=== PATIENT | male | born 1960 | race Caucasian/White ===

== ENCOUNTER 2024-05-20 14:10 | Inpatient (IN) | payer SELFPAY ==
[2024-05-20] VITALS (10 sets, daily range): BP systolic 116–182; BP diastolic 58–109; BMI 27.3
[2024-05-20] MEDS: ATIVAN 1 MG IV ×2 (09:14→21:00)
[2024-05-20] MEDS: ZOFRAN 4 MG IV (09:14)
--- NOTE | 2024-05-20 09:14 | ED.GENMED ---
History of Present Illness
General
Chief Complaint: Change in Mental Status
Source: patient
Exam Limitations: clinical condition and altered mental status
Time Seen by Provider: 05/20/24 08:56
Nursing documentation reviewed up to this point in time: agreed with
History of Present Illness
History of Present Illness:
63-year-old male diabetic alcoholic found at his friend's house not acting right last alcohol was yesterday, currently he does get some shakes possible seizures when he does not drink, this is unconfirmed, denies any trauma, fevers he feels nauseous
he looks disheveled has vomit next to his mouth he knows he is at the hospital he thinks is 2020 shaky he is not quite sure how he got here
Additional history female friend who he was staying with patient has a history of alcoholism and heroin use, he lives in [place] had some alcohol last evening apparently, this morning had a seizure patient apparently has been in rehab before, but
signed himself out
Past History
Past History
ED Past Medical History: NIDDM
Social History
Tobacco: Non-smoker
Alcohol: Daily
Drug: None
Personal: Single
Living: alone
Employment: Not employed
Review of Systems
Review of Systems
Unable to obtain full review of systems at this time due to: due to acuity
All Other Systems: Not applicable
Constitutional: Reports no symptoms; Denies fever or fatigue
EENT: Reports no symptoms
Respiratory: Reports no symptoms
Cardiac: Reports no symptoms
ABD/GI: Reports nausea
Phy Exam
Physical Exam
Physical Exam:
Physical Exam
General: 63 male with disheveled somewhat tremulous
Neck: Vomit from the right side of the face
Heart: Tachycardic
Lungs: no acute respiratory distress. clear bilaterally
Abdomen: Nontender
Neuro: Oriented to person and place thinks is 2020
Skin: no rash
Psychiatric: Disheveled
Extremities: no edema.
Course
Orders/Labs/Results
Orders:
Orders
05/20/24 08:48
EKG [Electrocardiogram (*1)] Urgent
Reason for Study: Bradycardia / Tachycardia
05/20/24 08:49
EKG- Treatment ONCE
05/20/24 09:04
Alcohol Urgent
Complete Blood Count/With Diff Urgent
Comprehensive Metabolic Panel Urgent
Glycohemoglobin (HgbA1c) Urgent
Magnesium Urgent
05/20/24 09:05
Lorazepam [Ativan] 1 mg IV NOW STA
Ondansetron Injectable [Zofran] 4 mg IV NOW STA
05/20/24 09:16
CT Head W/o Iv Contrast Urgent
Comment:
Reason For Exam: Confusion possible trauma
05/20/24 10:00
0.9% Sodium Chloride 1000 ml [Nss] 1,000 ml Mvi, Adult [Multivitamin] 10 ml Thiamine Injection 100 mg IV 250 mls/hr
05/20/24 10:03
Magnesium Sulfate 1 grams 0.9% Sodium Chloride 100 ml [Nss] 100 ml IV NOW
05/20/24 10:38
Drug Screen, Urine [Urine Drug Abuse Screen] Urgent
05/20/24 11:17
Case Management Consult ONCE
Case Management Consult: Discharge Planning
05/20/24 13:33
Admit Patient As Directed
Co-Sign Provider:
Level of Care: Inpatient admission
Assign to:: Telemetry
Physician / Group: Hospitalist
Diagnosis: Alcohol withdrwal syndrome
Reason for Telemetry: Arrhythmia
Date to Stop Telemetry: 05/23/24
Time to Stop Telemetry: 11:00
Reason for Hospitalization: Alcohol withdrawal syndrome
Expected length of stay greater than two midnights?: Yes
ELOS- Estimated Length of Stay in days: 3
I certify the patient meets the requirements for IP care: Yes
05/20/24 13:35
PRN Pain Medication Management As Directed
May give lesser potent ordered pain med per pt: Yes
preference::
Protocol:: Medication orders for pain may be administered in a
manner that supports deferring to patient preference
when the pt is:
- Requesting an ordered lesser potent pain medication.
Least to most potent pain medications are defined
as: acetaminophen < NSAID < tramadol < opioids
(morphine, oxycodone, hydromorphone).
- Requesting a lesser dose of the same medication IF
ORDERED.
- Requesting a less intrusive route of administration
if both routes are prescribed by the provider (PO <
IV).
05/20/24 13:36
Case Management Consult Once
Case Management Consult: Other
Comment: Substance abuse counseling
B-Hydroxybutyrate Urgent
Urinalysis Routine
Urine Drug Abuse Screen Routine (Cancelled)
FOLic ACID [Folvite] 1 mg 0.9% Sodium Chloride 50 ml [Nss] 50 ml IV DAILYPRN
Lorazepam [Ativan] 1 mg PO Q2HPRN PRN
MSAS SCORE As Directed
MSAS Score 0-4: Repeat MSAS every 2 hours until 0-4 for three consecutive assessments, then every 4 hours x 48
hours.
MSAS Score 5-7: For MILD withdrawl symptoms. Repeat MSAS and RASS every 2 hours
MSAS Score 8-11: For MODERATE withdrawal symptoms. Repeat MSAS and RASS every 1 hour. Consider ICU or IMU
level of care.
MSAS Score > 11: For SEVERE withdrawal symptoms. Repeat MSAS and RASS every 1 hour. Notify provider, consider
ICU level of care.
MSAS Additional Instructions: If no improvement or no decrease in score from severe to moderate within 12
hours, consult psychiatry
MSAS Notify Provider: Notify provider if patient requires more than 10 mg of Lorazepam in eight hour period.
05/20/24 13:38
Dextrose 50%-Water [Dextrose 50% Syringe] 12.5 grams IV [id number] PRN
Glucagon [GlucaGen] 1 mg IM PRN PRN
Ondansetron HCl [Zofran] 4 mg PO Q8HPRN PRN
05/20/24 13:40
Bedside Glucose Monitoring As Directed
Frequency: AC&HS
Additional Instructions:: Change to q6h if pt on TPN, tube feeding or not eating
05/20/24 13:41
DX Deep Vein Thrombosis Video Routine
05/20/24 14:00
FOLic ACID [Folvite] 1 mg PO DAILY
05/20/24 Dinner
1800 calorie (15 carb) Diabetic
At Your Request: Limited Participation
Does patient need a safe tray?: No
05/20/24 16:30
Insulin Aspart Corrective Mod [Novolog Flexpen-Moderate Resistance] See Protocol SC AC
05/20/24 18:00
Enoxaparin Sodium [Lovenox] 40 mg SC QPM
05/20/24 20:00
Thiamine Injection 200 mg IV Q12
05/21/24 06:00
Basic Metabolic Panel IN AM
Complete Blood Count/No Diff IN AM
Glycohemoglobin (HgbA1c) IN AM
05/23/24 20:00
Thiamine HCl [Vitamin B1] 100 mg PO BID
Abnormal Lab Results
05/20/24
09:04
RBC 3.89 L 10^6/uL
(4.70-6.10)
Hgb 12.5 L g/dL
(13.0-18.0)
Hct 35.1 L %
(39.0-52.0)
MCH 32.1 H pg
(27.0-31.0)
Absolute Neuts (auto) 6.6 H 10^3/uL
(1.4-6.5)
Absolute Lymphs (auto) 0.8 L 10^3/uL
(1.2-3.4)
Neutrophils % 84.0 H %
(42.2-75.2)
Lymphocytes % 9.5 L %
(20.5-51.1)
Chloride 96 L mmol/L
(98-107)
Glucose 252 H mg/dl
(70-99)
Magnesium 1.2 L mg/dl
(1.6-2.3)
Alkaline Phosphatase 191 H U/L
(38-126)
05/20/24 09:04
05/20/24 09:04
Vital Signs
Initial and Last Documented VS:
Initial Vital Signs
Temp Pulse Resp BP Pulse Ox
99 F 111 20 140/58 95
05/20/24 08:50 05/20/24 08:50 05/20/24 08:50 05/20/24 08:50 05/20/24 08:50
Last Documented Vital Signs
Temp Pulse Resp BP Pulse Ox
99 F 78 15 129/70 100
05/20/24 08:50 05/20/24 11:45 05/20/24 10:30 05/20/24 11:00 05/20/24 11:45
MDM/Problems Addressed
Differential Diagnosis Includes:
DTs alcohol withdrawal trauma electrolyte abnormality arrhythmia hypoglycemia
MDM/Problems Addressed:
Confusion
Chronic conditions affecting care:
Diabetes alcoholism
Acute Exacerbation and/or Progression of Chronic Illness:
Diabetes alcoholic
*Radiology
Radiology exam reviewed: radiology read reviewed
*Pulse Oximetry
Patient hypoxic: no
*EKG
Interpreted by ED Provider?: Yes
Interpretation: abnormal
Comparison EKG: no comparison EKG present
Heart Rate: 78
Rate: normal
Rhythm: sinus
[place]: normal axis
Ischemia: non-specific ST changes
*Agricultural Economics Professor Interpretation
Rate: normal
Interpretation: normal
Heart Rate: 78
Rhythm: sinus
*Critical Care Note
Total Time (30-74mins, 75-104mins- exclusive of procedures): Not Applicable
Update Note
Update Note:
Labs noted electrolytes replaced CT noted additional history and HPI this is an alcohol withdrawal seizure
ED Attending Note
-
Portions of this chart may have been created with voice recognition software.� Occasional wrong word or��sound alike� substitutions may have occurred due to the inherent limitations of voice recognition software.
Discharge Plan
Departure
Patient Disposition: Admit
Date of Disposition: 05/20/24
Time of Disposition: 10:39
Admit to: Telemetry
Presentation/result/management discussed w/ accepting MD/DO: Hospitalist
Patient with high blood pressure during this ER visit?: No
Condition: Fair
Discharge Problem:
Alcohol withdrawal delirium
Interventions
Interventions:
*Risk Screen - Suicide Last Done: 05/20/24 08:58
*General Assessment Last Done: 05/20/24 08:58
*Neglect/Abuse Screening Last Done: 05/20/24 08:58
ED- Fall Risk Assessment Last Done: 05/20/24 08:59
*ED COVID-19 Vaccine History Last Done: 05/20/24 08:58
ED- Pulmonary Assessment Last Done: 05/20/24 08:59
ED- Neurological Assessment Last Done: 05/20/24 08:59
ED- Cardiac Assessment Last Done: 05/20/24 08:59
[2024-05-20 09:51] LABS: % Basophils 0.5 % (0-2); % Eosinophils 0.4 % (0-6); % Immature Granulocytes 0.3 % (0-0.5); % Lymphocytes 9.5 % (20.5-51.1); % Monocytes 5.3 % (1.7-9.3); Absolute Lymphocytes 0.8 10^3/uL (1.2-3.4); Absolute Monocytes 0.4 10^3/uL (0.1-0.6); Absolute Neutrophils 6.6 10^3/uL (1.4-6.5); Hematocrit 35.1 % (39.0-52.0); Hemoglobin 12.5 g/dL (13.0-18.0); Mean Corp Hgb Conc. 35.6 g/dL (33.0-37.0); Mean Corpuscular Hgb 32.1 pg (27.0-31.0); Mean Corpuscular Volume 90.2 fL (80.0-94.0); Mean Platelet Volume 9.5 fL (7.4-10.4); Nucleated Red Blood Cells % 0 % (-); Platelet Count 157 10^3/uL (130-400); Red Blood Cell Count 3.89 10^6/uL (4.70-6.10); White Blood Cell Count 7.9 10^3/uL (4.8-10.8)
[2024-05-20 09:53] LABS: ALT (SGPT) 23 U/L (0-50); AST (SGOT) 43 U/L (17-59); Albumin 3.6 g/dl (3.5-5.0); Alkaline Phosphatase 191 U/L (38-126); Blood Urea Nitrogen 13 mg/dl (9-20); Calcium 8.7 mg/dl (8.4-10.2); Carbon Dioxide 23 mmol/L (22-30); Chloride 96 mmol/L (98-107); Estimated Creatinine Clearance 108 ml/min; Glucose 252 mg/dl (70-99); Magnesium 1.2 mg/dl (1.6-2.3); Potassium 3.6 mmol/L (3.5-5.1); Sodium 138 mmol/L (135-145); Total Protein 6.4 g/dl (6.3-8.2); eGFR > 60.00
[2024-05-20 09:56] LABS: Alcohol None Detected
[2024-05-20] MEDS: MULTIVITAMIN 1011 MG IV (10:18)
[2024-05-20] MEDS: MAGNESIUM SULFATE 102 GRAMS IV (10:18)
[2024-05-20] MEDS: MULTIVITAMIN 1011 ML IV (10:18)
--- NOTE | 2024-05-20 10:27 | PHANOTE ---
MED REC NOTE- PATIENT STATED HE TAKES INSULIN SHORT ACTING, BUT UNABLE TO FIND AT [facility], THEY DO NOT HAVE ANY RECENT FILLS FOR HIM. PATIENT STATED HE USED IT A COUPLE WEEKS AGO
--- NOTE | 2024-05-20 12:30 | CM ---
CM reviewed medical records. CM met with patient in room. Patient was pleasant and cooperative during consult. Patient stated that he lives in [place] and was up in [facility] visiting a friend. CM inquired about patient's housing options.
Patient stated that he is able to return to the [place] address
[address]
[facility]
Patient was encouraged to secure transportation to [place]. Patient stated that he would 'work on it'.
CM discussed [facility] and services available to patient. Patient stated that he would be agreeable to [facility] 'just stopping by'. CM placed call to [facility] and spoke with [facility]. [facility] will meet with patient tomorrow and update CM.
CM confirmed patient does have a PCP and is using [facility] for medication services.
PLAN: home vs Home with [facility] services.
--- NOTE | 2024-05-20 15:07 | CON.HOSP ---
Family Physician
-
Family Physician: Jass Arnett
Chief Complaint
-
Fatigue, nausea
History of Present Illness
63-year-old male with past medical history of non-insulin dependent diabetes, chronic alcohol use disorder, chronic opioid use disorder. He lives in [place], came up here for Thanksgiving yesterday. Had usual amount of drink (4 points of
whiskey), however, started appearing confused and shaking. Girlfriend (Barbara Lanier) suspected seizure activity in the morning and brought him to the ED. He does mention stopping heroin about a week before (uses heroin on a daily basis). Feels
nauseous. Unsure about vomiting. Denies fevers or chills. Denies any anxiety/palpitation/chest pain/sweating. Denies headache. No recent URI or diarrhea. Does complain of dysuria. But no frequent urination. Last bowel movement was yesterday
morning which was of normal consistency. Appetite is okay. Would like to have some chato michaelle to drink because he is extremely thirsty. Mentions he is upset and tired.
Medical History
Past Medical History
Additional Past Medical History:
see above
Additional Past Surgical History:
Bunion surgery of right toe
Social History
Tobacco: Non-smoker
Alcohol: Daily (4 points of whiskey)
Drug: None
Personal: Other (Lives with girlfriend)
Employment: Not Employed
Family History
Family History: Reviewed & Not Pertinent
Allergies / Home Medications
Allergies reflects when Allergies were last updated in [employer].
Home Medications with original date entered in [employer]
Allergy/Medication List:
Allergies
Allergy/AdvReac Type Severity Reaction Status Date / Time
No Known Allergies Allergy Verified 05/20/24 08:50
Home Medications
folic acid 1 mg tablet 1 mg PO DAILY Supplement 05/20/24
therapeutic multivitamin 1 tab PO DAILY Supplement 05/20/24
Review of Systems
-
Unable to obtain full review of systems at this time due to: Other (See HPI)
History Source: Patient
Physical Exam
Vital Signs
Vital Signs
Temp Pulse Resp BP Pulse Ox
99 F 78 15 129/70 100
05/20/24 08:50 05/20/24 11:45 05/20/24 10:30 05/20/24 11:00 05/20/24 11:45
Physical Exam
HEENT: Normocephalic, Anicteric and Other (Mucous membranes dry, dried food around mouth, pupils midsized and reactive to light)
Respiratory: Clear and Other
Cardiac: S1/S2 and Regular Rhythm
GI: Soft, Non Tender, Non Distended and Normal Bowel Sounds
Musculoskeletal: No Clubbing, No Cyanosis and No Edema
Skin: Warm and Dry
Neuro: Awake, Alert, Oriented, AO x 3, No Motor Deficits and Other (No ataxia)
Psych: Other (Slightly drowsy)
Laboratory Results
-
Laboratory Results
05/20/24 09:04
05/20/24 09:04
Total Bilirubin 1.0 mg/dl (0.2-1.3) 05/20/24 09:04
AST 43 U/L (17-59) 05/20/24 09:04
ALT 23 U/L (0-50) 05/20/24 09:04
Alkaline Phosphatase 191 U/L (38-126) H 05/20/24 09:04
Impression / Plan
-
# Alcohol withdrawal
- CIWA=6 (after 1 mg Ativan)
- No seizure activity or tremors at the time of visit
- Received Zofran PRN, Ativan 1 mg, 1 lit normal saline with multivitamin in ED
- Hypomagnesemia-magnesium drip by ED
- MSAS protocol
- Tele monitoring
- Consulted case management
- Follow BMP, CBC
# Opioid withdrawal
- COWS=4
- drug screen positive for fentanyl
- Subutex
# Svz-mzktcsa-ffestddrl diabetes
- Sliding scale insulin mod
- Diabetic diet
- HgbA1C
- B-hydroxybutirate positive, Anion gap =19, watch for DKA
# DVT prophylaxis
- Lovenox
[2024-05-20] MEDS: FOLVITE 1 MG PO (16:02)
[2024-05-20 16:42] LABS: Urine Albumin Negative (Neg - Trace); Urine Bilirubin Negative (Negative); Urine Character Clear (Clear); Urine Color Yellow; Urine Glucose 3+ (Negative); Urine Ketone 3+ (Negative); Urine Leukocyte Negative (Negative); Urine Nitrite Negative (Negative); Urine Occult Blood Negative (Negative); Urine Specific Gravity 1.025 (<1.030); Urine Urobilinogen Negative (Neg - 1+)
[2024-05-20 16:43] LABS: Phosphorus 3.3 mg/dl (2.5-4.5)
[2024-05-20 16:49] LABS: B-Hydroxybutyrate 2.78 mmol/L (0.02-0.27)
[2024-05-20 16:52] LABS: Glucose - Point of Care > 600 mg/dl (70-99)
[2024-05-20 16:57] LABS: Amphetamines Negative (Negative); Barbiturates Negative (Negative); Benzodiazepines Positive (Negative); Buprenorphine Negative (Negative); Cocaine Negative (Negative); Marijuana Negative (Negative); Methadone Negative (Negative); Methamphetamines Negative (Negative); Opiates Negative (Negative); Phencyclidine Negative (Negative); Tricyclic Antidepressants Negative (Negative)
[2024-05-20 17:02] LABS: Fentanyl, Urine Positive (Negative)
[2024-05-20 17:14] LABS: Glucose 358 mg/dl (70-99)
[2024-05-20] MEDS: NOVOLOG FLEXPEN-MODERATE RESISTANCE 11 UNITS SC (17:23)
[2024-05-20] MEDS: LOVENOX 40 MG SC (17:25)
[2024-05-20 17:42] LABS: INR 1.33; PT 16.7 Sec (11.4-14.6)
[2024-05-20 17:43] LABS: APTT 29.5 Sec (23.4-35.0)
--- NOTE | 2024-05-20 18:16 | PTCARENOTE ---
Lucien Aguilera from [facility] came to see the patient. Pt was referred for outpatient resources on d/c
[2024-05-20 18:27] LABS: Glucose - Point of Care 304 mg/dl (70-99)
[2024-05-20] MEDS: THIAMINE INJECTION 200 MG IV (20:27)
[2024-05-20 20:42] LABS: Glucose - Point of Care 329 mg/dl (70-99)
[2024-05-20] MEDS: NSS (PRESERVATIVE FREE) 0.5 ML IV (20:59)
[2024-05-20] MEDS: ZOFRAN 4 MG PO (21:01)
[2024-05-20] MEDS: NOVOLOG FLEXPEN 7 UNITS SC (21:41)
[2024-05-20] MEDS: LANTUS 0.12 UNITS SC (21:49)
--- NOTE | 2024-05-20 22:30 | PTCARENOTE ---
Addendum entered by Leyla Soria RN 05/21/24 06:19:
0600 Pt MSAS at 11, medications given. DONOR SPECIALIST notified. Pt transferred to ICU. Soft limb restraints applied at 0412. Pt sleeping.
Addendum entered by Leyla Soria RN 05/21/24 06:17:
0400 Pt becoming more restless and agitated. Pt unsteady on his feet. Pt MSAS at an 11, 2mg of ativan given. Pt experiencing nausea and vomiting, zofran given. Flor Eastman at bedside. Will recheck in an hour.
Original Note:
Pt MSAS 8. Pt BP 182/109 HR sustaining in the 130s. Christopher EastmanNP notified and at bedside. Pt becoming more confused, diaphoretic and vomiting. Medications given, see MAR.
[2024-05-20] MEDS: ATIVAN 2 MG IV (22:46)
[2024-05-20] MEDS: NSS (PRESERVATIVE FREE) 1 ML IV (22:47)
[2024-05-20 23:06] LABS: Glucose - Point of Care 267 mg/dl (70-99)
--- NOTE | 2024-05-20 23:14 | HPS.HSE ---
Addendum entered and electronically signed by Jass Giles MD 05/21/24 00:05:
Attending Addendum-
I performed a history and physical exam of the patient and discussed his management with the resident. I reviewed the resident's note and agree with the documented findings and plan of care CC/HPI- Sent to ED for etoh w/d and possible seizure
activity. Patient is fatigued and has poor recollection of events. States he is thirsty and would like treatment. Admits to using heroin but 'hasnt used in a while' Full 12 point ROS reviewed and negative except as documented Exam- vitals reviewed
in EMR GEN-NAD heart tachycardic lungs clear abd soft NT LE no edema
# ETOH w/d / AUD
- 4 pints whiskey daily
- MSAS with benzos
- advised to quit
- c/s CM/[facility]
- monitor on tele watch for seizure activity
# OUD and W/D
- uses heroin daily
- COWS
- suboxone PRN
- c/s CM/[facility]
# Hypomagnesemia
- replete
# DM2
- not taking meds
- start insulin
- check HBa1c
CODE FULL
DVTp-lovenox
ACP
Patient consented to discuss, was alone, time spent explanation of advance directives, changes in health status, patient�s health care wishes if the patient becomes unable to make health decisions, goals of care, code status, and prognosis- 16
minutes
Time spent coordinating care, review of plan of care with resident, personally reviewed previous records in EMR, med rec, labs, radiology, d/w nursing, total time documented is exclusive of any additional time listed that was spent in advance care
planning discussion -� 75 minutes
Original Note:
Family Physician
-
Family Physician: Jass Arnett
Chief Complaint
-
Fatigue, nausea
History of Present Illness
63-year-old male with past medical history of non-insulin dependent diabetes, chronic alcohol use disorder, chronic opioid use disorder. He lives in [place], came up here for Thanksgiving yesterday. Had usual amount of drink (4 points of
whiskey), however, started appearing confused and shaking. Girlfriend (Barbara Lanier) suspected seizure activity in the morning and brought him to the ED. He does mention stopping heroin about a week before (uses heroin on a daily basis). Feels
nauseous. Unsure about vomiting. Denies fevers or chills. Denies any anxiety/palpitation/chest pain/sweating. Denies headache. No recent URI or diarrhea. Does complain of dysuria. But no frequent urination. Last bowel movement was yesterday
morning which was of normal consistency. Appetite is okay. Would like to have some chato michaelle to drink because he is extremely thirsty. Mentions he is upset and tired.
Medical History
Past Medical History
Past Medical History: Reports Other (see HPI)
Additional Past Medical History:
see above
Past Surgical History: Reports Other (Bunion r toe)
Additional Past Surgical History:
Bunion surgery of right toe
Social History
Tobacco: Non-smoker
Alcohol: Daily (4 pints of whiskey)
Drug: Other (heroin every other day)
Personal: Other (Lives with girlfriend)
Living: Other (with girlfriend)
Employment: Not Employed
Family History
Family History: Not pertinent
Allergies / Home Medications
Allergies reflects when Allergies were last updated in [employer].
Home Medications with original date entered in [employer]
Allergy/Medication List:
Allergies
Allergy/AdvReac Type Severity Reaction Status Date / Time
No Known Allergies Allergy Verified 05/20/24 08:50
Home Medications
folic acid 1 mg tablet 1 mg PO DAILY Supplement 05/20/24
therapeutic multivitamin 1 tab PO DAILY Supplement 05/20/24
Review of Systems
-
Unable to obtain full review of systems at this time due to: Other (see HPI)
Physical Exam
Vital Signs
Vital Signs
Temp Pulse Resp BP Pulse Ox
98.8 F 121 20 182/109 97
05/20/24 22:36 05/20/24 22:36 05/20/24 22:36 05/20/24 22:36 05/20/24 22:36
Physical Exam
HEENT: NormoCephalic, Anicteric and Other (Mucous membranes dry, dried food around mouth, pupils midsized and reactive to ligh)
Respiratory: Clear
Cardiac: S1/S2 and Regular Rhythm
GI: Soft, Non Tender, Non Distended and Normal Bowel Sounds
Musculoskeletal: No Clubbing, No Cyanosis and No Edema
Skin: Warm and Dry
Neuro: Awake, Alert, Oriented, AO x 3, No Motor Deficits, Nonfocal/grossly intact, No Sensory Deficits, Slurred Speech (negative), Tremors (negative) and Other (slightly drowsy)
Laboratory Results
-
05/20/24 09:04
05/20/24 16:53
Laboratory Results
PT 16.7 Sec (11.4-14.6) H 05/20/24 17:22
INR 1.33 05/20/24 17:22
APTT 29.5 Sec (23.4-35.0) 05/20/24 17:22
Total Bilirubin 1.0 mg/dl (0.2-1.3) 05/20/24 09:04
AST 43 U/L (17-59) 05/20/24 09:04
ALT 23 U/L (0-50) 05/20/24 09:04
Alkaline Phosphatase 191 U/L (38-126) H 05/20/24 09:04
Impression/Plan
-
# Alcohol withdrawal
- CIWA=6 (after 1 mg Ativan)
- No seizure activity or tremors at the time of visit
- Received Zofran PRN, Ativan 1 mg, 1 lit normal saline with multivitamin in ED
- Hypomagnesemia-magnesium drip by ED
- MSAS protocol
- Tele monitoring
- Consulted case management
- Follow BMP, CBC
# Opioid withdrawal
- COWS=4
- drug screen positive for fentanyl
- Subutex
# Het-dxwywdf-zhyneeihn diabetes
- Sliding scale insulin mod
- Diabetic diet
- HgbA1C
- B-hydroxybutirate positive, Anion gap =19, watch for DKA
# DVT prophylaxis
- Lovenox
[2024-05-20] MEDS: SUBUTEX 4 MG SL (23:29)
[2024-05-20] MEDS: PHENOBARBITAL 104 MG IV (23:47)
[2024-05-21] VITALS (15 sets, daily range): BP systolic 143–183; BP diastolic 85–119; BMI 23.6
[2024-05-21] MEDS: ATIVAN 1 MG IV ×3 (00:01→21:55)
[2024-05-21] MEDS: NSS (PRESERVATIVE FREE) 0.5 ML IV ×3 (00:02→21:55)
[2024-05-21] MEDS: NSS 1000 IV ×3 (00:19→21:55)
[2024-05-21] MEDS: ATIVAN 1 MG PO (03:38)
[2024-05-21] MEDS: ATIVAN 2 MG IV ×13 (04:17→23:14)
[2024-05-21] MEDS: NSS (PRESERVATIVE FREE) 1 ML IV ×5 (04:18→13:50)
[2024-05-21] MEDS: ZOFRAN 4 MG IV ×3 (04:18→13:03)
--- NOTE | 2024-05-21 04:52 | W.PN.UPDATE ---
Update Note
Progress Note Update
At 2245 Patient was seen and evaluated. patient noted to be in bed resting, MSAS 7. RN had just given him 2mg IV Ativan for the score of 8. Advised Subutex SL, and added Phenobarbital Taper.
At 0435 RN reported patient getting out of bed, loose BM, and vomited x2, Scoring MSAS 12 for RN, confirmed patient was getting out of bed before diarrhea, possibly trying to go to bathroom. Patient seen and evaluated again. IV Zofran ordered.
Patient noted following directions, Mildly sedated, arousable, oriented to name, and mumbled he is in the hospital, At present no visible tremors and mild diaphoretic HR 93. Patient also had received IV 2mg Ativan and IV Zofran 4 mg, 5 minutes
ago. Patient is resting in bed at present. Scoring MSAS 6 for WOVEN WOOD SHADE ASSEMBLER, Restraints placed as patient gets up fast and is risk of falls. Advised to check in one hour if need to treat with IV Ativan again, will transfer patient to IMU as he is requiring
frequent MSAS assessment, therefore requiring closer monitoring.
will check stat labs as he had episodes of vomiting and loose stools. Will hold Ativan PO now.
At 0545 RN reported MSAS score of 7, will transfer patient to IMU for closer observation.
+ Benzo
+ Fentanyl
+ Alcohol Withdrawl
[2024-05-21 05:28] LABS: Hematocrit 34.8 % (39.0-52.0); Hemoglobin 12.6 g/dL (13.0-18.0); Mean Corp Hgb Conc. 36.2 g/dL (33.0-37.0); Mean Corpuscular Hgb 33.1 pg (27.0-31.0); Mean Corpuscular Volume 91.3 fL (80.0-94.0); Mean Platelet Volume 9.7 fL (7.4-10.4); Platelet Count 150 10^3/uL (130-400); Red Blood Cell Count 3.81 10^6/uL (4.70-6.10); Red Cell Dist. Width 12.8 % (11.5-14.5)
[2024-05-21 05:51] LABS: ALT (SGPT) 23 U/L (0-50); AST (SGOT) 38 U/L (17-59); Albumin 3.4 g/dl (3.5-5.0); Alkaline Phosphatase 170 U/L (38-126); Blood Urea Nitrogen 19 mg/dl (9-20); Calcium 8.4 mg/dl (8.4-10.2); Carbon Dioxide 35 mmol/L (22-30); Chloride 95 mmol/L (98-107); Direct Bilirubin 0.2 mg/dl (0.0-0.4); Estimated Creatinine Clearance 84 ml/min; Glucose 248 mg/dl (70-99); Magnesium 1.7 mg/dl (1.6-2.3); Potassium 3.2 mmol/L (3.5-5.1); Sodium 140 mmol/L (135-145); Total Bilirubin 1.2 mg/dl (0.2-1.3); Total Protein 6.7 g/dl (6.3-8.2); eGFR > 60.00
--- NOTE | 2024-05-21 06:48 | PTCARENOTE ---
report received around 0545, pt arrived at 0630, bedside report given to dayshift morning news anchor.
--- NOTE | 2024-05-21 07:42 | PTCARENOTE ---
06:45 patient transfer from [facility] due to opioid and alcohol withdrawal. COWS 35 MSAS 18. 4 point and mitts initiated due to agitation. pt confused and disoriented. ST 103 occasional 153. BP via left upper arm 183/103 ; Incontinent of bowel and
bladder. arrived with peripheral line RT AC - NSS infusing. Left upper arm peripheral line inserted. Nigh shift LEASING ASSISTANT got tiger text send with request to upgrade pt to ICU level of care in order to initiate Precedex. recommendation received to wait
for day shift provider
[2024-05-21] MEDS: PHENOBARBITAL 97.5 MG IV ×3 (08:18→21:43)
[2024-05-21 08:44] LABS: Glycohemoglobin (HgbA1c) 8.7 % (4.0-5.6)
--- NOTE | 2024-05-21 08:47 | W.PN.HOSP.TC ---
Today's Communication/Plan
-
see A/P
Assessment / Plan
Assessment / Plan
HPI: Pt sent for etoh w/d and possible seizure activity. Patient was fatigued and has poor recollection of events. Admits to using heroin but 'hasnt used in a while'.
A/P:
# ETOH w/d / AUD
- 4 pints whiskey daily
- MSAS with PRN benzos/ phenobarb taper
- advised to quit
- c/s CM/BCARES
# OUD and W/D
- uses heroin daily
- COWS
- suboxone PRN
- c/s CM/BCARES
- UDS reviewed
# Hypomagnesemia
# hypokalemia
- replete as needed
# DM2
- not taking meds
- started insulin, on Lantus 12 units HS , Cont ISS cooperage
- follow HBa1c
CODE FULL
DVTp-lovenox
DW RN
CC Mx for ETOH w/d and OUD W/D, CC time 40 min
Anticipated Discharge: > 48 hours
Subjective/Interval History
-
Date of Service: May 21, 2024
Objective Data
-
Labs:
Laboratory Results
05/21/24 05/21/24 05/21/24
05:05 05:05 05:05
WBC 10.0
Hgb 12.6 L
Hct 34.8 L
Plt Count 150
Sodium 140 Cancelled
Potassium 3.2 L Cancelled
Chloride 95 L
Carbon Dioxide
BUN
Creatinine
Glucose
Calcium
Total Bilirubin
AST
ALT
Alkaline Phosphatase
05/21/24 05/21/24 05/21/24
05:05 05:05 05:05
WBC
Hgb
Hct
Plt Count
Sodium
Potassium
Chloride Cancelled
Carbon Dioxide 35 H Cancelled
BUN 19 Cancelled
Creatinine 0.9
Glucose
Calcium
Total Bilirubin
AST
ALT
Alkaline Phosphatase
05/21/24 05/21/24 05/21/24
05:05 05:05 05:05
WBC
Hgb
Hct
Plt Count
Sodium
Potassium
Chloride
Carbon Dioxide
BUN
Creatinine Cancelled
Glucose 248 H Cancelled
Calcium 8.4 Cancelled
Total Bilirubin 1.2
AST
ALT
Alkaline Phosphatase
05/21/24 05/21/24 05/21/24
05:05 05:05 05:05
WBC
Hgb
Hct
Plt Count
Sodium
Potassium
Chloride
Carbon Dioxide
BUN
Creatinine
Glucose
Calcium
Total Bilirubin Cancelled
AST 38 Cancelled
ALT 23 Cancelled
Alkaline Phosphatase 170 H
05/21/24
05:05
WBC
Hgb
Hct
Plt Count
Sodium
Potassium
Chloride
Carbon Dioxide
BUN
Creatinine
Glucose
Calcium
Total Bilirubin
AST
ALT
Alkaline Phosphatase Cancelled
Vital Signs:
Vital Signs
Temp Pulse Resp BP Pulse Ox
37.9 C 97 23 183/103 97
05/21/24 07:51 05/21/24 07:45 05/21/24 07:45 05/21/24 06:49 05/21/24 07:45
I&O
05/20/24 05/21/24 05/22/24
06:59 06:59 06:59
Intake Total 480 / 480
Balance 480 / 480
Review of Systems
-
Unable to obtain full review of systems at this time due to: Acuity
Physical Exam
-
General: Well Developed, Well Nourished, No Apparent Distress and Comfortable; Negative Respiratory Distress
HEENT: Normocephalic, Atraumatic, Nose Appears Normal and Ears Appear Normal; Negative Oxygen
Respiratory: Clear to Auscultation and Non Labored Respirations; Negative Accessory Resp Muscle Use
Cardiac: Regular Rhythm and S1/S2
GI: Soft, Nontender, Nondistended and Normal Bowel Sounds
Skin: Warm and Dry
Neuro: Awake
Psych: Calm and Confused
Data Reviewed
-
CT Scan: Report Reviewed by me
Labs: Labs Reviewed by me
[2024-05-21] MEDS: THIAMINE INJECTION 200 MG IV ×2 (08:58→19:21)
[2024-05-21 09:07] LABS: Glucose - Point of Care 240 mg/dl (70-99)
[2024-05-21] MEDS: FOLVITE PO (09:35)
[2024-05-21] MEDS: KCL 270 MEQ IV (09:37)
[2024-05-21] MEDS: NOVOLOG FLEXPEN-MODERATE RESISTANCE 5 UNITS SC (09:41)
--- NOTE | 2024-05-21 12:11 | PTCARENOTE ---
while laying in bed supine HOB elevated 30 degrees pt had project vomiting . Post vomiting lung clear to auscultation. POx 88%RA Placed on 2L via nasal canula . pt washed head to toe, oral care done. Dr Carranza notified. will continue to monitor. COWS
35 MSAS 20. pt on Phenobarb and Ativan prn
[2024-05-21] MEDS: SUBUTEX 4 MG SL ×2 (12:59→21:07)
[2024-05-21] MEDS: NOVOLOG FLEXPEN-MODERATE RESISTANCE 3 UNITS SC ×2 (14:49→17:41)
--- NOTE | 2024-05-21 15:01 | CM ---
CM following re: discharge planning.
Reviewed pt's chart, met with ptrand left a message to pt's friend Pam.
Pt is a 63 year old male, admitted with primary dx of ETOH withdrawal. CIWA=6
Pt is not a great historian. Pt did say he lives with a friend [facility] in [facility], has no children, has a sister and a brother. CM left a message to pt's friend Pam.
CM will re-visit the pt for an accurate assessment.
D/C plan: uncertain at this time and will depend on pt's progress.
CM will follow with discharge plan updates as hospitalization progresses
[2024-05-21 15:06] LABS: Glucose - Point of Care 207 mg/dl (70-99)
[2024-05-21] MEDS: LOVENOX 40 MG SC (17:33)
[2024-05-21] MEDS: TYLENOL/FEVERALL 650 MG RECTAL (17:49)
[2024-05-21 17:54] LABS: Glucose - Point of Care 231 mg/dl (70-99)
--- NOTE | 2024-05-21 18:26 | PTCARENOTE ---
patient in bed disoriented x 3. COWS 36 MSAS 21; 4 point restraints with [address] 140's to 150's Rectal temp 100.7 Tylenol rectal administered. Phenobarb 97.5 per current order Ativan 2 mg IV prn. Lungs upper airway rhonchi b/l. occasional
productive with white thick mucus. Multiple loose stools . NSS 100 infusing via left AC
[2024-05-21] MEDS: PRECEDEX 100 IV (19:40)
[2024-05-21 20:34] LABS: Hematocrit 32.3 % (39.0-52.0); Hemoglobin 11.5 g/dL (13.0-18.0); Mean Corp Hgb Conc. 35.6 g/dL (33.0-37.0); Mean Corpuscular Volume 92.6 fL (80.0-94.0); Mean Platelet Volume 9.1 fL (7.4-10.4); Platelet Count 115 10^3/uL (130-400); Red Blood Cell Count 3.49 10^6/uL (4.70-6.10); Red Cell Dist. Width 13.2 % (11.5-14.5); White Blood Cell Count 15.3 10^3/uL (4.8-10.8)
[2024-05-21 20:44] LABS: Lactic Acid 2.5 mmol/L (0.7-2.0)
[2024-05-21 20:45] LABS: Blood Urea Nitrogen 21 mg/dl (9-20); Calcium 8.1 mg/dl (8.4-10.2); Carbon Dioxide 33 mmol/L (22-30); Chloride 103 mmol/L (98-107); Estimated Creatinine Clearance 108 ml/min; Glucose 194 mg/dl (70-99); Magnesium 1.6 mg/dl (1.6-2.3); Phosphorus 1.9 mg/dl (2.5-4.5); Sodium 142 mmol/L (135-145); eGFR > 60.00
[2024-05-21] MEDS: UNASYN IV (21:43)
[2024-05-21] MEDS: POTASSIUM PHOSPHATE 259.0909 MEQ IV (21:43)
[2024-05-21] MEDS: MAGNESIUM SULFATE 100 IV (21:55)
--- NOTE | 2024-05-21 22:05 | PTCARENOTE ---
Late entry - Received pt at 1900 agitated, restless in bed. COWs 28, MSAS 20. CARPENTER ASSISTANT Cory notified by trina GREGORY and upgraded to ICU. ICU CARPENTER ASSISTANT aware and at bedside. Precedex gtt started with good effect, currently on 0.6mcg/kg/hr. PRN ativan
and subutex given as able. Pt. febrile, requiring 15L midflow. Sepsis workup ordered. Lab results noted and discussed with CARPENTER ASSISTANT. Electrolyte replacement ordered and infusing. Pt. oriented only to self, hallucinating, talking to others who are not in
room. + tremors, diaphoretic, flushed. B/L wrist and ankle restraints in place for safety. ST on tele, HR now 110s-120s but previously 130s-150s. No edema, + pulses. Temp 100.8 via rectal probe. On 15L midflow, lungs diminished throughout, poor
effort. + bowel sounds. Vomiting reported by trina, pt. spitting out saliva at times but no vomiting noted. Incontinent of urine. Unable to place condom cath due to skin tears/irritation on penis. #20 L upper arm and #18 L upper arm patent. NSS @
100ml/hr per AUG. Mouth care and CHG bath provided. Monitoring closely
--- NOTE | 2024-05-21 23:16 | PTCARENOTE ---
Hypertensive, 160s-170s/90s. 5mg lopressor ordered and given. Pt. more calm with precedex but MSAS remains elevated >11, 2mg ativan given PRN.
Pt. bathed with CHG, had soft BM.
[2024-05-21] MEDS: LOPRESSOR 5 MG IV (23:20)
[2024-05-22] VITALS (26 sets, daily range): BP systolic 128–177; BP diastolic 68–115; PULSE 2–85; BMI 23.6
[2024-05-22] MEDS: NOVOLOG FLEXPEN-MODERATE RESISTANCE 1 UNITS SC ×3 (00:08→12:14)
[2024-05-22] MEDS: LANTUS 0.12 UNITS SC (00:08)
[2024-05-22] MEDS: ATIVAN 2 MG IV ×4 (00:10→23:51)
[2024-05-22 00:19] LABS: Glucose - Point of Care 196 mg/dl (70-99)
[2024-05-22 00:42] LABS: Urine Albumin 1+ (Neg - Trace); Urine Bilirubin Negative (Negative); Urine Character Slightly Cloudy (Clear); Urine Color Yellow; Urine Glucose 1+ (Negative); Urine Ketone Negative (Negative); Urine Leukocyte Negative (Negative); Urine Nitrite Negative (Negative); Urine Occult Blood 4+ (Negative); Urine Specific Gravity 1.025 (<1.030); Urine Urobilinogen Negative (Neg - 1+)
[2024-05-22] MEDS: NSS (PRESERVATIVE FREE) 0.5 ML IV ×6 (00:43→20:00)
[2024-05-22] MEDS: ATIVAN 1 MG IV ×8 (00:43→21:39)
[2024-05-22] MEDS: APRESOLINE 10 MG IV ×2 (01:04→21:15)
[2024-05-22 02:04] LABS: Urine Squamous Cell >30 /LPF (Few)
[2024-05-22 02:05] LABS: Urine Amorphous Seen; Urine Bacteria Many (Negative); Urine Red Blood Cell >100 /HPF (0-2); Urine Urothelial Cell >30 /LPF (FEW)
[2024-05-22 02:07] LABS: Urine Mucus Moderate
--- NOTE | 2024-05-22 02:11 | PTCARENOTE ---
Kimble catheter was inserted around 0010 for I&Os. Since then, pt. have intermittent episodes of agitation and trying to bring knees into abdomen at times. Kimble is draining zaheer urine. Discussed with DESIGN DIRECTOR - will give valium 5mg for possible bladder
spasms. Will hold on this hours episode of ativan for MSAS.
[2024-05-22] MEDS: VALIUM INJECTION 5 MG IV (02:23)
[2024-05-22] MEDS: PRECEDEX 100 IV ×3 (02:23→23:20)
[2024-05-22 03:33] LABS: Hematocrit 30.5 % (39.0-52.0); Hemoglobin 10.5 g/dL (13.0-18.0); Mean Corp Hgb Conc. 34.4 g/dL (33.0-37.0); Mean Corpuscular Hgb 32.1 pg (27.0-31.0); Mean Corpuscular Volume 93.3 fL (80.0-94.0); Red Blood Cell Count 3.27 10^6/uL (4.70-6.10); Red Cell Dist. Width 13.2 % (11.5-14.5); White Blood Cell Count 7.3 10^3/uL (4.8-10.8)
[2024-05-22 03:52] LABS: Lactic Acid 1.7 mmol/L (0.7-2.0)
[2024-05-22 03:53] LABS: Blood Urea Nitrogen 20 mg/dl (9-20); Calcium 7.4 mg/dl (8.4-10.2); Carbon Dioxide 29 mmol/L (22-30); Chloride 105 mmol/L (98-107); Estimated Creatinine Clearance 108 ml/min; Glucose 233 mg/dl (70-99); Magnesium 1.8 mg/dl (1.6-2.3); Phosphorus 3.5 mg/dl (2.5-4.5); Sodium 144 mmol/L (135-145); eGFR > 60.00
[2024-05-22] MEDS: UNASYN IV ×4 (04:55→21:15)
[2024-05-22] MEDS: ATIVAN IV (05:00)
[2024-05-22] MEDS: MAGNESIUM SULFATE 102 GRAMS IV (05:30)
[2024-05-22 06:33] LABS: Glucose - Point of Care 176 mg/dl (70-99)
[2024-05-22] MEDS: NSS (PRESERVATIVE FREE) IV (06:37)
--- NOTE | 2024-05-22 07:09 | PTCARENOTE ---
0700 patient in bed . Precedex 0.6/10.6 ml +NSS 100/hr via left upper arm #20 ; BP via Right upper arm. 150/96 MAP 112 SR 71; RR 23; 100%/4L on 2L/96% core temp 97.0;
Pupils +3 sluggish even reactive to light. Restraints to b/l UE and LE
SR 70 S1/S2 no edema +pedal pulses
Abdomen soft non tender No Nausea no vomiting
Indwelling Kimble inserted during previous shift to monitor I/O draining clear zaheer urine
skin intact. Peripheral lines x 2 left upper arm .
K-CL 40 will be adm per order for potassium level 3.0
[2024-05-22] MEDS: THIAMINE INJECTION 200 MG IV ×2 (07:21→19:59)
[2024-05-22] MEDS: NSS 1000 IV ×2 (07:21→20:31)
[2024-05-22 07:26] LABS: Platelet Count 62 10^3/uL (130-400)
[2024-05-22 07:27] LABS: Mean Platelet Volume 8.8 fL (7.4-10.4)
[2024-05-22] MEDS: KCL 270 MEQ IV ×2 (07:28→23:14)
[2024-05-22] MEDS: PHENOBARBITAL 97.5 MG IV ×3 (07:36→21:15)
--- NOTE | 2024-05-22 08:20 | W.PN.HOSP.TC ---
Today's Communication/Plan
-
see A/P
Assessment / Plan
Assessment / Plan
HPI: Pt sent for etoh w/d and possible seizure activity. Patient was fatigued and has poor recollection of events. Admits to using heroin but 'hasnt used in a while'.
A/P:
# ETOH w/d / AUD
- 4 pints whiskey daily
- upgraded to ICU and Precedex started for Alcohol withdrawal
- can cont MSAS protocol with PRN benzos/ phenobarb taper when MS improves
- advised to quit
- c/s CM/BCARES
# Likely aspiration pneumonia from N/V 2/2 alcohol withdrawal
- NPO for now with IVF support until improvement in MS
- started Unasyn, cont
# OUD and W/D
- uses heroin daily
- COWS
- suboxone PRN
- c/s CM/BCARES
- UDS reviewed
# Drop in cell line likely dilutional from IVF
- cont to monitor CBC
# Hypomagnesemia
# hypokalemia
- replete as needed
# DM2 with hyperglycemia
- A1C 8.7%
- not taking meds
- insulin was started with Lantus 12 units HS, decrease to 6 units HS with current NPO status
- Cont ISS coverage
CODE FULL
DVTp-lovenox SQ, monitor platelet count
DW RN
CC Mx for ETOH w/d and OUD W/D, CC time 40 min
Anticipated Discharge: > 48 hours
Subjective/Interval History
-
Date of Service: May 22, 2024
Objective Data
-
Labs:
Laboratory Results
05/21/24 05/22/24
20:23 03:12
WBC 15.3 H 7.3
Hgb 11.5 L 10.5 L
Hct 32.3 L 30.5 L
Plt Count 115 L D 62 L D
Sodium 142 144
Potassium 3.0 L 3.0 L
Chloride 103 105
Carbon Dioxide 33 H 29
BUN 21 H 20
Creatinine 0.7 0.7
Glucose 194 H 233 H
Calcium 8.1 L 7.4 L
Vital Signs:
Vital Signs
Temp Pulse Resp BP Pulse Ox
36.4 C 76 19 128/80 100
05/22/24 07:06 05/22/24 07:00 05/22/24 07:00 05/22/24 06:00 05/22/24 07:00
I&O
05/21/24 05/22/24 05/23/24
06:59 06:59 06:59
Intake Total 480 / 480 2907.5 / 3018.4 110.9 / 110.9
Output Total 325 / 355
Balance 480 / 480 2582.5 / 2663.4 80.9 / 80.9
Review of Systems
-
Unable to obtain full review of systems at this time due to: Acuity
Physical Exam
-
General: Well Developed, Well Nourished and Comfortable
HEENT: Normocephalic, Atraumatic, Nose Appears Normal, Ears Appear Normal and Oxygen (1-2L NC )
Respiratory: Clear to Auscultation and Non Labored Respirations; Negative Accessory Resp Muscle Use
Cardiac: Regular Rhythm and S1/S2
GI: Soft, Nontender, Nondistended and Normal Bowel Sounds
Skin: Warm and Dry
Psych: Calm
Data Reviewed
-
Diagnostic Radiology: Report Reviewed by me
CT Scan: Report Reviewed by me
Labs: Labs Reviewed by me
--- NOTE | 2024-05-22 08:31 | CON.INTV ---
Consultation
Consultation Request
Date/Time Consultation Requested: 05/22/24
Date/Time Consultation Performed: 05/22/24
Performing Provider: Eliazar
Reason for Consultation: ETOH w/d
Medical History
-
History of Present Illness:
Patient is a 63-year-old male with previous history of alcohol use disorder, heroin abuse on Subutex presenting to ER with change in mental status. He was reportedly found at his friend's house, not acting his usual self. Last alcohol use was
reportedly day prior to admission. On arrival to ER he appeared disheveled, had vomit next to his mouth and is not oriented to time or place. He has a history of extensive alcoholism and heroin use, has been to rehab in the past but has signed out
AMA. Was admitted on 05/20/2024 and placed on alcohol withdrawal protocol. Overnight developed worsening agitation requiring Precedex and therefore transferred to ICU.
Past Medical History
Past Medical History: Other (see list below)
Social History
Alcohol: Daily
Drug: IVDA
Family History
Family History: Reviewed & Not Pertinent
Allergies / Home Medications
Allergies
Allergy/AdvReac Type Severity Reaction Status Date / Time
No Known Allergies Allergy Verified 05/20/24 08:50
Home Medications
�Medication �Instructions �Recorded �Confirmed �Last Taken �Type
folic acid 1 mg tablet 1 mg PO DAILY Supplement 05/20/24 05/20/24 Unknown History
therapeutic multivitamin 1 tab PO DAILY Supplement 05/20/24 05/20/24 Unknown History
Review of Systems
-
History Source: Patient
All other systems: Negative unless noted
Vitals / Labs / Diagnostic Testing
Vital Signs
Temp Pulse Resp BP Pulse Ox
97.5 F 76 19 128/80 100
05/22/24 07:06 05/22/24 07:00 05/22/24 07:00 05/22/24 06:00 05/22/24 07:00
Lab Data
05/22/24 03:12
05/22/24 03:12
Diagnostic Testing:
Physical Exam
-
HEENT: Normocephalic, Anicteric and Moist Mucous Membranes
Cardiovascular: S1/S2 and Regular Rhythm
Respiratory: Rhonchi and Non-Labored Respirations
GI: Soft, Non Distended and Non Tender
Neurology: Tremors and Other (lethargic, not oriented to self/place, intermittently agitated)
Skin: Warm and Dry
General: Comfortable, Poor Appetite and Other (NAD)
Assessment
-
Patient is a 63-year-old male with previous history of alcohol use disorder, heroin abuse on Subutex presenting to ER with change in mental status. He was reportedly found at his friend's house, not acting his usual self. Last alcohol use was
reportedly day prior to admission. On arrival to ER he appeared disheveled, had vomit next to his mouth and is not oriented to time or place. He has a history of extensive alcoholism and heroin use, has been to rehab in the past but has signed out
AMA. Was admitted on 05/20/2024 and placed on alcohol withdrawal protocol. Overnight developed worsening agitation requiring Precedex and therefore transferred to ICU.
Acute ETOH w/d on phenobarb, MSAS, precedex
Suspect comorbid opiate w/d as well
N/V, with possible aspiration PNA
Acute hypoxic resp failure on 15L O2
Obstructive apneas/witnessed
Polysubstance abuse UDS + fentanyl, benzos
Leukocytosis, resolved
Anemia, multifactorial
Thrombocytopenia
Hyperkalemia
Hyperglycemia
Lactic acidosis
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
Chronic ETOH use
Chronic heroine abuse on Subutex
Diabetes, A1C 8.7%
Noncompliance
Plan
Agitation ongoing, now on phenobarb taper, ativan and precedex
Psychiatric history noted above including ETOH and opiate abuse
MS poor, this is likely 72 hours for ETOH/opiate w/d peaks
Pain/sedation: as noted above
RASS goals: 0
Hemodynamically stable, not requiring pressors.
Cardiac history reviewed--none, known
No prior ECHO for review
Monitor on telemetry
Oxygen needs: placed on 15L for presumed aspiration event, hypoxemia began post vomiting
Prior history of lung disease: none
Supplemental O2 as indicated to maintain sats > 89%
CXR/CT reviewed indicating NAD prior, repeat pending
Will add BIPAP for obstructive apneas while on sedation
NPO, resume diet when able
If ongoing MS changes, can place NGT for vomiting, eventual feeds
Machine Feeder Raw Stock recommendations
Aspiration precautions, HOB > 30 degrees
Speech therapy eval can be considered if at elevated risk
GI prophylaxis if indicated for mechanical ventilation >48 hours, prior history of GERD, stress ulcer formation in the critically ill
Creat at baseline, no history of renal disease
Void trials
Follow urine output, critical I/Os
Replete electrolytes as needed--K likely due to GI losses
No signs/symptoms suspicious for infectious etiology at this time
Observe off antibiotics for now
Follow fever trend, WBC count
CBC reviewed, coagulopathy likely present due to liver/ETOH dx
Plts 150 -> 115 -> 62, monitor -- may need to stop DVT ppx
DVT prophylaxis as assessed based on risk, including mechanical SCDs
Can transfuse if indicated for Hb <7, plt < 10
INR WNL
No prior h/o thyroid disease
H/o diabetes, can continue on home meds, SS for coverage
HbA1c >8, notably noncompliant
Adjustments as indicated
Diagnostic Data
Chest X-Ray: 05/21/24- Low lung volumes with mild right basilar subsegmental atelectasis.
05/21/24 No focal parenchymal opacification to suggest pneumonia.
CT Scan: HCT 05/20/24- No acute intracranial abnormality. Paranasal sinus disease within the right maxillary sinus and ethmoid air cells.
Echo:
PFT's:
Reports and relevant images were personally reviewed.
-----
Critical care time 65 mins -- this includes review of history, physical exam, medications, hemodynamic/ventilator parameters, laboratory data, imaging and discussion with house staff, pharmacy, respiratory therapy, superintendent radio communications, and nursing.
[2024-05-22] MEDS: FOLVITE PO (08:32)
[2024-05-22] MEDS: FOLVITE 50.2 MG IV (08:44)
--- NOTE | 2024-05-22 09:20 | PTCARENOTE ---
Pt agitated, tachy restless slightly with amrmolejo care. Scheduled ativan given as charted. Pt then turned/repositioned and noted to be incontinent of small ospina stool. Moira care completed. Once repositioned and sitting up in bed, mouth care done
with bloody toothbrush. Pt then noted to have periods of apnea with sats noted to drop into low 20s, recovered with stimulation to mid to high 90s. Dr Addison on unit and updated. Bipap orders obtained. Pt also on precedex currently which was
lowered as charted. Currently vss. No longer desatting on 15/8 6l of oxygen
[2024-05-22 12:00] LABS: Glucose - Point of Care 162 mg/dl (70-99)
[2024-05-22] MEDS: LOVENOX 40 MG SC (17:13)
[2024-05-22] MEDS: NOVOLOG FLEXPEN-MODERATE RESISTANCE SC (17:23)
[2024-05-22 17:33] LABS: Glucose - Point of Care 140 mg/dl (70-99)
--- NOTE | 2024-05-22 18:58 | PTCARENOTE ---
Patient in bed. RASS -1 oriented to himself only COWS 4 COWS 9 Taking off BIPAP 17:30; Oral care provided. SR 90's to ST 103; No edema; bed alarm activated. on 4L of o2
--- NOTE | 2024-05-22 20:00 | PTCARENOTE ---
Received pt resting in bed, calm, on precedex gtt at 0.4mcg. Weaned to 0.3mcg. MSAS and COWs ongoing. Pt. is more oriented, able to hold short simple conversation. Able to tell me his name and that we are at [facility]. Restraints remain
off. SR on tele, HR 80s-90s. Afebrile. + pulses. On 4L NC, spo2 97%. + bowel sounds. Incontinent small BM. NPO with sips and chips. Kimble draining zaheer urine. See I&O. #20 and #18 L upper arm IVs in place. NS @ 100ml/hr and precedex gtt infusing.
Monitoring closely
[2024-05-22] MEDS: LOPRESSOR 5 MG IV (22:05)
[2024-05-22 22:34] LABS: Blood Urea Nitrogen 20 mg/dl (9-20); Calcium 7.6 mg/dl (8.4-10.2); Carbon Dioxide 30 mmol/L (22-30); Chloride 109 mmol/L (98-107); Estimated Creatinine Clearance > 125 ml/min; Glucose 158 mg/dl (70-99); Magnesium 1.9 mg/dl (1.6-2.3); Potassium 3.1 mmol/L (3.5-5.1); Sodium 145 mmol/L (135-145); eGFR > 60.00
--- NOTE | 2024-05-22 22:42 | SUR.OPER ---
HR 130s, difficult to assess on tele afib vs SR with PACS. EKG obtained per order. Difficult to obtain clear EKG due to tremors. GEAR CUTTING MACHINE OPERATOR to bedside. 5mg IV lopressor ordered and given. HR 90s now. Having multiple PVCs - BMP and mag drawn. K 3.1, Mag
1.9. Orders placed by GEAR CUTTING MACHINE OPERATOR.
Was placed on bipap 06/02 with 4L bled through by RT around 2029. Pt tolerated well until about 2229, pulling down mask and saying he couldn't breathe. Bipap removed, place back on 4L NC. Spo2 94%. Ativan given PRN for elevated MSAS. See AUG.
--- NOTE | 2024-05-22 22:45 | PTCARENOTE ---
HR 130s, difficult to assess on tele afib vs SR with PACS. EKG obtained per order. Difficult to obtain clear EKG due to tremors. CHIEF OF STAFF DOCTOR to bedside. 5mg IV lopressor ordered and given. HR 90s now. Having multiple PVCs - BMP and mag drawn. K 3.1, Mag
1.9. Orders placed by CHIEF OF STAFF DOCTOR.
Was placed on bipap 06/02 with 4L bled through by RT around 2029. Pt tolerated well until about 2229, pulling down mask and saying he couldn't breathe. Bipap removed, place back on 4L NC. Spo2 94%. Ativan given PRN for elevated MSAS. See AUG.
[2024-05-23] VITALS (32 sets, daily range): BP systolic 125–184; BP diastolic 62–112; PULSE 2–78; BMI 24.3
[2024-05-23] MEDS: NOVOLOG FLEXPEN-MODERATE RESISTANCE SC ×3 (00:04→12:33)
[2024-05-23 00:15] LABS: Glucose - Point of Care 146 mg/dl (70-99)
[2024-05-23] MEDS: LANTUS 0.06 UNITS SC ×2 (00:18→23:12)
--- NOTE | 2024-05-23 00:19 | PTCARENOTE ---
Pt. more restless, MSAS > 11, requiring 2mg ativan per protocol. Precedex at 0.4mcg. Will titrate as needed. L upper arm #18 blown, new #18 R FA placed.
[2024-05-23] MEDS: NSS (PRESERVATIVE FREE) 0.5 ML IV ×8 (02:05→22:21)
[2024-05-23] MEDS: ATIVAN 1 MG IV ×8 (02:05→22:22)
[2024-05-23] MEDS: ZOFRAN 4 MG IV ×2 (04:23→16:07)
[2024-05-23] MEDS: UNASYN IV ×4 (04:23→21:00)
--- NOTE | 2024-05-23 04:39 | PTCARENOTE ---
Pt. rested calmly for last few hours. Bathed with CHG, pt. awoken and expressing he is nauseous - zofran given. AM labs drawn. Mouth care provided
[2024-05-23 05:21] LABS: Hematocrit 28.5 % (39.0-52.0); Mean Corp Hgb Conc. 35.1 g/dL (33.0-37.0); Mean Corpuscular Hgb 33.1 pg (27.0-31.0); Mean Corpuscular Volume 94.4 fL (80.0-94.0); Mean Platelet Volume 10.5 fL (7.4-10.4); Platelet Count 58 10^3/uL (130-400); Red Blood Cell Count 3.02 10^6/uL (4.70-6.10); Red Cell Dist. Width 13.4 % (11.5-14.5); White Blood Cell Count 5.9 10^3/uL (4.8-10.8)
[2024-05-23 05:26] LABS: Blood Urea Nitrogen 20 mg/dl (9-20); Calcium 7.3 mg/dl (8.4-10.2); Carbon Dioxide 30 mmol/L (22-30); Chloride 112 mmol/L (98-107); Estimated Creatinine Clearance > 125 ml/min; Glucose 145 mg/dl (70-99); Magnesium 1.9 mg/dl (1.6-2.3); Potassium 3.4 mmol/L (3.5-5.1); Sodium 147 mmol/L (135-145); eGFR > 60.00
[2024-05-23] MEDS: NSS 1000 IV ×2 (07:10→17:44)
--- NOTE | 2024-05-23 07:11 | PTCARENOTE ---
Received pt side lying with his eyes closed. He opened his eyes to verbal and tactile stimuli. He is unaware of his surroundings or what the current year it is. He is asking if he can lay down on the couch. I unsuccessfully oriented him to place,
event & time. He has garbled speech. +2 anasarca. Poor inspiratory effort. VVery dim breath sounds in the bases. Hyperactive BSX4. Temperature sensing marmolejo with small amounts of zaheer urine. Pericare/marmolejo care given. Repositioned him and pad
changed. He was informed of the plan of care. Safe environment maintained. Will continue to monitor.
[2024-05-23] MEDS: KCL 270 MEQ IV (07:28)
[2024-05-23] MEDS: THIAMINE INJECTION 200 MG IV (07:51)
--- NOTE | 2024-05-23 08:30 | W.PN.INTV ---
Today's Communication / Plan
Recommendations
Precedex
COWS
Aspiration precautions
PT once he is more awake and can participate
Before he starts to intake solid food check DISTRICT SERVICE MANAGER evaluation
Phenobarbital
Antibiotics for RLL/RML pneumonia due to aspiration
Supportive care
Assessment
-
Patient is a 63-year-old male with previous history of alcohol use disorder, heroin abuse on Subutex presenting to ER with change in mental status. He was reportedly found at his friend's house, not acting his usual self. Last alcohol use was
reportedly day prior to admission. On arrival to ER he appeared disheveled, had vomit next to his mouth and is not oriented to time or place. He has a history of extensive alcoholism and heroin use, has been to rehab in the past but has signed out
AMA. Was admitted on 05/20/2024 and placed on alcohol withdrawal protocol. Overnight developed worsening agitation requiring Precedex and therefore transferred to ICU.
Impression:
Acute ETOH w/d on phenobarb, MSAS, precedex
Suspect comorbid opiate w/d as well
N/V, with possible aspiration PNA in the RLL/RML
Acute hypoxic resp failure on 15L O2
Obstructive apneas/witnessed
Polysubstance abuse UDS + fentanyl, benzos
Leukocytosis, resolved
Anemia, multifactorial
Thrombocytopenia
Hyperkalemia
Hyperglycemia
Lactic acidosis
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
Chronic ETOH use
Chronic heroine abuse on Subutex
Diabetes, A1C 8.7%
Noncompliance
Plan
He is lethargic this morning and in no acute distress, not agitated on Precedex drip
Still having signs of opiate withdrawal with diarrhea and diaphoresis
Remains on phenobarbital and I will resume Subutex
COWS
Psychiatric history noted above including ETOH and opiate abuse
Pain/sedation: as noted above
RASS goals: 0
Hemodynamically stable, not requiring pressors.
Cardiac history reviewed--none, known
No prior ECHO for review
Monitor on telemetry
Oxygen needs: placed on 15L for presumed aspiration event, hypoxemia began post vomiting --> this AM he was on 2-4L/min and saturating well at 97%
prn BiPAP as long as now an aspiration risk, otherwise can use HFNC
Prior history of lung disease: none
Supplemental O2 as indicated to maintain sats > 89%
CXR reviewed from 05/22/2024 showing RLL/RML pneumonia likely due to aspiration from vomiting
Has concerns for RML aspiration --> continue Unasyn, and would complete 5-7 days assuming he remains afebrile and continues to clinically prove for the last 48 hours prior to stopping antibiotics
Follow fever trend, WBC count
NPO, resume diet when able --> will start clear liquid diet today if he awakens
Hat Band Attacher recommendations
Aspiration precautions, HOB > 30 degrees
PT once he awakens more and can participate with PT
Creat at baseline, no history of renal disease
Void trials
Follow urine output, critical I/Os
Keep K>4, Mg>2
CBC reviewed, coagulopathy likely present due to liver/ETOH dx
Abdominal ultrasound performed today showing heterogeneity of the hepatic echotexture with mildly irregular hepatic capsular contour, suspicious for cirrhosis
Transfuse to keep platelets >20k, and transfuse to keep Hb >7
INR WNL
Goal BG 140-180 with ISS q6hr
HbA1c: 8.7 on 05/20/2024
DVT ppx: HSQ q12hr given risk for bleeding with downtrending plt count
Diagnostic Data
Chest X-Ray: 05/21/24- Low lung volumes with mild right basilar subsegmental atelectasis.
05/21/24 No focal parenchymal opacification to suggest pneumonia.
CT Scan: HCT 05/20/24- No acute intracranial abnormality. Paranasal sinus disease within the right maxillary sinus and ethmoid air cells.
Reports and relevant images were personally reviewed.
-----
Critical care statement: A total of 40 minutes of critical care time was provided for this patient today. This includes management of unstable vital signs, evaluation of the patient at bedside, reviewing the patient's pertinent medical records
including radiographs, microbiology, laboratory evaluations, and discussion with primary team, consultants, pharmacy, nutrition, physical therapy, case management, charge nurse, critical care nursing, and respiratory therapy.
Subjective Dataa
Subjective Data
Date of Service:
Date of Service: May 23, 2024
Chief Complaint: Bullard Machine Operator Follow Up
Subjective:
Pt seen and evaluated this AM. Lethargic this AM, remains on precedex at 0.2mcg/kg/hr. HR 72, BP 130/77 and saturating 97% at 4L/min.
Review of Systems
General: Other (Unable to obtain given patient's acute clinical status)
Objective Data
Data Reviewed
Vital Signs / I&O / Oxygen:
Vital Signs
Temp Pulse Resp BP Pulse Ox
98 F 75 19 127/90 98
05/23/24 07:43 05/23/24 07:00 05/23/24 07:00 05/23/24 07:00 05/23/24 07:00
Intake and Output
05/22/24 05/23/24 05/24/24
06:59 06:59 06:59
Intake Total 2907.5 / 3018.4 2947.1 / 3052.5 105.4 / 105.4
Output Total 325 / 355 835 / 860 25 / 25
Balance 2582.5 / 2663.4 2112.1 / 2192.5 80.4 / 80.4
SaO2 98
Nasal Cannula flow liters per 4
minute
Physical Exam
General: Respiratory Distress (negative), Chills (negative) and Sweats (negative)
HEENT: Normocephalic and Anicteric
Cardiovascular: S1-S2 and Peripheral Edema (negative)
Respiratory: Clear, Wheeze (negative), Crackles (negative), Rhonchi (negative) and Non-Labored Respirations
GI: Soft, Non Distended, Non Tender and Normal Bowel Sounds
Neurology: Tremors (negative) and Lethargic (Arousable to voice and tactile stimuli but then quickly falls back asleep)
Skin: Warm, Dry, Jaundice (negative) and Rash (negative)
Labs/Micro/Reports
Lab Data
05/23/24 04:29
05/23/24 04:29
Microbiology
05/21/24 20:23 Blood/Venous Blood Culture - Preliminary
No Growth in 24 hours- Final report to follow
05/21/24 20:24 Blood/Venous Blood Culture - Preliminary
No Growth in 24 hours- Final report to follow
[2024-05-23] MEDS: PHENOBARBITAL 65 MG IV ×3 (09:00→21:00)
[2024-05-23] MEDS: FOLVITE PO (09:08)
--- NOTE | 2024-05-23 10:05 | PTCARENOTE ---
With the pt's permission, an update was provided to Hedy Riley (pt's best friend). She informed me that he was visiting his GF Griselda in [place] for Thanksgiving when this occurred. She will be visiting within the next day or two.
[2024-05-23 12:09] LABS: ALT (SGPT) 19 U/L (0-50); AST (SGOT) 28 U/L (17-59); Albumin 2.5 g/dl (3.5-5.0); Alkaline Phosphatase 114 U/L (38-126); Total Bilirubin 0.5 mg/dl (0.2-1.3); Total Protein 5.1 g/dl (6.3-8.2)
[2024-05-23 12:10] LABS: Venous Blood Gas B.E. 2.6 mmol/L (-4 to +4); Venous Blood Gas HCO3 27.2 mmol/L (22-27); Venous Blood Gas O2 Sat % 98.8 %; Venous Blood Gas pCO2 41 mmHg (35-48); Venous Blood Gas pH 7.43 (7.32-7.43); Venous Blood Gas pO2 154 mmHg (30-50)
[2024-05-23 12:18] LABS: APTT 35.5 Sec (23.4-35.0)
[2024-05-23] MEDS: MAGNESIUM SULFATE 100 IV (12:20)
[2024-05-23 12:32] LABS: Glucose - Point of Care 122 mg/dl (70-99)
[2024-05-23 12:45] LABS: TSH Reflex To Free T4 1.42 uIU/ml (0.47-4.68)
[2024-05-23] MEDS: APRESOLINE 10 MG IV ×3 (13:01→21:12)
--- NOTE | 2024-05-23 13:18 | W.PN.HOSP.TC ---
Addendum entered and electronically signed by Willian Quezada MD 05/23/24 16:15:
Physical Exam
NAD, resting comfortably in bed
On Precedex and BiPAP
Scleral anicteric
Moist mucous membranes
No JVD
CTA bilateral
Normal S1-S2 no murmurs
Soft nontender nondistended bowel sounds active
No peripheral pitting edema
Assessment and Plan
Alcohol use disorder with withdrawal
-Thiamine
-Folate
-Precedex wean as tolerated
-Continue msas
Acute hypoxemic respiratory failure likely due to aspiration pneumonia
-N.p.o.
-Unasyn
-Pulmonary following for BiPAP at bedtime while on Precedex
Chronic opioid use disorder
-COWS
-As needed Suboxone
-UDS positive for fentanyl
Thrombocytopenia
-4 T-score intermediate
-Hold Lovenox
-Check HIT panel
-Coags LFTs
Paroxysmal atrial fibrillation with RVR, now resolved
-On Precedex which can cause bradycardia therefore hold initiating rate controlling agents as in sinus rhythm and autoconverted
-Check TSH
-2D echocardiogram
-Low-dose beta-rhonda
Electrolyte abnormalities
-Replete as needed
Diabetes type 2
-A1c 8.7
-Continue long and short acting insulin
-SSI
-Carb controlled diet when able to eat
-Goal blood glucose 1 40-1 80
Original Note:
Today's Communication/Plan
-
Check TSH, HIT panel, hepatitis panel, coagulation studies
Hold on Lovenox, SCD for DVT prophylaxis
Abdominal ultrasound
2D echo
Low-dose beta-rhonda
Assessment / Plan
Assessment / Plan
HPI: Pt sent for etoh w/d and possible seizure activity. Patient was fatigued and has poor recollection of events. Admits to using heroin but 'hasnt used in a while'. Had an episode of A-fib last night
A/P:
# ETOH w/d / AUD
- 4 pints whiskey daily
- upgraded to ICU on 05/21
- Precedex was able to be weaned from 0.4-0.2 this morning
- Cont MSAS protocol with PRN benzos/ phenobarb taper
- advised to quit
- c/s CM/[facility]
# Acute hypoxic respiratory failure possibly due to aspiration pneumonia
- NPO for now, receiving 1 lit N/S q10h @ 100 cc/h
- Unasyn (day 3)
- Appreciate pulm-BiPAP HS for sleep apnea
- Was able to wean off FiO2-now on room air
# Chronic opioid use disorder
- uses heroin every other day
- COWS
- suboxone SL PRN when able
- c/s CM/[facility]
- UDS reviewed. Positive for fentanyl
#Drop in platelet count
- 4 T-score=14% (translating to intermediate risk); will hold Lovenox for now
- SCD for DVT prophylaxis
- Cont to monitor CBC
- Check coagulation panel, hepatitis panel, HIT panel
- abdominal ultrasound (05/23): Some apparent heterogeneity of the hepatic echotexture with mildly irregular hepatic capsular contour, suspicious for cirrhosis. There is very small volume perihepatic ascites.
# Tachycardia
- Paroxysmal A-fib with RVR on twelve-lead EKG (05/22)-now resolved
- Check TSH
- 2D-echo: Normal regional wall motion. Top normal left ventricular wall thickness. Left ventricular ejection fraction is 65-70%. No significant valvular disease.
- Low-dose B-rhonda
# Hypomagnesemia and hypokalemia
- Replete as needed
# History of DMII
- A1C 8.7%, noncompliant
- Insulin was started with Lantus 12 units HS, currently 6 units HS with current NPO status
- Currently rate controlled with SSI and basal insulin
CODE FULL
Anticipated Discharge: 24 - 48 hours
Subjective/Interval History
-
Date of Service: May 23, 2024
Patient is drowsy and difficult to stay awake. Opens eyes to verbal command and after hearing his name. Has rambling speech.
Objective Data
-
Labs:
Laboratory Results
05/23/24 05/23/24
04:29 11:49
WBC 5.9
Hgb 10.0 L
Hct 28.5 L
Plt Count 58 L
APTT 35.5 H
Sodium 147 H
Potassium 3.4 L
Chloride 112 H
Carbon Dioxide 30
BUN 20
Creatinine 0.6 L
Glucose 145 H
Calcium 7.3 L
Total Bilirubin 0.5
AST 28
ALT 19
Alkaline Phosphatase 114
Vital Signs:
Vital Signs
Temp Pulse Resp BP Pulse Ox
97.7 F 70 17 150/80 94
05/23/24 11:17 05/23/24 13:01 05/23/24 12:10 05/23/24 13:01 05/23/24 12:10
I&O
05/22/24 05/23/24 05/24/24
06:59 06:59 06:59
Intake Total 2907.5 / 3018.4 2947.1 / 3052.5 989.8 / 989.8
Output Total 325 / 355 835 / 860 160 / 160
Balance 2582.5 / 2663.4 2112.1 / 2192.5 829.8 / 829.8
Review of Systems
-
Unable to obtain full review of systems at this time due to: Acuity (Patient is sedated and not fully oriented.)
Physical Exam
-
HEENT: Normocephalic, Atraumatic, Anicteric and PERRLA (Pupils midsized, reactive to light)
Respiratory: Crackles (Mild bilateral crackles) and Other (on BiPAP)
Cardiac: Regular Rhythm, S1/S2 and Other (Not tachycardic)
GI: Soft, Nontender, Nondistended and Normal Bowel Sounds
Genito-urinary: Kimble (Draining zaheer urine)
Musculoskeletal: No Clubbing, No Cyanosis and No Edema
Skin: Warm and Dry
Neuro: Tremors (Negative) and Sedated (On 0.2 Precedex, arousable to verbal command)
--- NOTE | 2024-05-23 15:04 | CM ---
CM following re: discharge planning.
Discussed in Rounds, reviewed pt's chart, met with pt and spoke to pt's friend Pam [phone].
Pt is more awake today, as able to tell me where he lives and his friend Pam phone number. pt admitted to drinking 2 pints of tea-bin daily. Pt gave me his permission to talk to Pam and another friend Hedy but he does not remember
Hedy's phone number.
CM spoke to friend Pam who stated she lives in [place], pt's car is parked at her house. Pam stated that pt has another friend Hedy [phone] and pt's has sister Iris Gee [phone]. Pam confirmed that pt does drinks
up to 2 pints of tea-bin and pt's bigger problem is his addiction to heroin. Pam stated that pt has [facility]. Pam stated she will visit the pt today.
Pt referred to [facility] for resources of D&A treatment programs and [facility] will visit the pt when clinically appropriate. .
D/C plan: home to friend Pam's house with [facility] to follow.
CM will follow with discharge plan updates as hospitalization progresses
--- NOTE | 2024-05-23 15:40 | PTCARENOTE ---
pt attempting to get OOB, his face is very flushed with diaphoresis noted. He stated he was going to the bathroom. He was guided back to bed. HR elevated, BP elevated. Medicated for MSAS 8.
--- NOTE | 2024-05-23 16:00 | PTCARENOTE ---
C/O thirst. Interactions appropriate. Face remains flushed with mild diaphoresis. C/O severe epigastric burning and guarding his epigastric region. Dr. Gore notified via TT. Orders obtained.
[2024-05-23] MEDS: ZANAFLEX 2 MG PO (16:17)
[2024-05-23] MEDS: LOPRESSOR 5 MG IV (16:17)
--- NOTE | 2024-05-23 16:31 | PTCARENOTE ---
COWS 15, MSAS 9, medicated for MSAS, Zaneflex administered along with Zofran. Dr. Gore notified of escalating symptoms of withdrawal, reconsidering COWS medication protocol. Will continue to monitor.
[2024-05-23] MEDS: MAALOX 30 ML PO (16:38)
[2024-05-23] MEDS: NOVOLOG FLEXPEN-MODERATE RESISTANCE 1 UNITS SC (17:26)
[2024-05-23] MEDS: SUBUTEX 4 MG SL ×2 (17:32→22:11)
[2024-05-23 17:37] LABS: Glucose - Point of Care 171 mg/dl (70-99)
[2024-05-23] MEDS: PRECEDEX 100 IV (17:44)
[2024-05-23] MEDS: NSS (PRESERVATIVE FREE) 1 ML IV ×2 (19:13→21:13)
[2024-05-23] MEDS: ATIVAN 2 MG IV ×2 (19:14→21:13)
--- NOTE | 2024-05-23 19:41 | PTCARENOTE ---
pt received from previous rn- restless, able to say name and year, unable to answer other orientation questions appropriately. pt restless in bed, wreching, abdominal pain- pt redirectable and able to follow commands. full bed bath and linen change
provided- pt diaphoretic, small bm. marmolejo draining zaheer urine with sediment. sinus tach on monitor with pacs and pvcs. general +2 anasarca. ivf continue and precedex per order. all safety precautions in place, call valles within reach. bed alarm
tested- functioning and on. see aug.
[2024-05-23] MEDS: VITAMIN B1 PO (19:45)
--- NOTE | 2024-05-23 21:14 | PTCARENOTE ---
pt continues to be increasingly restless, agitated, thrashing in bed. see mar. attempts to redirect pt. on 1:1 observation for impulsivity and attempts to climb oob
--- NOTE | 2024-05-23 21:26 | PTCARENOTE ---
pt constantly trying to get oob, not able to redirect at this time, pt increasingly agitated, dexter stoner at bedside four point restraints applied per order.
[2024-05-23] MEDS: NOVOLOG FLEXPEN-MODERATE RESISTANCE 3 UNITS SC (23:12)
[2024-05-23 23:21] LABS: Glucose - Point of Care 224 mg/dl (70-99)
--- NOTE | 2024-05-23 23:57 | PTCARENOTE ---
pt msas and cows improved- remains on precedex, see mar. pt on bipap and tolerating. assessment unchanged further
[2024-05-24] VITALS (29 sets, daily range): BP systolic 131–177; BP diastolic 78–129; PULSE 2–75; BMI 25.4
[2024-05-24] MEDS: NSS 1000 IV ×2 (03:02→17:28)
[2024-05-24] MEDS: UNASYN IV ×4 (03:02→21:28)
[2024-05-24 03:43] LABS: INR 1.67; PT 19.9 Sec (11.4-14.6)
--- NOTE | 2024-05-24 04:05 | PTCARENOTE ---
ekg completed, pt arouses to tactile, weaning precedex as tolerated. labs sent. pt in nsr. see cows and msas flowsheets
[2024-05-24 04:13] LABS: Blood Urea Nitrogen 22 mg/dl (9-20); Calcium 7.3 mg/dl (8.4-10.2); Carbon Dioxide 24 mmol/L (22-30); Chloride 115 mmol/L (98-107); Estimated Creatinine Clearance > 125 ml/min; Glucose 154 mg/dl (70-99); Magnesium 2.1 mg/dl (1.6-2.3); Phosphorus 2.8 mg/dl (2.5-4.5); Potassium 3.5 mmol/L (3.5-5.1); Sodium 147 mmol/L (135-145); eGFR > 60.00
[2024-05-24 04:39] LABS: Hematocrit 30.9 % (39.0-52.0); Hemoglobin 10.4 g/dL (13.0-18.0); Mean Corp Hgb Conc. 33.7 g/dL (33.0-37.0); Mean Corpuscular Hgb 32.6 pg (27.0-31.0); Mean Corpuscular Volume 96.9 fL (80.0-94.0); Mean Platelet Volume 9.8 fL (7.4-10.4); Platelet Count 73 10^3/uL (130-400); Red Blood Cell Count 3.19 10^6/uL (4.70-6.10); Red Cell Dist. Width 13.7 % (11.5-14.5); White Blood Cell Count 5.3 10^3/uL (4.8-10.8)
[2024-05-24 04:43] LABS: TSH Reflex To Free T4 1.64 uIU/ml (0.47-4.68)
[2024-05-24 04:45] LABS: Hepatitis B Surface Antigen Negative (Negative)
[2024-05-24 04:48] LABS: Hepatitis A IgM Antibody Negative (Negative); Hepatitis B Core Ab, IgM Negative (Negative)
[2024-05-24 05:06] LABS: Hepatitis B Core Ab, Total Negative (Negative); Hepatitis B Surface Antibody Negative; Hepatitis C Antibody Negative (Negative)
[2024-05-24 05:08] LABS: Hepatitis A Antibody, Total Negative (Negative)
[2024-05-24] MEDS: KCL 270 MEQ IV (05:15)
[2024-05-24] MEDS: NOVOLOG FLEXPEN-MODERATE RESISTANCE SC ×3 (05:18→23:27)
--- NOTE | 2024-05-24 05:18 | PTCARENOTE ---
ekg and am labs completed. k rider infusing per order. weaning precedex as tolerated. pt much more calm, restraints removed.
[2024-05-24 05:32] LABS: Glucose - Point of Care 123 mg/dl (70-99)
[2024-05-24] MEDS: PRECEDEX 100 IV (06:12)
[2024-05-24] MEDS: NSS (PRESERVATIVE FREE) 0.5 ML IV ×3 (06:13→22:15)
[2024-05-24] MEDS: ATIVAN 1 MG IV ×3 (06:14→22:15)
[2024-05-24] MEDS: APRESOLINE 10 MG IV ×4 (06:14→21:17)
--- NOTE | 2024-05-24 06:20 | PTCARENOTE ---
pt increasingly restless, rass of +1, msas 5. able to state he's at [facility], bipap off and on 4LNC.
[2024-05-24] MEDS: VITAMIN B1 100 MG PO ×2 (07:24→19:18)
[2024-05-24] MEDS: FOLVITE 1 MG PO (07:24)
[2024-05-24] MEDS: PHENOBARBITAL 65 MG IV ×3 (07:24→21:17)
[2024-05-24] MEDS: SUBUTEX 4 MG SL (07:36)
--- NOTE | 2024-05-24 07:54 | PTCARENOTE ---
Received patient from manufacturing shift supervisor. Patient is calling out during report handoff, asking for water. States who he is and that he is from [place] but unable to state where he is. keeps asking for Barbara. Able to move all extemities, pupils are 2-3
equal. Patient is on 4L, 96%. He is sinus tach on monitor. Patient does complain of nausea, no vomiting. Kimble for urine output. Patient is written for clears, will offer when more awake. repositioned patient and patient was able to sit up.
COWS assessment and MSAS completed. Patient is generally shirlene/flushed appearing. nausea, had loose stool overnight. PRN subutex given and will attempt to wean off precedex. Will review orders. bed alarm on and patient is in direct view from
nurses station.
--- NOTE | 2024-05-24 08:28 | W.PN.INTV ---
Today's Communication / Plan
Recommendations
Precedex currently on hold - try to keep off; he did need it earlier this AM from last night
COWS
Aspiration precautions
PT once he is more awake and can participate
KITCHEN OPERATOR currently recommends NPO
Phenobarbital
Lower doses of ativan given his lethargic state
Antibiotics for RLL/RML pneumonia due to aspiration
Supportive care
Assessment
-
Patient is a 63-year-old male with previous history of alcohol use disorder, heroin abuse on Subutex presenting to ER with change in mental status. He was reportedly found at his friend's house, not acting his usual self. Last alcohol use was
reportedly day prior to admission. On arrival to ER he appeared disheveled, had vomit next to his mouth and is not oriented to time or place. He has a history of extensive alcoholism and heroin use, has been to rehab in the past but has signed out
AMA. Was admitted on 05/20/2024 and placed on alcohol withdrawal protocol. Overnight developed worsening agitation requiring Precedex and therefore transferred to ICU.
Impression:
Acute ETOH w/d on phenobarb, MSAS, precedex
Suspect comorbid opiate w/d as well
N/V, with possible aspiration PNA in the RLL/RML
Acute hypoxic resp failure on 15L O2
Obstructive apneas/witnessed
Polysubstance abuse UDS + fentanyl, benzos
Leukocytosis, resolved
Anemia, multifactorial
Thrombocytopenia
Hyperkalemia - resolved
Hyperglycemia
Lactic acidosis - resolved as of 05/22/2024
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
Chronic ETOH use
Chronic heroine abuse on Subutex
Diabetes, A1C 8.7%
Noncompliance
Plan
He is lethargic again this morning and in no acute distress; Precedex drip currently off
Believe that he is receiving too much Ativan overall; he is also on phenobarbital
Hold Subutex for now
Continue COWS
Psychiatric history noted above including ETOH and opiate abuse
Pain/sedation: as noted above
RASS goals: 0
Eventual psych consult
Hemodynamically stable, not requiring pressors.
Cardiac history reviewed--none, known
No prior ECHO for review
Monitor on telemetry
Oxygen needs: placed on 15L for presumed aspiration event, hypoxemia began post vomiting --> this AM he was on 4L/min and saturating well at 95%
prn BiPAP as long as now an aspiration risk, otherwise can use HFNC
Prior history of lung disease: none
Supplemental O2 as indicated to maintain sats > 89%
CXR reviewed from 05/22/2024 showing RLL/RML pneumonia likely due to aspiration from vomiting
Has concerns for RML aspiration --> continue Unasyn, and would complete 5-7 days assuming he remains afebrile and continues to clinically prove for the last 48 hours prior to stopping antibiotics
Follow fever trend, WBC count
Diet as per KITCHEN OPERATOR
Territory Sales Manager recommendations
Aspiration precautions, HOB > 30 degrees
PT once he awakens more and can participate with PT
Creat at baseline, no history of renal disease
Void trials
Follow urine output, critical I/Os
Keep K>4, Mg>2
CBC reviewed, coagulopathy likely present due to liver/ETOH dx
Abdominal ultrasound performed on 05/23/2024 showing heterogeneity of the hepatic echotexture with mildly irregular hepatic capsular contour, suspicious for cirrhosis
Transfuse to keep platelets >20k, and transfuse to keep Hb >7
INR WNL
Goal BG 140-180 with ISS q6hr with lantus
HbA1c: 8.7 on 05/20/2024
DVT ppx: Start HSQ
Continue with ICU level of care for this patient who is requiring Precedex drip at times throughout the day/night. Once off Precedex for >12-24 hours then will downgrade out of ICU to IMU.
Diagnostic Data
Chest X-Ray: 05/21/24- Low lung volumes with mild right basilar subsegmental atelectasis.
05/21/24 No focal parenchymal opacification to suggest pneumonia.
CT Scan: HCT 05/20/24- No acute intracranial abnormality. Paranasal sinus disease within the right maxillary sinus and ethmoid air cells.
Reports and relevant images were personally reviewed.
-----
Critical care statement: A total of 44 minutes of critical care time was provided for this patient today. This includes management of unstable vital signs, evaluation of the patient at bedside, reviewing the patient's pertinent medical records
including radiographs, microbiology, laboratory evaluations, and discussion with primary team, consultants, pharmacy, nutrition, physical therapy, case management, charge nurse, critical care nursing, and respiratory therapy.
Subjective Dataa
Subjective Data
Date of Service:
Date of Service: May 24, 2024
Chief Complaint: Yarn Packer Follow Up
Subjective:
Pt seen and evaluated this AM. HR 91, SpO2 97% and BP 164/100. He was on 4 point restraints overnight and precedex restarted. COWS 14 this AM. Currently off precedex but was on up until this AM. This morning he is lethargic again, arousable to
voice and tactile stimulation.
Review of Systems
General: Other (Unable to obtain due to patient's acute clinical status)
Objective Data
Data Reviewed
Vital Signs / I&O / Oxygen:
Vital Signs
Temp Pulse Resp BP Pulse Ox
97.4 F 123 13 146/93 96
05/24/24 08:04 05/24/24 08:00 05/24/24 08:00 05/24/24 08:00 05/24/24 08:20
Intake and Output
05/23/24 05/24/24 05/25/24
06:59 06:59 06:59
Intake Total 2947.1 / 3052.5 3688.4 / 3863.2 274.8 / 274.8
Output Total 835 / 860 705 / 745 40 / 40
Balance 2112.1 / 2192.5 2983.4 / 3118.2 234.8 / 234.8
SaO2 96
Nasal Cannula flow liters per 4
minute
Physical Exam
General: Respiratory Distress (negative), Comfortable, Chills (negative) and Sweats (negative)
HEENT: Normocephalic and Anicteric
Cardiovascular: S1-S2, Peripheral Edema (negative) and Other (Tachycardic)
Respiratory: Clear, Wheeze (negative), Crackles (negative), Rhonchi (negative) and Non-Labored Respirations
GI: Soft, Non Distended, Non Tender and Normal Bowel Sounds
Neurology: Tremors (negative), Lethargic (Arousable to voice and tactile stimuli but then quickly falls back asleep) and Other (Pupils 4 mm bilaterally and sluggish)
Skin: Warm, Dry, Jaundice (negative) and Rash (negative)
Labs/Micro/Reports
Lab Data
05/24/24 03:23
05/24/24 03:23
Laboratory Results
05/23/24 05/24/24
11:49 03:23
PT 19.9 H
INR 1.67
APTT 35.5 H
Microbiology
05/21/24 20:24 Blood/Venous Blood Culture - Preliminary
No Growth in 48 hours- Final report to follow
05/21/24 20:23 Blood/Venous Blood Culture - Preliminary
No Growth in 48 hours- Final report to follow
05/22/24 00:35 Urine Urine Culture - Final
NO GROWTH
--- NOTE | 2024-05-24 09:10 | PTOTSP ---
Speech Language Pathology
Pt seen for clinical bedside swallow evaluation. Currently on clear liquids. P.O. trials of thin liquids via pipetted straw/straw and puree provided. Pt attempting to bite plastic spoon when introduced into oral cavity and stated the 'hard
outside' of the applesauce was sticking in his throat. Immediate cough with thin liquids. Pt is at a high risk for aspiration given mentation and drowsiness.
Recommend:
(1) NPO
(2) Oral care 4x/day with suctioning as needed
(3) Allow sips of water sparingly post oral care with supervision per Aspiration Risk Hydration Protocol (ARHP)
(4) Non-oral meds as able. If necessary to give P.O., attempt with small amount of puree (caution as pt may attempt to bite spoon)
(5) PHYSICAL THERAPY MANAGER to continue to follow
--- NOTE | 2024-05-24 09:37 | PN.CDI ---
CDI
- -
CDI:
Physician Documentation Request
Admit Date: 05/20/24 14:10
Dear Doctor Jojo,
Clinical Indicators:
Patient admitted with alcohol withdrawal.
12/2 PN, 'Acute hypoxemic respiratory failure likely due to aspiration pneumonia'
WBC/Lactic acid:
05/21/24
20:23
WBC 15.3 H
Lactic Acid 2.5 H
Temp
05/21/24
19:47
Temp 100.9 F H
HR/RR trend:
05/21/24
19:00 05/21/24
20:00 05/21/24
21:00
Pulse 133 134 119
Resp Rate 27 29 28
05/21/24
22:00 05/21/24
23:00
Pulse 115 115
Resp Rate 34 31
Please clarify which of the following most accurately describes the status of the patient's infection:
Sepsis
- Systemic manifestations of infection, with 2 or more SIRS criteria which include:
- Fever >100.4 degrees F or hypothermia < 96.8 degrees F
- Leukocytosis - WBC > 12,000 or leukopenia - WBC < 4,000 or > 10% bands
- Tachycardia > 90 beats per minute
- Tachypnea - RR > 20 breaths per minute or PaCO2 , 32mmHg
Source: Merck Manual 2013
Severe Sepsis with acute hypoxic respiratory failure
Aspiration Pneumonia Only, Without Systemic Illness
Other
Use of terms such as suspected, likely, concern for, or probable (associated with a specific diagnosis that is being evaluated, monitored, or treated as if it exists) are acceptable and can be coded in the inpatient setting, when documented at the
time of discharge.
Thank you,
Leni Yañez RN BSN
CDI Specialist
available via tiger text
Please use your independent medical judgment in providing your response.
[2024-05-24 11:53] LABS: Glucose - Point of Care 168 mg/dl (70-99)
--- NOTE | 2024-05-24 12:00 | PTCARENOTE ---
administered subutex per COWS prn order and patient became much more somnolent thereafter. Will keep NPO unless patient has sustained arousability.
--- NOTE | 2024-05-24 12:19 | W.PN.HOSP.TC ---
Addendum entered and electronically signed by Willian Quezada MD 05/24/24 14:37:
Physical Exam
NAD, resting comfortably in bed
On Precedex and NC
Scleral anicteric
Moist mucous membranes
No JVD
CTA bilateral
Normal S1-S2 no murmurs
Soft nontender nondistended bowel sounds active
No peripheral pitting edema
Assessment and Plan
Alcohol use disorder with withdrawal
-Thiamine
-Folate
-Precedex wean as tolerated
-Continue msas
Acute hypoxemic respiratory failure likely due to aspiration pneumonia
-CLD
-Unasyn
-Pulmonary following for BiPAP at bedtime while on Precedex
Chronic opioid use disorder
-COWS
-As needed Suboxone
-UDS positive for fentanyl
Thrombocytopenia
-Likely related to toxic effects of alcohol on marrow
-4 T-score intermediate
-HIT panel negative
-Resume LMWH
Paroxysmal atrial fibrillation with RVR, now resolved
-On Precedex which can cause bradycardia therefore hold initiating rate controlling agents as in sinus rhythm and autoconverted
-2D echocardiogram
-Low-dose beta-rhonda
Electrolyte abnormalities
-Replete as needed
Diabetes type 2
-A1c 8.7
-Continue long and short acting insulin
-SSI
-Carb controlled diet when able to eat
-Goal blood glucose 1 40-1 80
Original Note:
Today's Communication/Plan
-
Continue clear liquid diet
Continue MSAS with phenobarb taper/Ativan as needed
Continue to hold Lovenox
Wean FiO2 as tolerated
Wean Precedex as tolerated
COWS & Subutex SL as needed
Continue Unasyn
Downgrade once off Precedex
Assessment / Plan
Assessment / Plan
HPI: Pt sent for etoh w/d and possible seizure activity. Patient was fatigued and has poor recollection of events. Admits to using heroin but 'hasnt used in a while'. Had an episode of A-fib last night
A/P:
# ETOH w/d / AUD
- 4 pints whiskey daily
- upgraded to ICU on 05/21
- Precedex was able to be weaned from 0.6 to 0.3 this morning
- Cont MSAS protocol with PRN benzos/ phenobarb taper
- Advised to quit
- c/s CM/BCARES
# Acute hypoxic respiratory failure possibly due to aspiration pneumonia
- NPO for now, receiving 1 lit N/S q10h @ 100 cc/h
- Unasyn (day 4)
- Appreciate pulm-BiPAP HS for sleep apnea
- Weaned off FiO2 to 4 lit
# Chronic opioid use disorder
- uses heroin every other day
- COWS
- suboxone SL PRN when able
- c/s CM/BCARES
- UDS reviewed. Positive for fentanyl
#Drop in platelet count
- 4 T-score=14% (translating to intermediate risk); Lovenox on hold since 05/23
- Platelet count trending up after holding Lovenox
- Continue with SCD for DVT prophylaxis
- Cont to monitor CBC
- Checked coagulation panel, hepatitis panel- normal
- HIT panel pending
- abdominal ultrasound (05/23): Some apparent heterogeneity of the hepatic echotexture with mildly irregular hepatic capsular contour, suspicious for cirrhosis. There is very small volume perihepatic ascites.
# Tachycardia
- Paroxysmal A-fib with RVR on twelve-lead EKG (05/22)-now resolved
- Sinus tachycardia with occasional PVCs this AM
- TSH within normal limits
- 2D-echo: Normal regional wall motion. Top normal left ventricular wall thickness. Left ventricular ejection fraction is 65-70%. No significant valvular disease.
- Continue Lopressor 5 every 6 hours as needed to keep HR <110
# Hypomagnesemia and hypokalemia
- Replete as needed
# History of DMII
- A1C 8.7%, noncompliant
- Insulin was started with Lantus 12 units HS, currently 6 units HS
- Diet advanced to clear liquids yesterday evening-continue with clear liquids
- Blood sugars currently controlled with SSI and Lantus
Patient can be downgraded to IMU/tele once off Precedex.
CODE STATUS: full code
Anticipated Discharge: 24 - 48 hours
Subjective/Interval History
-
Date of Service: May 24, 2024
Objective Data
-
Labs:
Laboratory Results
05/24/24
03:23
WBC 5.3
Hgb 10.4 L
Hct 30.9 L
Plt Count 73 L D
PT 19.9 H
INR 1.67
Sodium 147 H
Potassium 3.5
Chloride 115 H
Carbon Dioxide 24
BUN 22 H
Creatinine 0.5 L
Glucose 154 H
Calcium 7.3 L
Vital Signs:
Vital Signs
Temp Pulse Resp BP Pulse Ox
97.9 F 90 14 145/90 95
05/24/24 11:58 05/24/24 10:00 05/24/24 10:00 05/24/24 10:00 05/24/24 10:00
I&O
05/23/24 05/24/24 05/25/24
06:59 06:59 06:59
Intake Total 2947.1 / 3052.5 3688.4 / 3863.2 702.0 / 702.0
Output Total 835 / 860 705 / 745 40 / 40
Balance 2112.1 / 2192.5 2983.4 / 3118.2 662.0 / 662.0
Review of Systems
-
Unable to obtain full review of systems at this time due to: Acuity (Patient is sedated and not fully oriented)
Physical Exam
-
HEENT: Normocephalic, Anicteric and Oxygen (On 4 L O2)
Respiratory: Clear to Auscultation
Cardiac: Regular Rhythm and S1/S2
GI: Soft, Nontender, Nondistended and Normal Bowel Sounds
Genito-urinary: Kimble (Draining zaheer urine)
Musculoskeletal: No Clubbing, No Cyanosis and No Edema
Skin: Warm and Dry
Neuro: Tremors (Negative), Sedated (On 0.3 Precedex, arousable to verbal command, oriented to place and person but not time) and Slurred Speech
[2024-05-24] MEDS: NOVOLOG FLEXPEN-MODERATE RESISTANCE 1 UNITS SC (12:35)
[2024-05-24] MEDS: NSS (PRESERVATIVE FREE) 0.25 ML IV (13:18)
[2024-05-24] MEDS: ATIVAN 0.5 MG IV ×2 (13:18→16:55)
--- NOTE | 2024-05-24 13:43 | CM ---
CM following re: discharge planning.
Discussed in Rounds, reviewed pt's chart, met with pt. Per Rounds meeting, pt remains confused, calling out, know where he lives, does not know where he is.
Per HRSI specialist, she is working on Medicaid paperwork and pt livers in [place] and his insurance is in active.
Per pt's friend Pam, pt's car is at her house and pt will return back to her house at discharge.
Per GONZÁLEZ Hart, pt receives resources of D&A treatment programs, declined to participate in a process of securing inpatient or outpatient D&A treatment programs.
D/C plan: return to friend Pam altamirano with GONZÁLEZ to follow.
CM will follow with discharge plan updates as hospitalization progresses
[2024-05-24] MEDS: ZYPREXA 10 MG IM (15:32)
[2024-05-24] MEDS: STERILE WATER FOR INJECTION 2.1 ML IM (15:33)
[2024-05-24] MEDS: NSS IV (17:29)
--- NOTE | 2024-05-24 17:34 | PTCARENOTE ---
Prn hydralazine given again for SBP >160. Patient continues to be confused, but at times is oriented to [facility]. Did ask if we would administer more ativan. Only gave 0.5mg of ativan x2 today with the IM zyprexa as charted in AUG.
Patient is confused but has remained out of restraints. bed position remains in lowest setting and alarm exit on.
[2024-05-24 17:35] LABS: Glucose - Point of Care 147 mg/dl (70-99)
[2024-05-24] MEDS: LOPRESSOR 5 MG IV ×2 (17:50→22:43)
[2024-05-24] MEDS: ZOFRAN 4 MG IV (18:52)
--- NOTE | 2024-05-24 20:00 | PTCARENOTE ---
Received patient oriented to self and place, following commands, ARCHIBALD, forgetful. Bed alarm on, MSAS and COWs ongoing. Heart rate irregular, afib/sinus tach 100s-130s. BP hypertensive, 140s-150s/90s/100s. Normothermic, SCDs on, +2 generalized
anasarca. 97% on 3 liters, lung sounds diminished. Smear of a BM, cleaned up. Abdomen soft, hypoactive bowel sounds. Kimble in place draining zaheer/yellow urine. Skin flushed, diaphoretic. PIVs patent, WNL. NSS gtt ongoing per order. Repositioned,
hourly rounding and patient safety checks ongoing.
[2024-05-24] MEDS: LANTUS 0.06 UNITS SC (21:23)
[2024-05-24 23:37] LABS: Glucose - Point of Care 146 mg/dl (70-99)
[2024-05-25] VITALS (27 sets, daily range): BP systolic 108–170; BP diastolic 72–116; PULSE 108–115; BMI 26.3
--- NOTE | 2024-05-25 00:24 | PTCARENOTE ---
Patient had another BM, cleaned up. Complete bed change, CHG bath done. PRN hydralazine and metoprolol given per parameters. Repositioned, warm blankets provided. Otherwise patient assessment unchanged from previous.
[2024-05-25] MEDS: NSS (PRESERVATIVE FREE) 0.5 ML IV (01:11)
[2024-05-25] MEDS: ATIVAN 1 MG IV ×3 (01:11→15:47)
[2024-05-25] MEDS: ZANAFLEX 2 MG PO (01:29)
[2024-05-25] MEDS: APRESOLINE 10 MG IV ×2 (02:09→20:07)
[2024-05-25] MEDS: NSS 1000 IV (03:23)
[2024-05-25] MEDS: UNASYN IV ×4 (03:23→21:50)
[2024-05-25 03:58] LABS: Hemoglobin 10.4 g/dL (13.0-18.0); Mean Corp Hgb Conc. 33.5 g/dL (33.0-37.0); Mean Corpuscular Volume 95.4 fL (80.0-94.0); Platelet Count 103 10^3/uL (130-400); Red Blood Cell Count 3.25 10^6/uL (4.70-6.10); Red Cell Dist. Width 13.8 % (11.5-14.5); White Blood Cell Count 9.7 10^3/uL (4.8-10.8)
--- NOTE | 2024-05-25 04:01 | PTCARENOTE ---
Patient had another BM, received zanaflex for agitation. Patient continues to try to get out of bed, throwing legs over the side rail, not redirectable. 4 point restraints applied. Ativan given per MSAS. Otherwise patient assessment unchanged from
previous, hourly rounding and patient safety checks ongoing.
[2024-05-25 04:20] LABS: ALT (SGPT) 18 U/L (0-50); AST (SGOT) 27 U/L (17-59); Albumin 2.5 g/dl (3.5-5.0); Alkaline Phosphatase 136 U/L (38-126); Blood Urea Nitrogen 20 mg/dl (9-20); Calcium 7.9 mg/dl (8.4-10.2); Carbon Dioxide 21 mmol/L (22-30); Chloride 114 mmol/L (98-107); Estimated Creatinine Clearance > 125 ml/min; Glucose 141 mg/dl (70-99); Magnesium 1.9 mg/dl (1.6-2.3); Potassium 3.6 mmol/L (3.5-5.1); Sodium 145 mmol/L (135-145); Total Bilirubin 0.5 mg/dl (0.2-1.3); Total Protein 5.4 g/dl (6.3-8.2); eGFR > 60.00
[2024-05-25] MEDS: LOPRESSOR 5 MG IV ×3 (05:28→23:39)
[2024-05-25] MEDS: NOVOLOG FLEXPEN-MODERATE RESISTANCE SC ×4 (05:36→23:39)
[2024-05-25 05:44] LABS: Glucose - Point of Care 127 mg/dl (70-99)
[2024-05-25] MEDS: HEPARIN 5000 UNITS SC (08:16)
[2024-05-25] MEDS: FOLVITE 1 MG PO (08:16)
[2024-05-25] MEDS: LUMINAL 32.4 MG PO ×3 (08:16→21:49)
[2024-05-25] MEDS: VITAMIN B1 100 MG PO ×2 (08:16→20:08)
[2024-05-25] MEDS: ATIVAN 0.5 MG IV ×2 (08:24→10:33)
--- NOTE | 2024-05-25 08:27 | W.PN.INTV ---
Today's Communication / Plan
Recommendations
Precedex off since yesterday evening - keep off
Continue COWS with subutex; supportive care for opioid WD symptoms
Aspiration precautions
PT now that he is more awake and can participate
Diet as per PROGRAM DIRECTOR/TRAFFIC DIRECTOR
Phenobarbital taper
MSAS with ativan; hold for sedation
Antibiotics for RLL/RML pneumonia due to aspiration
Supportive care
Patient is stable for downgrade out of ICU to IMU level of care. He has been off Precedex since evening of 05/24/2024 and does not have any indication for resuming this at this time. Mold Unloader/Pulmonary service will now sign off. Please
re-consult us if there are any additional questions or concerns.
Assessment
-
Patient is a 63-year-old male with previous history of alcohol use disorder, heroin abuse on Subutex presenting to ER with change in mental status. He was reportedly found at his friend's house, not acting his usual self. Last alcohol use was
reportedly day prior to admission. On arrival to ER he appeared disheveled, had vomit next to his mouth and is not oriented to time or place. He has a history of extensive alcoholism and heroin use, has been to rehab in the past but has signed out
AMA. Was admitted on 05/20/2024 and placed on alcohol withdrawal protocol. Overnight developed worsening agitation requiring Precedex and therefore transferred to ICU.
Impression:
Acute ETOH w/d on phenobarb, MSAS, precedex --> now off precedex gtt since 05/24/2024
Suspect comorbid opiate w/d as well
N/V, with possible aspiration PNA in the RLL/RML
Acute hypoxic resp failure on 15L O2
Obstructive apneas/witnessed
Polysubstance abuse UDS + fentanyl, benzos
Leukocytosis, resolved
Anemia, multifactorial
Thrombocytopenia - improving
Hyperkalemia - resolved
Hyperglycemia
Lactic acidosis - resolved as of 05/22/2024
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
Chronic ETOH use
Chronic heroine abuse on Subutex
Diabetes, A1C 8.7%
Noncompliance
Plan
Patient has markedly improved and is much more awake and alert today, answering my questions appropriately and is calm, and off Precedex since 05/24/2024
Continue with MSAS with prn ativan and phenobarbital taper
Continue Subutex, holding for sedation
Continue COWS
Psychiatric history noted above including ETOH and opiate abuse
Eventual psych consult
Hemodynamically stable, not requiring pressors.
Cardiac history reviewed--none, known
No prior ECHO for review
Monitor on telemetry
Oxygen needs: placed on 15L for presumed aspiration event, hypoxemia began post vomiting --> this AM he is on 2L/min and saturating well at 96%
prn BiPAP as long as not an aspiration risk, otherwise can use HFNC
Prior history of lung disease: none
Supplemental O2 as indicated to maintain sats > 89%
CXR reviewed from 05/22/2024 showing RLL/RML pneumonia likely due to aspiration from vomiting
Has concerns for RML aspiration --> continue Unasyn, and would complete 5-7 days assuming he remains afebrile and continues to clinically prove for the last 48 hours prior to stopping antibiotics
Follow fever trend, WBC count
Diet as per PROGRAM DIRECTOR/TRAFFIC DIRECTOR
Network Engineer Administrator recommendations
Aspiration precautions, HOB > 30 degrees
PT now that he is more awake
Creat at baseline, no history of renal disease
Follow urine output, I/O
Keep K>4, Mg>2
CBC reviewed, coagulopathy likely present due to liver/ETOH dx
Abdominal ultrasound performed on 05/23/2024 showing heterogeneity of the hepatic echotexture with mildly irregular hepatic capsular contour, suspicious for cirrhosis
Transfuse to keep platelets >20k, and transfuse to keep Hb >7
INR WNL
Goal BG 140-180 with ISS q6hr with lantus
HbA1c: 8.7 on 05/20/2024
DVT ppx: Start LMWH
Patient is stable for downgrade out of ICU to IMU level of care. He has been off Precedex since evening of 05/24/2024 and does not have any indication for resuming this at this time. Once he is transferred to IMU, Mold Unloader/Pulmonary service will
sign off. Thank you for allowing us to be involved in care of the patient and please reconsult us if there are any additional questions or concerns.
Diagnostic Data
Chest X-Ray: 05/21/24- Low lung volumes with mild right basilar subsegmental atelectasis.
05/21/24 No focal parenchymal opacification to suggest pneumonia.
CT Scan: HCT 05/20/24- No acute intracranial abnormality. Paranasal sinus disease within the right maxillary sinus and ethmoid air cells.
Reports and relevant images were personally reviewed.
-----
Total time spent today was 58 minutes for this encounter. Time includes reviewing laboratory test/imaging results, reviewing pertinent medical records, obtaining and reviewing medical history, performing an appropriate exam, ordering medications,
tests and procedures. Time also includes documentation of this encounter, coordinating patient care and communicating with other healthcare professionals. Total time does not include separately billed tests performed on this date of service.
Subjective Dataa
Subjective Data
Date of Service:
Date of Service: May 25, 2024
Chief Complaint: Mold Unloader Follow Up
Subjective:
Pt seen and evaluated this AM. Awake and communicating this AM; confused to place and situation; worked with PT this AM. Off precedex gtt since yesterday evening at 1900. Patient's friend, Hedy, and brother, Ronald, at bedside and all questions
were answered. Patient has hiccups this morning. Denies shortness of breath, chest pain, SUAREZ, nausea, fevers or chills.
Review of Systems
General: Other (Negative unless mentioned above)
Objective Data
Data Reviewed
Vital Signs / I&O / Oxygen:
Vital Signs
Temp Pulse Resp BP Pulse Ox
98.3 F 123 21 168/93 95
05/25/24 07:49 05/25/24 09:00 05/25/24 09:00 05/25/24 09:00 05/25/24 09:00
Intake and Output
05/24/24 05/25/24 05/26/24
06:59 06:59 06:59
Intake Total 3688.4 / 3863.2 2962.0 / 3062.0 300 / 300
Output Total 705 / 735 640 / 665 80 / 80
Balance 2983.4 / 3128.2 2322.0 / 2397.0 220 / 220
SaO2 95
Nasal Cannula flow liters per 2
minute
Physical Exam
General: Respiratory Distress (negative), Comfortable, Chills (negative) and Sweats (negative)
HEENT: Normocephalic and Anicteric
Cardiovascular: S1-S2, Peripheral Edema (negative) and Other (Tachycardic)
Respiratory: Clear, Wheeze (negative), Crackles (negative), Rhonchi (negative), Non-Labored Respirations and Other (Diminished breath sounds bilaterally)
GI: Soft, Non Distended, Non Tender and Normal Bowel Sounds
Neurology: Awake, Alert (Although sleepy at times) and Tremors (negative)
Skin: Warm, Dry, Jaundice (negative) and Rash (negative)
Labs/Micro/Reports
Lab Data
05/25/24 03:39
05/25/24 03:39
Microbiology
05/21/24 20:23 Blood/Venous Blood Culture - Preliminary
No Growth in 72 hours- Final report to follow
05/21/24 20:24 Blood/Venous Blood Culture - Preliminary
No Growth in 72 hours- Final report to follow
05/22/24 00:35 Urine Urine Culture - Final
NO GROWTH
[2024-05-25] MEDS: ELIQUIS 5 MG PO (09:50)
[2024-05-25] MEDS: LOPRESSOR 12.5 MG PO (09:50)
--- NOTE | 2024-05-25 10:55 | PTOTSP ---
Dysphagia Therapy
Patient presents with at least mild oral stage dysphagia related to acute alcohol withdrawal syndrome. Patient at risk for fluctuations in swallowing function given admitting dx and medication treatments. PO only when awake/alert/calm. D/C oral
intake if worsened dysphagia/aspiration noted.
Recommend:
1. IDDSI Level 4 Puree, Thin Liquids
2. Medications - as best tolerated
3. Full supervision/assist
4. Strategies: PO only when awake/alert/calm, small single sips/bites, slow rate, ensure patient swallows/clears mouth before next sip/bite
5. Dysphagia therapy at the acute care level to assess if appropriate to continue and/or advance oral diet
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
[2024-05-25] MEDS: SUBUTEX 4 MG SL (12:20)
[2024-05-25] MEDS: ZESTRIL 5 MG PO (12:20)
[2024-05-25 12:35] LABS: Glucose - Point of Care 113 mg/dl (70-99)
--- NOTE | 2024-05-25 13:08 | W.PN.HOSP.TC ---
Addendum entered and electronically signed by Willian Quezada MD 05/25/24 17:38:
Assessment and Plan
Alcohol use disorder with withdrawal
-Thiamine
-Folate
-Continue msas
Severe sepsis with acute hypoxemic respiratory failure likely due to aspiration pneumonia
-CLD
-Unasyn x5days
-Wean o2 as toelrated
Chronic opioid use disorder
-COWS
-As needed Suboxone
-UDS positive for fentanyl
Thrombocytopenia
-Likely related to toxic effects of alcohol on marrow
-4 T-score intermediate
-HIT panel negative
-Resume LMWH
Paroxysmal atrial fibrillation
-Ekg reviewed
-not present
-on tele sr with pac's
Electrolyte abnormalities
-Replete as needed
Diabetes type 2
-A1c 8.7
-Continue long and short acting insulin
-SSI
-Carb controlled diet when able to eat
-Goal blood glucose 1 40-1 80
Original Note:
Today's Communication/Plan
-
Speech eval cleared for purees and thin liquids if alert and awake
Off Precedex-can be downgraded to IMU
Restart Lovenox
Lisinopril for BP control
Rest of care as before
Assessment / Plan
Assessment / Plan
HPI: Pt sent for etoh w/d and possible seizure activity. Patient was fatigued and has poor recollection of events. Admits to using heroin but 'hasnt used in a while'. Had an episode of A-fib last night
A/P:
# ETOH w/d / AUD
- 4 pints whiskey daily
- upgraded to ICU on 05/21
- Off precedex today
- Cont MSAS protocol with PRN benzos/ phenobarb taper
- BCARES
- Case management involved-plan is to discharge patient to home once stable for discharge
- Advised to quit
# Sepsis with acute hypoxic respiratory failure possibly due to aspiration pneumonia
- NPO, receiving 1 lit N/S q10h @ 100 cc/h
- Unasyn (day 4)- last dose 05/26 @ 1600
- Appreciate pulm-BiPAP HS as needed for sleep apnea
- Weaned off FiO2-saturating well on RA
# Chronic opioid use disorder
- uses heroin every other day
- COWS
- suboxone SL PRN per protocol
- c/s CM/BCARES
- UDS positive for fentanyl
#Drop in platelet count
- 4 T-score=14% (translating to intermediate risk); Lovenox on hold from 05/23 to 05/25
- Platelet count trending up-Can restart Lovenox today
- Cont to monitor CBC
- Checked coagulation panel, hepatitis panel- normal
- HIT panel neg
- abdominal ultrasound (05/23): Some apparent heterogeneity of the hepatic echotexture with mildly irregular hepatic capsular contour, suspicious for cirrhosis. There is very small volume perihepatic ascites.
# Tachycardia
- Paroxysmal A-fib with RVR on twelve-lead EKG (05/22)-now resolved
- Sinus arrhythmia on tele this AM
- TSH within normal limits
- 2D-echo: Normal regional wall motion. Top normal left ventricular wall thickness. Left ventricular ejection fraction is 65-70%. No significant valvular disease.
- Continue Lopressor 5 every 6 hours as needed to keep HR <110
# Hypomagnesemia and hypokalemia
- Resolved
- Replete if needed
# History of DMII
- A1C 8.7%, noncompliant
- Started with Lantus 12 units HS, currently 6 units HS
- Speech evaluation-may advance diet to puree and thin liquid if awake and alert
- Blood sugars currently controlled with SSI and Lantus
Patient can be downgraded to IMU once off Precedex.
CODE STATUS: full code
Anticipated Discharge: 24 - 48 hours
Subjective/Interval History
-
Date of Service: May 25, 2024
Patient mental status has improved compared to yesterday. Is awake and oriented to place, person but not time. Still has hiccups. Denies any chest pain or shortness of breath. Frequent loose bowel movements overnight.
No nausea or vomiting.
Objective Data
-
Labs:
Laboratory Results
05/25/24
03:39
WBC 9.7
Hgb 10.4 L
Hct 31.0 L
Plt Count 103 L D
Sodium 145
Potassium 3.6
Chloride 114 H
Carbon Dioxide 21 L
BUN 20
Creatinine 0.5 L
Glucose 141 H
Calcium 7.9 L
Total Bilirubin 0.5
AST 27
ALT 18
Alkaline Phosphatase 136 H
Vital Signs:
Vital Signs
Temp Pulse Resp BP Pulse Ox
98.3 F 115 21 157/116 95
05/25/24 07:49 05/25/24 12:20 05/25/24 09:00 05/25/24 12:20 05/25/24 09:00
I&O
05/24/24 05/25/24 05/26/24
06:59 06:59 06:59
Intake Total 3688.4 / 3863.2 2962.0 / 3062.0 720 / 720
Output Total 705 / 735 640 / 665 210 / 210
Balance 2983.4 / 3128.2 2322.0 / 2397.0 510 / 510
Review of Systems
-
History Source: Patient
All other systems: Reviewed and negative
Physical Exam
-
HEENT: Normocephalic, Moist Mucous Membranes and Anicteric
Respiratory: Clear to Auscultation
Cardiac: Regular Rhythm and S1/S2
GI: Soft, Nontender, Nondistended and Normal Bowel Sounds
Genito-urinary: Kimble (Draining zaheer urine)
Musculoskeletal: No Clubbing, No Cyanosis and No Edema
Skin: Warm and Dry
Neuro: Tremors (Negative)
Psych: Calm
[2024-05-25] MEDS: THORAZINE 51 MG IV (14:17)
[2024-05-25] MEDS: LOVENOX 40 MG SC (18:08)
[2024-05-25 18:10] LABS: Glucose - Point of Care 109 mg/dl (70-99)
--- NOTE | 2024-05-25 20:00 | PTCARENOTE ---
Received patient oriented to self, drowsy, forgetful. Follows commands, denies pain, ARCHIBALD. PERRLA 2 mm, sluggish, MSAS and COWS ongoing. Afib 120S-160s, MD aware. BP stable, palpable pedal and radial pulses b/l. On 2 liters nasal cannula, saturating
96%, lung sounds diminished. Large BM, cleaned up, sheets changed. PIVs patent, WNL. NSS gtt ongoing. Hourly rounding and patient safety checks ongoing.
[2024-05-25] MEDS: LANTUS 0.06 UNITS SC (21:50)
[2024-05-25 21:57] LABS: Glucose - Point of Care 119 mg/dl (70-99)
[2024-05-26] VITALS (19 sets, daily range): BP systolic 122–176; BP diastolic 62–109; BMI 26.6
[2024-05-26] MEDS: UNASYN IV ×3 (04:47→15:42)
--- NOTE | 2024-05-26 04:51 | PTCARENOTE ---
Patient has had 3 very large bowel movements, soft/liquid. CHG bath x2, full bed bath with towels, soap, and warm water. Full sheet change, restraints changed, EKG leads changed. Patient now resting comfortably. Hourly rounding and patient safety
checks ongoing.
[2024-05-26] MEDS: NOVOLOG FLEXPEN-MODERATE RESISTANCE SC (04:53)
[2024-05-26 05:04] LABS: Hematocrit 31.8 % (39.0-52.0); Hemoglobin 10.2 g/dL (13.0-18.0); Mean Corp Hgb Conc. 32.1 g/dL (33.0-37.0); Mean Corpuscular Hgb 31.7 pg (27.0-31.0); Mean Corpuscular Volume 98.8 fL (80.0-94.0); Mean Platelet Volume 9.6 fL (7.4-10.4); Platelet Count 111 10^3/uL (130-400); Red Blood Cell Count 3.22 10^6/uL (4.70-6.10); Red Cell Dist. Width 13.9 % (11.5-14.5); White Blood Cell Count 4.8 10^3/uL (4.8-10.8)
[2024-05-26 05:25] LABS: ALT (SGPT) 15 U/L (0-50); AST (SGOT) 21 U/L (17-59); Albumin 2.3 g/dl (3.5-5.0); Alkaline Phosphatase 123 U/L (38-126); Blood Urea Nitrogen 19 mg/dl (9-20); Calcium 7.8 mg/dl (8.4-10.2); Carbon Dioxide 17 mmol/L (22-30); Chloride 116 mmol/L (98-107); Estimated Creatinine Clearance > 125 ml/min; Glucose 123 mg/dl (70-99); Magnesium 1.9 mg/dl (1.6-2.3); Potassium 3.2 mmol/L (3.5-5.1); Sodium 146 mmol/L (135-145); Total Bilirubin 0.3 mg/dl (0.2-1.3); eGFR > 60.00
[2024-05-26] MEDS: KCL 270 MEQ IV (06:28)
[2024-05-26 08:07] LABS: Glucose - Point of Care 116 mg/dl (70-99)
--- NOTE | 2024-05-26 08:08 | PTCARENOTE ---
0700 assumed care. pt in bed. on 2L of oxygen via nasal canula. 4 point restraints
Awake and oriented to person, place and time, drowsy RASSS -1;
Sinus arrhythmia HR 124 RR 13; BP 163/89 . S1/S2 no murmur ; BL/UE +3 edema. will elevated arms on pillows No edema to b/L LE pedal pulses present
Lungs diminished, 95%RA. occasional non-productive cough
Abdomen soft non tender. Diarrhea during previous shift . No N/V on clear liquid diet
Bladder scanned 185
Skin: +3 edema to b/l UE. left arm redness from hand to elbow anterior. Distal arm large purple
Restraints taking off. will order bedsitter ;
--- NOTE | 2024-05-26 08:30 | W.PN.HOSP.TC ---
Addendum entered and electronically signed by Amilcar Uribe MD, Resident 05/27/24 18:46:
Response to CDI:
Hypernatremia:
Abnormal lab value, clinically insignificant
Addendum entered and electronically signed by Willian Quezada MD 05/26/24 14:38:
Assessment and Plan
Alcohol use disorder with withdrawal
-Thiamine
-Folate
-Continue msas
Severe sepsis with acute hypoxemic respiratory failure likely due to aspiration pneumonia
-Advance diet as tolerated
-Unasyn x5days
-Wean o2 as toelrated
Chronic opioid use disorder
-COWS
-As needed Suboxone
-UDS positive for fentanyl
Thrombocytopenia
-Likely related to toxic effects of alcohol on marrow
-4 T-score intermediate
-HIT panel negative
-Resume LMWH
Paroxysmal atrial fibrillation
-Ekg reviewed
-not present
-on tele sr with pac's
Electrolyte abnormalities
-Replete as needed
Diabetes type 2
-A1c 8.7
-Continue long and short acting insulin
-SSI
-Carb controlled diet when able to eat
-Goal blood glucose 140-180
Original Note:
Today's Communication/Plan
-
Continue COWS and Subutex as needed
Continue MSAS with Ativan and phenobarb taper
Replete potassium
May advance diet to regular (carb controlled) with aspiration precautions
Loperamide
Continue telemonitoring
Assessment / Plan
Assessment / Plan
63-year-old male with past medical history of chronic alcohol use disorder and chronic opioid use disorder who was brought to the ED with suspicious seizure activities, vomiting and shakiness morning after Thanksgiving.
# ETOH w/d /alcohol use disorder
- 4 pints whiskey daily
- Off precedex since evening of 05/24
- Downgraded from ICU to IMU on 05/25
- Remains confused but calm
- Cont MSAS protocol with PRN benzos/ phenobarb taper
- BCARES
- Case management involved-OT PT recommends discharge to SNF
- Advised to quit
# Sepsis POA with acute hypoxic respiratory failure possibly due to aspiration pneumonia
- Aspiration precautions
- Unasyn (day 5)- last dose 05/26 @ 1600
- Appreciate pulm-supplemental O2 HS as needed for sleep apnea
- Weaned off FiO2-saturating well on RA during daytime
# Chronic opioid use disorder
- Continue COWS
- suboxone SL PRN per protocol
- Multiple large loose bowel movements during the past day-Kimble DC'd
- c/s CM/BCARES
- UDS positive for fentanyl
#Drop in platelet count
- 4 T-score=14% (translating to intermediate risk); Lovenox on hold on 05/23 & 05/24
- Platelet count trending up-Lovenox HS restarted on 05/25
- Cont to monitor CBC
- Checked coagulation panel, hepatitis panel- normal
- HIT panel neg
- abdominal ultrasound (05/23): Some apparent heterogeneity of the hepatic echotexture with mildly irregular hepatic capsular contour, suspicious for cirrhosis. There is very small volume perihepatic ascites.
- Large area of ecchymosis seen on left arm around IV line-not tender or warmer compared to right arm, unlikely to be cellulitis
# Tachycardia
- Paroxysmal A-fib with RVR on twelve-lead EKG on 05/22-now resolved
- Sinus arrhythmia on tele this AM with frequent PVCs-max rate 163 overnight
- TSH within normal limits
- 2D-echo: Normal regional wall motion. Top normal left ventricular wall thickness. Left ventricular ejection fraction is 65-70%. No significant valvular disease.
- Continue Lopressor 5 every 6 hours as needed to keep HR <110
# Hypomagnesemia
-Resolved
-Replete if needed
# Hypokalemia
- Replete with KCl as needed
# History of DMII
- A1C 8.7%, noncompliant
- Bedside glucose monitoring
- Started with Lantus 12 units HS, currently 6 units HS
- Clear for clear liquids and purees per speech eval
- Blood sugars currently controlled with SSI and Lantus
CODE STATUS: full code
Anticipated Discharge: 24 - 48 hours
Subjective/Interval History
-
Date of Service: May 26, 2024
Patient had multiple large and loose bowel movements throughout the past day. Also has been persistently tachycardic. Able to tolerate clear liquids without any nausea or vomiting. Shyanne DUNCAN'd yesterday because of loose stools. This morning he is
confused. Does not know where he is, but does know the exact time of day. States he had a crab [place] last night and is looking for his dog in the room.
Objective Data
-
Labs:
Laboratory Results
05/26/24
04:45
WBC 4.8
Hgb 10.2 L
Hct 31.8 L
Plt Count 111 L
Sodium 146 H
Potassium 3.2 L
Chloride 116 H
Carbon Dioxide 17 L
BUN 19
Creatinine 0.6 L
Glucose 123 H
Calcium 7.8 L
Total Bilirubin 0.3
AST 21
ALT 15
Alkaline Phosphatase 123
Vital Signs:
Vital Signs
Temp Pulse Resp BP Pulse Ox
97.8 F 122 19 148/95 99
05/26/24 08:10 05/26/24 06:00 05/26/24 06:00 05/26/24 06:00 05/26/24 06:00
I&O
05/25/24 05/26/24 05/27/24
06:59 06:59 06:59
Intake Total 2962.0 / 3062.0 2727.5 / 2795.0 67.
Output Total 640 / 665 210 / 210
Balance 2322.0 / 2397.0 2517.5 / 2585.0 .
Review of Systems
-
History Source: Patient
All other systems: Reviewed and negative
Neuro: Reports Lightheadedness (When ambulating)
Physical Exam
-
HEENT: Normocephalic, Moist Mucous Membranes and Anicteric
Respiratory: Clear to Auscultation
Cardiac: S1/S2 and Irregular Rhythm
GI: Soft, Nontender, Nondistended and Normal Bowel Sounds
Musculoskeletal: No Clubbing, No Cyanosis and No Edema
Skin: Warm and Dry
Neuro: Awake, Alert, Oriented (Not oriented to place, oriented to person and time), Tremors (Negative) and Slurred Speech (Speech remains slightly slurred)
Psych: Calm and Confused
[2024-05-26] MEDS: LUMINAL 32.4 MG PO ×3 (09:15→22:21)
[2024-05-26] MEDS: VITAMIN B1 100 MG PO (09:15)
[2024-05-26] MEDS: FOLVITE 1 MG PO (09:15)
[2024-05-26] MEDS: ZESTRIL 5 MG PO (09:15)
[2024-05-26] MEDS: SUBUTEX 4 MG SL (09:16)
[2024-05-26] MEDS: LOPRESSOR 5 MG IV ×2 (11:34→18:35)
[2024-05-26] MEDS: NSS (PRESERVATIVE FREE) 1 ML IV (11:35)
[2024-05-26] MEDS: ATIVAN 0.5 MG IV ×3 (11:35→22:21)
[2024-05-26] MEDS: ZOFRAN 4 MG IV ×2 (12:10→18:35)
[2024-05-26 12:21] LABS: Glucose - Point of Care 169 mg/dl (70-99)
[2024-05-26] MEDS: NOVOLOG FLEXPEN-MODERATE RESISTANCE 1 UNITS SC (13:42)
--- NOTE | 2024-05-26 14:14 | PTCARENOTE ---
Transfer with walker x 2 people OOB chair x 3 hrs.
--- NOTE | 2024-05-26 15:00 | PTCARENOTE ---
Received pt awake and alert. He was fed a late lunch. Lungs dim in the bases. +4 upper extremity edema, with his hands to forearm bilaterally reddened. He denies pain in his extremities, He was instructed to perform fist pumps. Bilteral IV sites
flushed and patent. +BSX4. Shampoo cap provided. Safe environment maintained.
[2024-05-26] MEDS: APRESOLINE 10 MG IV ×2 (15:21→20:06)
--- NOTE | 2024-05-26 16:03 | PTCARENOTE ---
s/p late lunch tray. C/O severe heart burs associated with nausea abdominal pain and diaphoresis. Too soon for Zofran, no antacid prescribed. Dr. Gilda Quezada TT's this, awaiting response. Pt aware I have put a call into the physician.
[2024-05-26 16:41] LABS: Glucose - Point of Care 219 mg/dl (70-99)
[2024-05-26] MEDS: NOVOLOG FLEXPEN-MODERATE RESISTANCE 3 UNITS SC (16:57)
[2024-05-26] MEDS: REGLAN 5 MG PO (17:13)
[2024-05-26] MEDS: LOVENOX 40 MG SC (17:23)
--- NOTE | 2024-05-26 19:22 | PTCARENOTE ---
Pt c/o CP, burning and tight, unable to rate. EKG obtained before CP resolved, house provider made aware.
[2024-05-26] MEDS: NSS (PRESERVATIVE FREE) 8 ML IV (19:58)
[2024-05-26] MEDS: PEPCID 20 MG IV (19:58)
--- NOTE | 2024-05-26 20:20 | W.PN.UPDATE ---
Update Note
Progress Note Update
RN notified RN TRANSPORT, patient c/o chest pain, then stated its 'heart burn'. Patient seen and evaluated, Reports he is been having chest discomfort like heart burn at mid chest towards throat, non radiating neck, left arm, jaw, back or shoulder. Denies
shortness of breath other than the baseline. Reports it started after eating lunch and hasn't resolved. Noted belching, no other symptoms. VS and EKG noted. will order IV Pepcid.
patient reported IV Pepcid didn't help, asking for milk and Tums now. Tums ordered. Will order BMP, Mag and Trop due to frequent chest discomfort, less likely heart related.
EKG noted, Lab results noted. May need GI consult for Reflux disease if heart burn doesn't resolve. Alcoholic Esophagitis/ GERD likely due to alcohol consumption.
[2024-05-26 21:55] LABS: Glucose - Point of Care 236 mg/dl (70-99)
[2024-05-26] MEDS: VITAMIN B1 PO (22:09)
[2024-05-26] MEDS: LANTUS 0.06 UNITS SC (22:21)
[2024-05-26] MEDS: TUMS CHEWABLE TABLET 200 MG PO (22:22)
[2024-05-26 23:08] LABS: Troponin I 0.016 ng/ml
[2024-05-26 23:11] LABS: Blood Urea Nitrogen 21 mg/dl (9-20); Calcium 8.2 mg/dl (8.4-10.2); Carbon Dioxide 20 mmol/L (22-30); Chloride 114 mmol/L (98-107); Estimated Creatinine Clearance > 125 ml/min; Glucose 270 mg/dl (70-99); Magnesium 1.9 mg/dl (1.6-2.3); Potassium 3.5 mmol/L (3.5-5.1); Sodium 146 mmol/L (135-145); eGFR > 60.00
[2024-05-27] VITALS (14 sets, daily range): BP systolic 97–158; BP diastolic 68–106; PULSE 2–96; BMI 26.6
[2024-05-27] MEDS: APRESOLINE 10 MG IV ×3 (00:10→17:27)
[2024-05-27] MEDS: LOPRESSOR 5 MG IV ×3 (00:45→22:31)
[2024-05-27 04:55] LABS: Hematocrit 36.1 % (39.0-52.0); Mean Corp Hgb Conc. 33.2 g/dL (33.0-37.0); Mean Corpuscular Hgb 32.6 pg (27.0-31.0); Mean Corpuscular Volume 98.1 fL (80.0-94.0); Mean Platelet Volume 10.1 fL (7.4-10.4); Platelet Count 173 10^3/uL (130-400); Red Blood Cell Count 3.68 10^6/uL (4.70-6.10); Red Cell Dist. Width 13.9 % (11.5-14.5); White Blood Cell Count 7.1 10^3/uL (4.8-10.8)
[2024-05-27 05:04] LABS: ALT (SGPT) 17 U/L (0-50); AST (SGOT) 24 U/L (17-59); Albumin 2.4 g/dl (3.5-5.0); Alkaline Phosphatase 159 U/L (38-126); Blood Urea Nitrogen 20 mg/dl (9-20); Calcium 8.4 mg/dl (8.4-10.2); Carbon Dioxide 21 mmol/L (22-30); Chloride 114 mmol/L (98-107); Estimated Creatinine Clearance 108 ml/min; Glucose 227 mg/dl (70-99); Potassium 3.4 mmol/L (3.5-5.1); Sodium 145 mmol/L (135-145); Total Bilirubin 0.3 mg/dl (0.2-1.3); Total Protein 5.2 g/dl (6.3-8.2); eGFR > 60.00
--- NOTE | 2024-05-27 05:34 | PTCARENOTE ---
Pt with episodes of sleep apnea, desat to 62% on RA. placed on 2L NC while asleep.
[2024-05-27] MEDS: KCL 160 MEQ IV (06:36)
[2024-05-27 07:44] LABS: Glucose - Point of Care 178 mg/dl (70-99)
--- NOTE | 2024-05-27 07:52 | PTCARENOTE ---
PCT alerted RN of left arm leaking IVF with pt gown soaking wet. IV infiltrated. Removed IV. Bilateral upper extremities grossly swollen, + palpable radial pulses. Left posterior arm grossly ecchymotic. He is awake and alert, reporting hunger. Pt to
be assisted to the chair for breakfast.
[2024-05-27] MEDS: NOVOLOG FLEXPEN-MODERATE RESISTANCE 1 UNITS SC (08:14)
[2024-05-27] MEDS: ZESTRIL 5 MG PO (08:15)
[2024-05-27] MEDS: VITAMIN B1 100 MG PO ×2 (08:15→21:24)
[2024-05-27] MEDS: FOLVITE 1 MG PO (08:15)
[2024-05-27] MEDS: SUBUTEX 4 MG SL (08:16)
--- NOTE | 2024-05-27 09:24 | PTCARENOTE ---
Spoke with Raisa in Ultrasound regarding pt's U/E ultrasound order. She will contact the optics manufacturing technician by TT regarding his orders. SHe is aware that I need an IV access but U/S needs to be performed first.
[2024-05-27] MEDS: PROTONIX 40 MG PO (10:14)
[2024-05-27] MEDS: KCL ELIXIR 40 MEQ PO (10:14)
--- NOTE | 2024-05-27 11:01 | W.PN.HOSP.TC ---
Addendum entered and electronically signed by Willian Quezada MD 05/27/24 14:40:
superficial venous thrombosis (cephalic vein - left)
-will ask radiology data conversion developer the proximity of this thrombosis to the deep venous system.
-if close/extensive will proceed with AC (eliquis BID loading dose x7days followed by maintenance dose).
-if not close then will plan to hold off on initiating AC and proceed with supportive measures such as
--warm compresses, ice packing, elevation
Alcohol use disorder with withdrawal
-Thiamine
-Folate
-Continue msas
Severe sepsis with acute hypoxemic respiratory failure likely due to aspiration pneumonia
-Advance diet as tolerated
-Unasyn x5days
-Wean o2 as toelrated
Chronic opioid use disorder
-COWS
-As needed Suboxone
-UDS positive for fentanyl
Thrombocytopenia
-Likely related to toxic effects of alcohol on marrow
-4 T-score intermediate
-HIT panel negative
-Resume LMWH
Paroxysmal atrial fibrillation
-Ekg reviewed
-not present
-on tele sr with pac's
Electrolyte abnormalities
-Replete as needed
Diabetes type 2
-A1c 8.7
-Continue long and short acting insulin
-SSI
-Carb controlled diet when able to eat
-Goal blood glucose 140-180
Original Note:
Today's Communication/Plan
-
L Upper extremity ultrasound showed DVT-start Eliquis
Single dose Lasix
Replete potassium
Continue MSAS, COWS
Rest of care as before
Assessment / Plan
Assessment / Plan
63-year-old male with past medical history of chronic alcohol use disorder and chronic opioid use disorder who was brought to the ED with suspicious seizure activities, vomiting and shakiness morning after Thanksgiving.
# ETOH w/d /alcohol use disorder
- 4 pints whiskey daily
- Off precedex since evening of 05/24
- Downgraded from ICU to IMU on 05/25
- Mental status improving
- Cont MSAS protocol with PRN benzos/ phenobarb taper
- BCARES
- Case management involved-OT PT recommends discharge to SNF
- Advised to quit
# Sepsis POA with acute hypoxic respiratory failure possibly due to aspiration pneumonia
- Aspiration precautions
- Completed course of Unasyn
- Cont supplemental O2 HS as needed for sleep apnea
- Weaned off FiO2-saturating well on RA during daytime
- Chest x-ray this AM: pneumonia and/or atelectasis
# Chronic opioid use disorder
- Continue COWS
- suboxone SL per protocol
- Multiple large loose bowel movements during the past day-Kimble DC'd
- c/s CM/BCARES
- UDS positive for fentanyl
#Drop in platelet count
- 4 T-score=14% (translating to intermediate risk); Lovenox on hold on 05/23 & 05/24
- Platelet count trending up-Lovenox HS restarted on 05/25
- Cont to monitor CBC
- Checked coagulation panel, hepatitis panel- normal
- HIT panel neg
- abdominal ultrasound (05/23): Some apparent heterogeneity of the hepatic echotexture with mildly irregular hepatic capsular contour, suspicious for cirrhosis. There is very small volume perihepatic ascites.
- Large area of ecchymosis seen on left arm around IV line- stable
# Tachycardia
- Paroxysmal A-fib with RVR on twelve-lead EKG on 05/22-now resolved
- Sinus arrhythmia on tele this AM with frequent PACs-max rate 134 overnight
- TSH within normal limits
- 2D-echo: Normal regional wall motion. Top normal left ventricular wall thickness. Left ventricular ejection fraction is 65-70%. No significant valvular disease.
- Continue Lopressor 5 every 6 hours as needed to keep HR <110
# Hypomagnesemia
-Resolved
-Replete if needed
# Hypokalemia
- Replete with KCl as needed
# Chest pain/ heartburn
- patient c/o chest discomfort after lunch yesterday, no SOB
- EKG not suggestive of ischemia, Troponin level normal
- IV Pepcid and Tums given- slight improvement
# Left UE non-pitting edema
- not tender or warmer compared to right arm, unlikely to be cellulitis
- left UE U/S: Thrombus within the left cephalic vein throughout the upper arm-will start Eliquis 10 BID
#Labile BP
- Started lisinopril 5
- Hydralazine as needed
- Single dose Lasix for generalized edema
# History of DMII
- A1C 8.7%, noncompliant
- Bedside glucose monitoring
- Started with Lantus 12 units HS, currently 6 units HS
- clear liquids and purees per speech evaluation- Advanced to carb-controlled on 05/26
- Blood sugars currently controlled with SSI and Lantus
# DVT prophylaxis
- D/C Lovenox- will start Eliquis this pm
CODE STATUS: full code
Anticipated Discharge: Within 24 hours
Subjective/Interval History
-
Date of Service: May 27, 2024
Objective Data
-
Labs:
Laboratory Results
05/26/24 05/27/24
22:38 04:26
WBC 7.1
Hgb 12.0 L
Hct 36.1 L
Plt Count 173 D
Sodium 146 H 145
Potassium 3.5 3.4 L
Chloride 114 H 114 H
Carbon Dioxide 20 L 21 L
BUN 21 H 20
Creatinine 0.6 L 0.7
Glucose 270 H 227 H
Calcium 8.2 L 8.4
Total Bilirubin 0.3
AST 24
ALT 17
Alkaline Phosphatase 159 H
Vital Signs:
Vital Signs
Temp Pulse Resp BP Pulse Ox
97.6 F 105 17 144/79 97
05/27/24 07:55 05/27/24 10:00 05/27/24 10:00 05/27/24 10:00 05/27/24 10:00
I&O
05/26/24 05/27/24 05/28/24
06:59 06:59 06:59
Intake Total 2727.5 / 2795.0 1507.5 / 1507.5 240 / 240
Output Total 210 / 210 750 / 750
Balance 2517.5 / 2585.0 757.5 / 757.5 240 / 240
Review of Systems
-
History Source: Patient
All other systems: Reviewed and negative
Abdomen/GI: Reports GERD
Physical Exam
-
HEENT: Normocephalic, Moist Mucous Membranes and Anicteric
Respiratory: Crackles (left > right)
Cardiac: S1/S2 and Irregular Rhythm
GI: Soft, Nontender, Nondistended and Normal Bowel Sounds
Musculoskeletal: No Clubbing, No Cyanosis and Edema, Left Upper Extrem
Skin: Warm and Dry
Neuro: Awake, Alert, Tremors (Negative) and Slurred Speech (Speech remains slightly slurred)
[2024-05-27 12:15] LABS: Glucose - Point of Care 201 mg/dl (70-99)
[2024-05-27] MEDS: NOVOLOG FLEXPEN-MODERATE RESISTANCE 3 UNITS SC ×3 (12:24→22:30)
--- NOTE | 2024-05-27 13:32 | PN.CDI ---
CDI
- -
CDI:
Physician Documentation Request
Admit Date: 05/20/24 14:10
Dear Doctor Jojo,
Clinical Indicators:
Patient admitted with alcohol withdrawal.
Sodium trend:
05/23/24 05/24/24 05/26/24
04:29 03:23 04:45
Sodium 147 H 147 H 146 H
05/26/24
22:38
Sodium 146 H
Based on the above, could you clarify in the progress notes, the appropriate diagnosis, if significant, that supports the above abnormalities and additional evaluation, monitoring and/or treatment rendered:
Hypernatremia
Abnormal lab values, clinically insignificant
Other
Use of terms such as suspected, likely, concern for, or probable (associated with a specific diagnosis that is being evaluated, monitored, or treated as if it exists) are acceptable and can be coded in the inpatient setting, when documented at the
time of discharge.
Thank you,
Leni Yañez RN BSN
CDI Specialist
available via tiger text
Please use your independent medical judgment in providing your response.
[2024-05-27] MEDS: LASIX 20 MG IV (14:03)
--- NOTE | 2024-05-27 14:08 | CM ---
CM following re: discharge planning.
Reviewed pt's chart, met with pt and spoke to pt's friend Hedy to update on discharge plan progress.
PT and OT evaluation noted - SNF level of care recommended. Pt is dependent with ADL.
[facility]
CM spoke to pt's friend Hedy and she stated she went to [facility] and found out that as on 04/21/2024 pt's insurance in [place] is not active due to not submitting requested documentation. pt's friend Hedy stated she will go to
[facility] assistance office in [place] on Thursday to attempt to get pt on insurance again.
D/C plan: SNF who will accept the pt with Medicaid pending pay source. Hope pt's friend will help to reinstall pt's insurance in [place].
CM will follow with discharge plan updates as hospitalization progresses
[2024-05-27] MEDS: ELIQUIS 10 MG PO (14:25)
[2024-05-27 16:12] LABS: Hematocrit 34.9 % (39.0-52.0); Hemoglobin 11.8 g/dL (13.0-18.0); Mean Corp Hgb Conc. 33.8 g/dL (33.0-37.0); Mean Corpuscular Hgb 33.2 pg (27.0-31.0); Mean Corpuscular Volume 98.3 fL (80.0-94.0); Mean Platelet Volume 10.1 fL (7.4-10.4); Platelet Count 176 10^3/uL (130-400); Red Blood Cell Count 3.55 10^6/uL (4.70-6.10); Red Cell Dist. Width 14.1 % (11.5-14.5); White Blood Cell Count 7.4 10^3/uL (4.8-10.8)
[2024-05-27 16:13] LABS: Glucose - Point of Care 212 mg/dl (70-99)
[2024-05-27 16:23] LABS: APTT 77.7 Sec (23.4-35.0)
--- NOTE | 2024-05-27 21:00 | PTCARENOTE ---
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 ST HR low 100s-1teens. R midline WNL. POC discussed with pt. call valles in reach.
[2024-05-27] MEDS: LANTUS 0.06 UNITS SC (22:30)
[2024-05-27] MEDS: HEPARIN 25000 UNITS/250 ML IV (22:31)
[2024-05-27 22:40] LABS: Glucose - Point of Care 247 mg/dl (70-99)
--- NOTE | 2024-05-27 23:16 | PTCARENOTE ---
pt with episodes of desat to 60s while asleep, still desat after 4LNC applied, RT paged to try pt on Bipap.
[2024-05-28] VITALS (14 sets, daily range): BP systolic 118–176; BP diastolic 75–136; PULSE 123; O2SAT 96; BMI 28.0
[2024-05-28] MEDS: APRESOLINE 10 MG IV ×2 (06:02→23:04)
[2024-05-28 06:23] LABS: ALT (SGPT) 16 U/L (0-50); AST (SGOT) 25 U/L (17-59); Albumin 2.4 g/dl (3.5-5.0); Alkaline Phosphatase 160 U/L (38-126); Blood Urea Nitrogen 21 mg/dl (9-20); Calcium 8.4 mg/dl (8.4-10.2); Carbon Dioxide 24 mmol/L (22-30); Chloride 113 mmol/L (98-107); Estimated Creatinine Clearance 84 ml/min; Glucose 181 mg/dl (70-99); Sodium 141 mmol/L (135-145); Total Bilirubin 0.2 mg/dl (0.2-1.3); Total Protein 5.3 g/dl (6.3-8.2); eGFR > 60.00
[2024-05-28 06:25] LABS: APTT > 200 Sec (23.4-35.0)
[2024-05-28] MEDS: FLOMAX 0.4 MG PO (07:37)
[2024-05-28] MEDS: VITAMIN B1 100 MG PO ×2 (07:37→20:16)
[2024-05-28] MEDS: FOLVITE 1 MG PO (07:37)
[2024-05-28] MEDS: PROTONIX 40 MG PO (07:37)
[2024-05-28] MEDS: ZESTRIL 5 MG PO (07:37)
[2024-05-28] MEDS: SUBUTEX 4 MG SL (07:37)
--- NOTE | 2024-05-28 08:00 | PTCARENOTE ---
Received pt @ change of shift. Drowsy, awakens to verbal stim; oriented x2, required reorientation to plan; forgetful. MSAS/COWS maintained per protocol- see flow sheet. SR/ST/parox afib w PAC's/PVC's. +3 anasarca/UE edema. +radial/pedal pulses.
Weaned to RA, SpO2 97%, no s/s of resp distress. +BS, abd soft/round/obese. Cont/inc of b/b. Assisted x1 w RW OOB to chair for breakfast. Chair alarm active. Heparin gtt on hold per orders. R midline patent, dressing c/d/i. Instructed on how
to report care concerns and call valles w in reach.
[2024-05-28 11:55] LABS: Glucose - Point of Care 271 mg/dl (70-99)
[2024-05-28] MEDS: NOVOLOG FLEXPEN-MODERATE RESISTANCE 5 UNITS SC (12:38)
--- NOTE | 2024-05-28 14:01 | W.PN.HOSP.TC ---
Today's Communication/Plan
-
Assessment / Plan
Assessment / Plan
Physical Exam
NAD, resting comfortably in bed
Scleral anicteric
Moist mucous membranes
No JVD
CTA bilateral
Normal S1-S2 no murmurs tachycardic - irregular
Soft nontender nondistended bowel sounds active
BL worse on LUE SWelling then the right
No peripheral pitting edema
Moves extremities spontaneously
AAOx3
superficial venous thrombosis (cephalic vein - left)
-hep gtt for at least 48hours and then can consider dc ac or dc home with ac
--warm compresses, ice packing, elevation
Alcohol use disorder with withdrawal
-Thiamine
-Folate
-Continue msas
Severe sepsis with acute hypoxemic respiratory failure likely due to aspiration pneumonia
-Advance diet as tolerated
-Unasyn x5days
-Wean o2 as toelrated
Chronic opioid use disorder
-COWS
-As needed Suboxone
-UDS positive for fentanyl
Thrombocytopenia
-Resume LMWH
-HIT Panel negative
SR with PAC's/PVC vs Sinus Arrhythmia
-Ekg reviewed
-not present
-on tele sr with pac's
Electrolyte abnormalities
-Replete as needed
Diabetes type 2
-A1c 8.7
-Continue long and short acting insulin
-SSI
-Carb controlled diet when able to eat
-Goal blood glucose 140-180
Anticipated Discharge: > 48 hours
Subjective/Interval History
-
Date of Service: May 28, 2024
seen and exmained. no new complaints. no acute overnights
feeling much better
no hallucination (TH/AH/VH)
Objective Data
-
Labs:
Laboratory Results
05/28/24 05/28/24
05:46 17:00
APTT > 200 H* Pending
Sodium 141
Potassium 4.0
Chloride 113 H
Carbon Dioxide 24
BUN 21 H
Creatinine 0.9
Glucose 181 H
Calcium 8.4
Total Bilirubin 0.2
AST 25
ALT 16
Alkaline Phosphatase 160 H
Vital Signs:
Vital Signs
Temp Pulse Resp BP Pulse Ox
96.2 F L 124 19 165/96 97
05/28/24 12:05 05/28/24 07:37 05/28/24 05:00 05/28/24 07:37 05/28/24 08:00
I&O
05/27/24 05/28/24 05/29/24
06:59 06:59 06:59
Intake Total 1507.5 / 1507.5 1545 / 1545 360 / 360
Output Total 750 / 750 350 / 350
Balance 757.5 / 757.5 1195 / 1195 360 / 360
[2024-05-28] MEDS: REGLAN 5 MG PO ×2 (14:17→20:17)
--- NOTE | 2024-05-28 14:21 | PTCARENOTE ---
Pt. remains OOB to chair, c/o pain @ 'top of sternum' only when swallowing; continuous hiccups; completed lunch. Pt. self reports hx of reflux. Admin PO Reglan prn- see MAR. Pt. reports pain already subsiding. Dr. Quezada made aware of above
findings. Support person @ bedside. Chair alarm active. Call valles in reach.
[2024-05-28] MEDS: NOVOLOG FLEXPEN-MODERATE RESISTANCE 3 UNITS SC (17:02)
[2024-05-28 17:11] LABS: Glucose - Point of Care 223 mg/dl (70-99)
[2024-05-28 17:35] LABS: APTT 118.2 Sec (23.4-35.0)
--- NOTE | 2024-05-28 19:36 | PTCARENOTE ---
Received pt via handoff, to be transferred to room 401 Bed 2. Pt AAOx3, able to move all extremities. Sinus tach with PAC's, palpable pulses and afebrile, +3 edema in upper extremities. 97% on RA, diminished throughout. Positive bowel sounds in all
4Q. Able to void in the bathroom. Skin diaphoretic and flushed but intact. Heparin gtt running see flowsheet. Call valles at bed side.
[2024-05-28] MEDS: HEPARIN 25000 UNITS/250 ML IV (21:54)
[2024-05-28 22:36] LABS: Glucose - Point of Care 151 mg/dl (70-99)
--- NOTE | 2024-05-28 22:53 | TRANSFER ---
pt arrived from ICU in wheelchair escorted by RN. pt walked from wheelchair to bed with assistance of staff. pt AAOx3, BP elevated at 176/83 and HR sustaining 110s-120s. will administer hydralazine 10mg IV PRN and lopressor 5 mg IV Q6 PRN.
otherwise VSS. pt arrived with heparin gtt running at 1000 units/ hr in R midline. pt resting comfortably at present, oriented to room, call valles within reach. POC ongoing.
[2024-05-28] MEDS: LANTUS 0.06 UNITS SC (23:03)
[2024-05-28] MEDS: ZOFRAN 4 MG IV (23:04)
[2024-05-28] MEDS: LOPRESSOR 5 MG IV (23:05)
[2024-05-29 00:10] LABS: APTT 123.6 Sec (23.4-35.0)
--- NOTE | 2024-05-29 00:49 | VATNOTE ---
VAT paged to draw PTT as patient is on a heparin drip with a midline. Heparin infusing through midline in right arm, left arm unavailable to use due to DVT. VAT established new PIV in right wrist and obtained PTT from new site. Heparin switched to
PIV so subsequent lab draws could be taken from ML if provider would order a KVO. Primary RN spoke to LAMP TESTER AND INSPECTOR that stated no KVO necessary, she stated that heparin only needs to be stopped for ten minutes from ML and PTT can be drawn from ML without
giving a false result. Heparin switched to PIV at 2315 12/7, will draw next PTT from ML around 615 12/8 per protocol.
[2024-05-29 03:57] VITALS: BP 180/90
[2024-05-29] MEDS: APRESOLINE 10 MG IV ×4 (04:24→23:58)
[2024-05-29] MEDS: TUMS CHEWABLE TABLET 200 MG PO ×2 (04:24→20:11)
[2024-05-29 06:41] LABS: Hematocrit 30.5 % (39.0-52.0); Hemoglobin 10.3 g/dL (13.0-18.0); Mean Corp Hgb Conc. 33.8 g/dL (33.0-37.0); Mean Corpuscular Hgb 32.8 pg (27.0-31.0); Mean Corpuscular Volume 97.1 fL (80.0-94.0); Mean Platelet Volume 10.5 fL (7.4-10.4); Platelet Count 150 10^3/uL (130-400); Red Blood Cell Count 3.14 10^6/uL (4.70-6.10); Red Cell Dist. Width 13.6 % (11.5-14.5); White Blood Cell Count 4.3 10^3/uL (4.8-10.8)
[2024-05-29 06:48] LABS: APTT > 200 Sec (23.4-35.0)
[2024-05-29 07:59] VITALS: BP 155/96
--- NOTE | 2024-05-29 08:00 | PTCARENOTE ---
patient's HR 150 with eating his breakfast. IV Lopressor given.
[2024-05-29] MEDS: PROTONIX 40 MG PO (08:06)
[2024-05-29] MEDS: SUBUTEX 4 MG SL (08:06)
[2024-05-29] MEDS: ZESTRIL 5 MG PO (08:07)
[2024-05-29] MEDS: FOLVITE 1 MG PO (08:07)
[2024-05-29] MEDS: VITAMIN B1 100 MG PO ×2 (08:07→19:56)
[2024-05-29] MEDS: FLOMAX 0.4 MG PO (08:07)
[2024-05-29] MEDS: LOPRESSOR 5 MG IV (08:07)
[2024-05-29 08:15] LABS: Glucose - Point of Care 91 mg/dl (70-99)
[2024-05-29 08:54] LABS: APTT 94.8 Sec (23.4-35.0)
[2024-05-29] MEDS: NOVOLOG FLEXPEN-MODERATE RESISTANCE SC ×2 (08:55→16:48)
[2024-05-29 12:02] LABS: Glucose - Point of Care 152 mg/dl (70-99)
[2024-05-29 12:22] VITALS: BP 181/81
[2024-05-29] MEDS: NOVOLOG FLEXPEN-MODERATE RESISTANCE 1 UNITS SC (12:39)
[2024-05-29] MEDS: SENOKOT-S 1 TABLET PO (12:39)
--- NOTE | 2024-05-29 13:02 | W.PN.HOSP.TC ---
Today's Communication/Plan
-
Assessment / Plan
Assessment / Plan
Physical Exam
NAD, resting comfortably in bed
Scleral anicteric
Moist mucous membranes
No JVD
CTA bilateral
Normal S1-S2 no murmurs tachycardic - irregular
Soft nontender nondistended bowel sounds active
BL worse on LUE SWelling then the right
No peripheral pitting edema
Moves extremities spontaneously
AAOx3
superficial venous thrombosis (cephalic vein - left)
-hep gtt for at least 48hours and then can consider dc ac or dc home with ac
--warm compresses, ice packing, elevation
Alcohol use disorder with withdrawal
-Thiamine
-Folate
-Continue msas
Severe sepsis with acute hypoxemic respiratory failure likely due to aspiration pneumonia
-Advance diet as tolerated
-Unasyn x5days
-Wean o2 as toelrated
Chronic opioid use disorder
-COWS
-As needed Suboxone
-UDS positive for fentanyl
Thrombocytopenia
-Resume LMWH
-HIT Panel negative
SR with PAC's/PVC vs Sinus Arrhythmia
-Ekg reviewed
-not present
-on tele sr with pac's
Electrolyte abnormalities
-Replete as needed
Diabetes type 2
-A1c 8.7
-Continue long and short acting insulin
-SSI
-Carb controlled diet when able to eat
-Goal blood glucose 140-180
PT rec SNF
Anticipated Discharge: Within 24 hours
Subjective/Interval History
-
Date of Service: May 29, 2024
seen and examined. no new complaints. no acute overnight events
states he does not want to drink alcohol anymore.
understands that if he is started on AC, there is an increased bleeding risk and if he fall and hits his head he could have a brain bleed
Objective Data
-
Labs:
Laboratory Results
05/29/24 05/29/24 05/29/24
06:06 08:22 14:30
WBC 4.3 L
Hgb 10.3 L
Hct 30.5 L
Plt Count 150
APTT > 200 H* 94.8 H Pending
Vital Signs:
Vital Signs
Temp Pulse Resp BP Pulse Ox
98.2 F 82 18 181/81 96
05/29/24 12:22 05/29/24 12:22 05/29/24 12:22 05/29/24 12:22 05/29/24 12:22
I&O
05/28/24 05/29/24 05/30/24
06:59 06:59 06:59
Intake Total 1545 / 1545 840 / 840 480 / 480
Output Total 350 / 350 350 / 350 300 / 300
Balance 1195 / 1195 490 / 490 180 / 180
[2024-05-29 15:42] LABS: APTT 104.5 Sec (23.4-35.0)
--- NOTE | 2024-05-29 16:04 | PTCARENOTE ---
Patient having 3-4 beat runs of VT. Patient looks to be in Afib intermittently. Physician notified,order for ECG with Rhythm change.
[2024-05-29 16:12] VITALS: BP 134/92
--- NOTE | 2024-05-29 16:50 | PTCARENOTE ---
RN witnessed patient drinking a bottle of Pepto Bismol. RN asked patient not to take own meds from home. Patient c/o indigestion, physician made aware.
--- NOTE | 2024-05-29 16:52 | PTCARENOTE ---
Patient's tele alarming Afib.ECG done also 'Afib' put 'P' waves are present. Physician notified, confirmed 'not Afib'.
[2024-05-29 16:58] LABS: Glucose - Point of Care 145 mg/dl (70-99)
[2024-05-29 19:23] VITALS: BP 171/83
[2024-05-29] MEDS: MELATONIN 5 MG PO (20:57)
[2024-05-29] MEDS: LANTUS 0.06 UNITS SC (20:57)
[2024-05-29 20:58] LABS: Glucose - Point of Care 190 mg/dl (70-99)
[2024-05-29 23:05] VITALS: BP 155/84
[2024-05-30] VITALS (8 sets, daily range): BP systolic 133–200; BP diastolic 70–97; PULSE 95; O2SAT 96
--- NOTE | 2024-05-30 00:19 | PTCARENOTE ---
pt requesting 2L of O2 for comfort over night
[2024-05-30] MEDS: REGLAN 5 MG PO ×2 (03:00→17:06)
[2024-05-30] MEDS: HEPARIN 25000 UNITS/250 ML IV (06:34)
[2024-05-30 07:09] LABS: Glucose - Point of Care 145 mg/dl (70-99)
[2024-05-30] MEDS: LOPRESSOR 5 MG IV ×2 (07:38→20:22)
[2024-05-30] MEDS: NOVOLOG FLEXPEN-MODERATE RESISTANCE SC (07:45)
[2024-05-30] MEDS: VITAMIN B1 100 MG PO ×2 (08:30→20:19)
[2024-05-30] MEDS: PROTONIX 40 MG PO ×2 (08:30→20:20)
[2024-05-30] MEDS: ZESTRIL 5 MG PO (08:30)
[2024-05-30] MEDS: SUBUTEX 4 MG SL (08:30)
[2024-05-30] MEDS: FLOMAX 0.4 MG PO (08:31)
[2024-05-30] MEDS: FOLVITE 1 MG PO (08:31)
[2024-05-30] MEDS: APRESOLINE 10 MG IV ×2 (08:41→20:19)
[2024-05-30 08:48] LABS: APTT 69.8 Sec (23.4-35.0)
--- NOTE | 2024-05-30 10:19 | W.PN.UPDATE ---
Update Note
Progress Note Update
I saw and evaluated the patient. I reviewed the resident�s note and agree with findings and plan as documented in the resident�s note.
Complains of reflux symptoms. Denies hallucinations/tremors.
Gen: NAD, AAOx3.
Eyes: EOMI, PERRLA, no scleral icterus.
Neck: supple.
CV: RRR, +S1/S2, no m/r/g.
Resp: CTAB, no rales, wheezes, or rhonchi.
Abd: +BS, soft, NT, ND
Skin: No rashes.
Neuro: CN 2-12 intact, non-focal.
Psych: Normal mood and affect.
Large L cephalic vein superficial thrombosis:
-stop heparin gtt, transition to Eliquis
Alcohol use disorder with acute withdrawal:
-was on Precedex gtt, now off
-cont Thiamine/Folate
-Continue MSAS protocol
Essential HTN:
-increase lisinopril to 20mg daily
Chronic opioid abuse disorder
-UDS positive for fentanyl
-cont COWS/suboxone
Other problems:
Severe sepsis with acute hypoxemic respiratory failure likely due to aspiration pneumonia: completed a course of abx with Unasyn
Thrombocytopenia: resolved HIT panel NEG
SR with PAC's/PVC vs Sinus Arrhythmia
DM2: a1c 8.7%, SSI/accuchecks/diabetic diet, cont Lantus
Hypokalemia, resolved
Hypernatremia, resolved
FULL/Eliquis
--- NOTE | 2024-05-30 10:35 | W.PN.HOSP.TC ---
Today's Communication/Plan
-
PT OT
DC heparin-switch to Eliquis 10 twice daily
BP control
Continue COWS, MSAS
Telemonitoring
GI consult
Rest of care as before
Assessment / Plan
Assessment / Plan
63-year-old male who was brought to the ED with suspicious seizure activities, vomiting and shakiness morning after Thanksgiving suspicious of alcohol withdrawal.
Chronic medical conditions prior to admission
Chronic alcohol use disorder
Chronic opiate use disorder
Pzb-lvwkvwr-nzepkisgp diabetes type 2
# ETOH w/d /alcohol use disorder
- 4 pints whiskey daily
- Off precedex since evening of 05/24
- Downgraded from ICU to IMU on 05/25
- Downgraded from IMU to telemetry on 05/28
- Mental status improved-no confusion or agitation at this time
- MSAS @8 AM today was 3. Has not required phenobarb/Ativan since 05/26
- Continue thiamine and folate
- BCARES
- PT OT
- Case management involved-OT PT recommends discharge to SNF-patient currently does not have active insurance-Friend 'Hedy' is working with case management to get him insurance
- Advised to quit
# Sepsis POA with acute hypoxic respiratory failure possibly due to aspiration pneumonia
- Able to tolerate food without any nausea/vomiting-speech cleared him for oral intake
- Completed course of Unasyn on 05/26
- Weaned off FiO2-saturating well on RA during daytime
- Supplemental O2 HS as needed for sleep apnea
# Chronic opioid use disorder
- COWS @ 8 AM=4
- Suboxone SL per protocol
- Continues to have loose BMs
- c/s CM/BCARES
- UDS positive for fentanyl
#Drop in platelet count-now resolved
- 4 T-score=14% (translating to intermediate risk); Lovenox on hold on 05/23 & 05/24
- Platelet count trending up-Lovenox HS restarted on 05/25
- Checked coagulation panel, hepatitis panel- normal
- HIT panel neg
- abdominal ultrasound (05/23): Some apparent heterogeneity of the hepatic echotexture with mildly irregular hepatic capsular contour, suspicious for cirrhosis. There is very small volume perihepatic ascites.
- Large area of ecchymosis seen on left arm around IV line- improved
# Tachycardia
- Paroxysmal A-fib with RVR on twelve-lead EKG on 05/22-now resolved
- Occasional tachycardic-continue telemonitoring
- TSH within normal limits
- 2D-echo: Normal regional wall motion. Top normal left ventricular wall thickness. Left ventricular ejection fraction is 65-70%. No significant valvular disease.
- Continue Lopressor 5 every 6 hours as needed to keep HR <110
# Left UE non-pitting edema
- Left UE U/S: Thrombus within the left cephalic vein throughout the upper arm-started on heparin drip on 05/27
- Will transition to oral Eliquis 10 BID today
# Hypomagnesemia
-Resolved
-Replete if needed
# Hypokalemia
- Resolved
- Replete with KCl as needed
# Chest pain/ heartburn
- EKG not suggestive of ischemia, Troponin level normal
- patient continues to c/o of heartburn-pantoprazole does help but not completely
- GI consult
#Labile BP
- Not Controlled
- Will increase lisinopril dose to 20
- Hydralazine as needed
# History of DMII
- A1C 8.7%, noncompliant
- Bedside glucose monitoring
- currently 6 units HS
- Advanced to carb-controlled diet on 05/26
- Blood sugars currently controlled with SSI and Lantus
# DVT prophylaxis
- Eliquis 10 BID
# BPH
- Continue Flomax
CODE STATUS: full code
Anticipated Discharge: Within 24 hours
Subjective/Interval History
-
Date of Service: May 30, 2024
Patient is feeling well. Is alert, awake, and oriented. Not agitated. Mentions suffers from heartburn after having his breakfast.
Objective Data
-
Labs:
Laboratory Results
05/30/24
08:17
APTT 69.8 H
Vital Signs:
Vital Signs
Temp Pulse Resp BP Pulse Ox
97.4 F 86 18 193/89 95
05/30/24 06:51 05/30/24 08:41 05/30/24 06:51 05/30/24 08:41 05/30/24 06:51
I&O
05/29/24 05/30/24 05/31/24
06:59 06:59 06:59
Intake Total 840 / 840 480 / 480 480 / 480
Output Total 350 / 350 300 / 300 325 / 325
Balance 490 / 490 180 / 180 155 / 155
Review of Systems
-
History Source: Patient
All other systems: Reviewed and negative
Abdomen/GI: Reports Nausea (Heartburn and nausea after eating meals)
Physical Exam
-
General: Well Developed, No Apparent Distress and Comfortable
HEENT: Normocephalic, Moist Mucous Membranes and Anicteric
Respiratory: Clear to Auscultation
Cardiac: S1/S2, Irregular Rhythm and Tachycardic
GI: Soft, Nontender, Nondistended and Normal Bowel Sounds
Musculoskeletal: No Clubbing, No Cyanosis, No Edema and Edema, Left Upper Extrem (improved)
Skin: Warm, Dry and Other (Ecchymotic area on left arm improved)
Neuro: Awake, Alert, Oriented and AO x 3
Psych: Calm
[2024-05-30] MEDS: ELIQUIS 10 MG PO ×2 (11:11→20:19)
[2024-05-30] MEDS: ZESTRIL 15 MG PO (11:12)
[2024-05-30] MEDS: ZOFRAN 4 MG IV ×2 (11:13)
[2024-05-30 11:28] LABS: Glucose - Point of Care 193 mg/dl (70-99)
[2024-05-30] MEDS: NOVOLOG FLEXPEN-MODERATE RESISTANCE 1 UNITS SC (11:36)
[2024-05-30 12:29] LABS: Glucose - Point of Care 259 mg/dl (70-99)
--- NOTE | 2024-05-30 12:29 | PTOTSP ---
Dysphagia Therapy
Impressions: Patient presents with suspected to be functional oral/pharyngeal swallowing and signs concerning for esophageal dysphagia. Consider GI consult.
Recommend:
1. Regular, Thin Liquids
2. Pick soft/moist foods for comfort, upright to 90 degrees, remain upright for 30 minutes after PO intake
3. Medications as best tolerated
4. No further dysphagia tx warranted. Please reconsult as appropriate.
--- NOTE | 2024-05-30 12:32 | PTOTSP ---
Dysphagia Therapy
Impressions: Patient is a 63 year old male admitted with ETOH use disorder and withdrawal. He presents with suspected to be functional oral/pharyngeal swallowing and esophageal symptoms of burning/hiccuping regardless of type of PO intake.
Consider GI consult.
Recommend:
1. Regular, Thin Liquids
2. Pick soft/moist foods for comfort, upright to 90 degrees, small sips/bites, remain upright for 30 minutes after PO intake
3. Medications as best tolerated
4. No further dysphagia tx warranted. Please reconsult as appropriate.
[2024-05-30] MEDS: PROCARDIA XL (EXTENDED RELEASE) 30 MG PO (13:16)
--- NOTE | 2024-05-30 13:34 | W.PN.UPDATE ---
Update Note
Progress Note Update
TT with Dr. Vance regarding ongoing heartburn/ reflux.
Will try Carafate TID, PPI BID And Pepcid HS for now and monitor for symptom improvement.
--- NOTE | 2024-05-30 16:47 | CM ---
Pt is lives in [place]. He was visiting and became sick and came to .
Pt did say he has a problem with alcohol. He said he has recourses in [place] and will get a sponsor.
Spoke with Julianne from [facility] .Pt let his insurance in [place] lapse. His friend Hedy is helping him renew.
Pt is aware that he will need to contact Julianne here at to see if hospital stay can get covered.
PT says SNF. Pt has no insurance coverage and is not a resident of [place].
Plan is brother will drive him to his house in [place].
Pt given Eliquis coupon for first month free.
PLAN Home to brother house.
[2024-05-30 16:48] LABS: Glucose - Point of Care 256 mg/dl (70-99)
[2024-05-30] MEDS: CARAFATE 1 GRAM PO ×2 (16:52→21:29)
[2024-05-30] MEDS: NOVOLOG FLEXPEN-MODERATE RESISTANCE 5 UNITS SC (16:55)
[2024-05-30] MEDS: ATIVAN 0.5 MG IV (17:06)
[2024-05-30] MEDS: NSS (PRESERVATIVE FREE) 0.25 ML IV (17:09)
[2024-05-30] MEDS: PEPCID 20 MG PO (20:20)
[2024-05-30] MEDS: LANTUS 0.06 UNITS SC (21:29)
[2024-05-31] VITALS (9 sets, daily range): BP systolic 135–196; BP diastolic 67–94; PULSE 91–109; O2SAT 97
[2024-05-31] MEDS: APRESOLINE 10 MG IV ×2 (04:06→14:00)
[2024-05-31] MEDS: ZOFRAN 4 MG IV (05:21)
[2024-05-31] MEDS: LOPRESSOR 5 MG IV (05:21)
[2024-05-31 07:08] LABS: Glucose - Point of Care 117 mg/dl (70-99)
[2024-05-31] MEDS: NOVOLOG FLEXPEN-MODERATE RESISTANCE SC (07:45)
[2024-05-31] MEDS: PROCARDIA XL (EXTENDED RELEASE) 30 MG PO (07:52)
[2024-05-31] MEDS: ELIQUIS 10 MG PO ×2 (07:52→21:14)
[2024-05-31] MEDS: VITAMIN B1 100 MG PO ×2 (07:52→21:14)
[2024-05-31] MEDS: PROTONIX 40 MG PO ×2 (07:52→21:14)
[2024-05-31] MEDS: FOLVITE 1 MG PO (07:54)
[2024-05-31] MEDS: SUBUTEX 4 MG SL (07:55)
[2024-05-31] MEDS: CARAFATE 1 GRAM PO ×3 (07:55→21:14)
[2024-05-31] MEDS: FLOMAX 0.4 MG PO (07:55)
[2024-05-31] MEDS: ZESTRIL 20 MG PO (07:55)
[2024-05-31 07:59] LABS: Hematocrit 29.6 % (39.0-52.0); Hemoglobin 10.3 g/dL (13.0-18.0); Mean Corp Hgb Conc. 34.8 g/dL (33.0-37.0); Mean Corpuscular Hgb 32.2 pg (27.0-31.0); Mean Corpuscular Volume 92.5 fL (80.0-94.0); Platelet Count 179 10^3/uL (130-400); Red Cell Dist. Width 13.2 % (11.5-14.5); White Blood Cell Count 8.2 10^3/uL (4.8-10.8)
[2024-05-31] MEDS: REGLAN 5 MG PO ×2 (08:11→16:51)
[2024-05-31 08:41] LABS: Blood Urea Nitrogen 16 mg/dl (9-20); Calcium 8.1 mg/dl (8.4-10.2); Carbon Dioxide 24 mmol/L (22-30); Chloride 103 mmol/L (98-107); Estimated Creatinine Clearance 108 ml/min; Glucose 132 mg/dl (70-99); Magnesium 1.6 mg/dl (1.6-2.3); Potassium 4.2 mmol/L (3.5-5.1); Sodium 132 mmol/L (135-145); eGFR > 60.00
--- NOTE | 2024-05-31 08:51 | W.PN.HOSP.TC ---
Today's Communication/Plan
-
BP control
Cont telemetry
Rest of care as before
Assessment / Plan
Assessment / Plan
63-year-old male who was brought to the ED with suspicious seizure activities, vomiting and shakiness morning after Thanksgiving suspicious of alcohol withdrawal.
Chronic medical conditions prior to admission
Chronic alcohol use disorder
Chronic opiate use disorder
Byz-ulmaeiz-krdydbjqk diabetes type 2
# ETOH w/d /alcohol use disorder
- 4 pints whiskey daily
- Off precedex since evening of 05/24
- Downgraded from ICU to IMU on 05/25
- Downgraded from IMU to telemetry on 05/28
- Mental status improved-no confusion or agitation at this time
- MSAS @8 AM today was 4. Has not required phenobarb/Ativan since 05/26
- Continue thiamine and folate
- BCARES
- PT/OT-can be discharged to brother's home with supervision on stairs
- Case management involved-patient currently does not have active insurance and cannot go to SNF-Friend 'Hedy' is working with case management to get him insurance
- Advised to quit
# Sepsis POA with acute hypoxic respiratory failure possibly due to aspiration pneumonia
- Able to tolerate food without any nausea/vomiting-speech cleared him for oral intake- No further dysphagia tx warranted.
- Completed course of Unasyn on 05/26
- Weaned off FiO2-saturating well on RA during daytime
- Supplemental O2 HS as needed for sleep apnea
# Chronic opioid use disorder
- COWS @ 8 AM=3
- Suboxone SL per protocol
- Continues to have loose BMs
- c/s CM/BCARES
- UDS positive for fentanyl
#Drop in platelet count-now resolved
- 4 T-score=14% (translating to intermediate risk); Lovenox on hold on 05/23 & 05/24
- Platelet count trended up-Lovenox HS restarted on 05/25
- Checked coagulation panel, hepatitis panel- normal
- HIT panel neg
- abdominal ultrasound (05/23): Some apparent heterogeneity of the hepatic echotexture with mildly irregular hepatic capsular contour, suspicious for cirrhosis. There is very small volume perihepatic ascites.
- Large area of ecchymosis seen on left arm around IV line- improved
# Tachycardia
- Paroxysmal A-fib with RVR on twelve-lead EKG on 05/22-now resolved
- Occasional tachycardic-alternating between A-fib and sinus arrhythmia-continue telemonitoring
- TSH within normal limits
- 2D-echo: Normal regional wall motion. Top normal left ventricular wall thickness. Left ventricular ejection fraction is 65-70%. No significant valvular disease.
- Continue Lopressor 5 every 6 hours as needed to keep HR <110
# Left UE non-pitting edema
- Left UE U/S: Thrombus within the left cephalic vein throughout the upper arm-started on heparin drip on 05/27
- Transitioned to oral Eliquis 10 BID 05/30
# Hypomagnesemia
-Resolved
-Replete if needed
# Hypokalemia
- Resolved
- Replete with KCl as needed
# Chest pain/ heartburn
- EKG not suggestive of ischemia, troponin level normal
- GI consult placed yesterday-GI recommended Carafate 3 times daily, PPI twice daily, Pepcid at bedtime (communicated through [place] text)-patient's symptoms appear to have improved this morning.
TT with GI this morning: there is not much more they can do at this time since alcoholic esophagitis takes time to improve, and given patient's improvement, consult can be canceled.
#Labile BP
- Increased lisinopril to 20 and added Procardia
- Still not controlled
- Hydralazine as needed
# History of DMII
- A1C 8.7%, noncompliant
- Bedside glucose monitoring
- Currently 6 units HS
- Advanced to carb-controlled diet on 05/26
- Blood sugars currently controlled with SSI and Lantus
# DVT prophylaxis
- Eliquis 10 BID
# BPH
- Continue Flomax
CODE STATUS: full code
Anticipated Discharge: Within 24 hours
Subjective/Interval History
-
Date of Service: May 31, 2024
Patient mentions his reflux symptoms are better today. However, he does occasionally still feel nauseous. Could tolerate breakfast without any vomiting.
Objective Data
-
Labs:
Laboratory Results
05/31/24
07:42
WBC 8.2
Hgb 10.3 L
Hct 29.6 L
Plt Count 179
Sodium 132 L
Potassium 4.2
Chloride 103
Carbon Dioxide 24
BUN 16
Creatinine 0.7
Glucose 132 H
Calcium 8.1 L
Vital Signs:
Vital Signs
Temp Pulse Resp BP Pulse Ox
98 F 94 20 187/94 93
05/31/24 07:05 05/31/24 07:52 05/31/24 07:05 05/31/24 07:52 05/31/24 07:05
I&O
05/30/24 05/31/24 06/01/24
06:59 06:59 06:59
Intake Total 480 / 480 720 / 720
Output Total 300 / 300 925 / 925
Balance 180 / 180 -205 / -205
Review of Systems
-
History Source: Patient
All other systems: Reviewed and negative
Abdomen/GI: Reports Nausea (Heartburn and nausea after eating meals has improved)
Physical Exam
-
General: Well Developed, No Apparent Distress and Comfortable
HEENT: Normocephalic, Moist Mucous Membranes and Anicteric
Respiratory: Clear to Auscultation
Cardiac: S1/S2, Irregular Rhythm (Alternating between Afib and sinus arrhythmia) and Tachycardic (as high as 140s)
GI: Soft, Nontender, Nondistended and Normal Bowel Sounds
Musculoskeletal: No Clubbing, No Cyanosis, No Edema and Edema, Left Upper Extrem (improved)
Skin: Warm, Dry and Other (Ecchymosis area on left arm improved)
Neuro: Awake, Alert, Oriented and AO x 3
Psych: Calm
--- NOTE | 2024-05-31 11:02 | W.PN.UPDATE ---
Update Note
Progress Note Update
I saw and evaluated the patient. I reviewed the resident�s note and agree with findings and plan as documented in the resident�s note.
Reflux symptoms improved from yesterday. Denies chest pain or shortness of breath. Reports mild tremor, recent MSAS 5.
Gen: NAD, AAOx3.
Eyes: EOMI, PERRLA, no scleral icterus.
Neck: supple.
CV: irreg/irreg, +S1/S2, no m/r/g.
Resp: CTAB, no rales, wheezes, or rhonchi.
Abd: +BS, soft, NT, ND
Skin: No rashes.
Neuro: CN 2-12 intact, non-focal.
Psych: Normal mood and affect.
Echo: Normal left ventricular chamber size. Normal left ventricular systolic
function. Normal regional wall motion. Top normal left ventricular wall
thickness. Left ventricular ejection fraction is 65-70%.
No significant valvular disease.
No prior study available for comparison.
Large L cephalic vein superficial thrombosis:
-was on heparin gtt, now transitioned to Eliquis
Alcohol use disorder with acute withdrawal:
-was on Precedex gtt, now off
-cont Thiamine/Folate
-Continue MSAS protocol
Essential HTN with hypertensive urgency:
-start Toprol XL 50mg daily
-cont Lisinopril/Procardia XL
Chronic opioid abuse disorder
-UDS positive for fentanyl
-cont COWS/suboxone
SR with PAC's/PVCs/SA:
-Start Toprol-XL 50 mg daily
-Case discussed with Dr. Pagan and, as per his review of telemetry today, 'still sinus mechanism with brief episodes of atrial tachycardia.'
-Echo above, unremarkable
Other problems:
Severe sepsis with acute hypoxemic respiratory failure likely due to aspiration pneumonia: completed a course of abx with Unasyn
Thrombocytopenia: resolved HIT panel NEG
DM2: a1c 8.7%, SSI/accuchecks/diabetic diet, cont Lantus
Hypokalemia, resolved
Hypernatremia, resolved, now with mild hyponatremia
FULL/Eliquis
Total time spent on today's encounter was 50 minutes which included time spent in counseling the patient/family regarding diagnosis and treatment plan as listed above, goals of care, and symptom management. Case was discussed with nursing staff,
specialists, and care coordinators/case management. All labs and imaging personally reviewed by me. Remainder the time spent in detailed review of previous records, lab data, imaging, and other medical provider documentation.
[2024-05-31 11:31] LABS: Glucose - Point of Care 230 mg/dl (70-99)
[2024-05-31] MEDS: TOPROL XL 50 MG PO (12:00)
[2024-05-31] MEDS: NOVOLOG FLEXPEN-MODERATE RESISTANCE 3 UNITS SC (12:01)
[2024-05-31] MEDS: ATIVAN 0.5 MG IV ×2 (12:13→16:52)
[2024-05-31] MEDS: NSS (PRESERVATIVE FREE) 0.5 ML IV (12:18)
[2024-05-31] MEDS: LIORESAL 10 MG PO ×2 (15:01→21:14)
[2024-05-31 16:35] LABS: Glucose - Point of Care 185 mg/dl (70-99)
[2024-05-31] MEDS: NOVOLOG FLEXPEN-MODERATE RESISTANCE 1 UNITS SC (16:40)
[2024-05-31] MEDS: NSS (PRESERVATIVE FREE) 0.25 ML IV (16:53)
--- NOTE | 2024-05-31 17:14 | CM ---
Pt not medically ready for dc today.
Plan is for patient to be dc to his brother Han altamirano in [place].
He is working on renewing his insurance in [place].
PLAN Home to brothers home in [place]
[2024-05-31] MEDS: LIORESAL PO (18:09)
[2024-05-31 21:10] LABS: Glucose - Point of Care 199 mg/dl (70-99)
[2024-05-31] MEDS: PEPCID 20 MG PO (21:14)
[2024-05-31] MEDS: LANTUS 0.08 UNITS SC (21:15)
[2024-06-01] VITALS (7 sets, daily range): BP systolic 140–190; BP diastolic 79–117
[2024-06-01] MEDS: LIORESAL 10 MG PO ×4 (04:18→21:47)
[2024-06-01] MEDS: LOPRESSOR 5 MG IV (06:12)
[2024-06-01] MEDS: ZANAFLEX 2 MG PO ×2 (06:12→19:53)
[2024-06-01 06:22] LABS: Blood Urea Nitrogen 14 mg/dl (9-20); Calcium 8.2 mg/dl (8.4-10.2); Carbon Dioxide 27 mmol/L (22-30); Chloride 103 mmol/L (98-107); Estimated Creatinine Clearance 108 ml/min; Glucose 55 mg/dl (70-99); Sodium 135 mmol/L (135-145); eGFR > 60.00
[2024-06-01 06:42] LABS: Glucose - Point of Care 55 mg/dl (70-99)
[2024-06-01 07:05] LABS: Glucose - Point of Care 93 mg/dl (70-99)
[2024-06-01] MEDS: FLOMAX 0.4 MG PO (07:11)
[2024-06-01] MEDS: ELIQUIS 10 MG PO ×2 (07:11→19:51)
[2024-06-01] MEDS: PROTONIX 40 MG PO ×2 (07:11→19:52)
[2024-06-01] MEDS: PROCARDIA XL (EXTENDED RELEASE) 30 MG PO (07:11)
[2024-06-01] MEDS: ZESTRIL 20 MG PO (07:11)
[2024-06-01] MEDS: FOLVITE 1 MG PO (07:11)
[2024-06-01] MEDS: VITAMIN B1 100 MG PO ×2 (07:11→19:52)
[2024-06-01] MEDS: CARAFATE 1 GRAM PO ×3 (07:11→21:48)
[2024-06-01] MEDS: TOPROL XL 50 MG PO ×2 (07:11→09:39)
[2024-06-01] MEDS: SUBUTEX 4 MG SL (07:12)
--- NOTE | 2024-06-01 08:24 | W.PN.UPDATE ---
Update Note
Progress Note Update
I saw and evaluated the patient. I reviewed the resident�s note and agree with findings and plan as documented in the resident�s note.
No new complaints.
Gen: NAD, AAOx3.
Eyes: EOMI, PERRLA, no scleral icterus.
Neck: supple.
CV: Tachycardic, regular rhythm with frequent premature beats, +S1/S2, no m/r/g.
Resp: remains CTAB, no rales, wheezes, or rhonchi.
Abd: +BS, soft, NT, ND
Skin: No rashes.
Neuro: remains CN 2-12 intact, non-focal.
Psych: Normal mood and affect.
Echo: Normal left ventricular chamber size. Normal left ventricular systolic
function. Normal regional wall motion. Top normal left ventricular wall
thickness. Left ventricular ejection fraction is 65-70%.
No significant valvular disease.
No prior study available for comparison.
Large L cephalic vein superficial thrombosis:
-was on heparin gtt, now transitioned to Eliquis
Alcohol use disorder with acute withdrawal:
-was on Precedex gtt, now off
-cont Thiamine/Folate
-Continue MSAS protocol
Essential HTN with hypertensive urgency:
-increase Toprol XL to 100mg daily
-cont Lisinopril/Procardia XL
Chronic opioid abuse disorder
-UDS positive for fentanyl
-cont COWS/suboxone
SR with PAC's/PVCs/SA:
-increase Toprol XL to 100mg daily
-Case discussed with Dr. Pagan on 05/31/24 and 06/01/24 and no evidence of afib on his review of tele. Since yesterday some brief A-tach.
-Echo above, unremarkable
Other problems:
Severe sepsis with acute hypoxemic respiratory failure likely due to aspiration pneumonia: completed a course of abx with Unasyn
Thrombocytopenia: resolved HIT panel NEG
DM2: a1c 8.7%, SSI/accuchecks/diabetic diet, cont Lantus
Hypokalemia, resolved
Hypernatremia, resolved
Mild hyponatremia, resolved
FULL/Eliquis
[2024-06-01] MEDS: NOVOLOG FLEXPEN-MODERATE RESISTANCE SC ×2 (08:32→12:09)
--- NOTE | 2024-06-01 09:55 | W.PN.HOSP.TC ---
Today's Communication/Plan
-
Patient is medically stable for discharge pending cardiology consult
Assessment / Plan
Assessment / Plan
63-year-old male who was brought to the ED with suspicious seizure activities, vomiting and shakiness morning after Thanksgiving suspicious of alcohol withdrawal.
Chronic medical conditions prior to admission
Chronic alcohol use disorder
Chronic opiate use disorder
Jkb-zcyoheq-niktflixn diabetes type 2
# ETOH w/d /alcohol use disorder
- 4 pints whiskey daily
- Off precedex since evening of 05/24
- Downgraded from ICU to IMU on 05/25
- Downgraded from IMU to telemetry on 05/28
- Mental status improved-no confusion or agitation at this time
- MSAS @8 AM today was 2. Has not required phenobarb/Ativan since 05/26
- Continue thiamine and folate
- BCARES
- Appreciate PT/OT-can be discharged to brother's home with supervision on stairs
- Case management involved-patient currently does not have active insurance and cannot go to SNF-Friend 'Hedy' is working with case management to get him insurance
- Advised to gradually decrease and eventually quit alcohol
# Sepsis POA with acute hypoxic respiratory failure possibly due to aspiration pneumonia
- Able to tolerate food without any nausea/vomiting-speech cleared him for oral intake- No further dysphagia treatment warranted.
- Completed course of Unasyn on 05/26
- Weaned off FiO2-saturating well on RA during daytime
- Supplemental O2 HS as needed for sleep apnea
# Chronic opioid use disorder
- COWS @ 8 AM=1
- Suboxone SL per protocol
- No more loose bowels this AM (06/01)
- c/s CM/BCARES
- UDS positive for fentanyl
#Drop in platelet count-now resolved
- 4 T-score=14% (translating to intermediate risk); Lovenox on hold on 05/23 & 05/24
- Platelet count trended up-Lovenox HS restarted on 05/25
- Checked coagulation panel, hepatitis panel- normal
- HIT panel neg
- abdominal ultrasound (05/23): Some apparent heterogeneity of the hepatic echotexture with mildly irregular hepatic capsular contour, suspicious for cirrhosis. There is very small volume perihepatic ascites.
- Large area of ecchymosis seen on left arm around IV line- improved
# Tachycardia
- Paroxysmal A-fib with RVR on twelve-lead EKG on 05/22-now resolved
- Occasional tachycardic-alternating between A-fib and sinus arrhythmia-continue telemonitoring-cardiology consulted
- TSH within normal limits
- 2D-echo: Normal regional wall motion. Top normal left ventricular wall thickness. Left ventricular ejection fraction is 65-70%. No significant valvular disease.
- Added Toprol 50 on 05/31
- Lopressor 5 every 6 hours as needed to keep HR <110
# Left UE non-pitting edema
- Left UE U/S: Thrombus within the left cephalic vein throughout the upper arm-started on heparin drip on 05/27
- Transitioned to oral Eliquis 10 BID 05/30
# Hypomagnesemia
-Resolved
-Replete if needed
# Hypokalemia
- Resolved
- Replete with KCl as needed
# Chest pain/ heartburn
- EKG not suggestive of ischemia, troponin level normal
- GI consult placed yesterday-GI recommended Carafate 3 times daily, PPI twice daily, Pepcid at bedtime (communicated through [place] text)-patient's symptoms appear to have improved with this treatment.
TT with GI: there is not much more they can do at this time since alcoholic esophagitis takes time to improve, and given patient's improvement, consult can be canceled.
- Hiccups controlled with baclofen
#Labile BP
- Increased lisinopril to 20 and added Procardia
- Added Toprol XL 50
- Still not ideally controlled
- Continue hydralazine as needed with parameters
# History of DMII
- A1C 8.7%, noncompliant
- Bedside glucose monitoring
- Currently 6 units HS
- Advanced to carb-controlled diet on 05/26
- Blood sugars currently controlled with SSI and Lantus
# DVT prophylaxis
- Eliquis 10 BID
# BPH
- Continue Flomax
CODE STATUS: full code
Anticipated Discharge: Today
Subjective/Interval History
-
Date of Service: June 01, 2024
Patient is resting comfortably in bed. Alert, awake and oriented. Mentions he feels good. Heartburn and hiccups have improved.
Does not offer any complaints.
Objective Data
-
Labs:
Laboratory Results
06/01/24
05:09
Sodium 135
Potassium 4.0
Chloride 103
Carbon Dioxide 27
BUN 14
Creatinine 0.7
Glucose 55 L*
Calcium 8.2 L
Vital Signs:
Vital Signs
Temp Pulse Resp BP Pulse Ox
98.4 F 67 18 173/117 96
06/01/24 09:46 06/01/24 09:46 06/01/24 09:46 06/01/24 09:46 06/01/24 09:46
I&O
05/31/24 06/01/24 06/02/24
06:59 06:59 06:59
Intake Total 720 / 720 1380 / 1380
Output Total 925 / 925 2054 / 2054
Balance -205 / -205 -5 / -
Review of Systems
-
History Source: Patient
All other systems: Reviewed and negative
Abdomen/GI: Reports Nausea (Heartburn and nausea after eating meals has improved)
Physical Exam
-
General: Well Developed, No Apparent Distress and Comfortable
HEENT: Normocephalic, Moist Mucous Membranes and Anicteric
Respiratory: Clear to Auscultation
Cardiac: S1/S2, Irregular Rhythm and Tachycardic (as high as 140s)
GI: Soft, Nontender, Nondistended and Normal Bowel Sounds
Musculoskeletal: No Clubbing, No Cyanosis, No Edema and Edema, Left Upper Extrem (improved)
Skin: Warm, Dry and Other (Ecchymosis area on left arm improved)
Neuro: Awake, Alert, Oriented and AO x 3
Psych: Calm
--- NOTE | 2024-06-01 11:11 | CM ---
Pt said he has resource for alcohol rehab in [place].
Plan is for patient to be dc to his brother Han altamirano in [place].
He also has friend Hedy that is helping him
He is working on renewing his insurance in [place].
PLAN Home to brothers home in [place]
[2024-06-01 11:52] LABS: Glucose - Point of Care 136 mg/dl (70-99)
[2024-06-01 16:44] LABS: Glucose - Point of Care 198 mg/dl (70-99)
[2024-06-01] MEDS: NOVOLOG FLEXPEN-MODERATE RESISTANCE 1 UNITS SC (16:44)
[2024-06-01] MEDS: APRESOLINE 10 MG IV (19:53)
[2024-06-01] MEDS: FLUSH (NSS) 2 FLUSH IV (19:54)
[2024-06-01 21:09] LABS: Glucose - Point of Care 204 mg/dl (70-99)
[2024-06-01] MEDS: LANTUS 0.08 UNITS SC (21:47)
[2024-06-01] MEDS: PEPCID 20 MG PO (21:48)
[2024-06-02] VITALS (7 sets, daily range): BP systolic 143–194; BP diastolic 72–98
[2024-06-02] MEDS: APRESOLINE 10 MG IV ×3 (00:23→12:46)
[2024-06-02] MEDS: FLUSH (NSS) 2 FLUSH IV ×2 (00:25→04:40)
[2024-06-02] MEDS: REGLAN 5 MG PO (00:46)
[2024-06-02] MEDS: LIORESAL 10 MG PO ×2 (04:37→09:32)
--- NOTE | 2024-06-02 05:55 | PTCARENOTE ---
BP elevated to 170's/70's. HR 90's-100's. He had an unsustained burst to 163 x 1 while sleeping. Prn hydralazine x3 this shift.
[2024-06-02 06:21] LABS: Hematocrit 31.5 % (39.0-52.0); Hemoglobin 10.6 g/dL (13.0-18.0); Mean Corp Hgb Conc. 33.7 g/dL (33.0-37.0); Mean Corpuscular Hgb 31.8 pg (27.0-31.0); Mean Corpuscular Volume 94.6 fL (80.0-94.0); Mean Platelet Volume 10.2 fL (7.4-10.4); Platelet Count 200 10^3/uL (130-400); Red Blood Cell Count 3.33 10^6/uL (4.70-6.10); Red Cell Dist. Width 13.3 % (11.5-14.5); White Blood Cell Count 5.7 10^3/uL (4.8-10.8)
[2024-06-02 06:49] LABS: Blood Urea Nitrogen 12 mg/dl (9-20); Calcium 8.2 mg/dl (8.4-10.2); Carbon Dioxide 28 mmol/L (22-30); Chloride 101 mmol/L (98-107); Estimated Creatinine Clearance 108 ml/min; Glucose 107 mg/dl (70-99); Potassium 4.2 mmol/L (3.5-5.1); Sodium 133 mmol/L (135-145); eGFR > 60.00
[2024-06-02 07:36] LABS: Glucose - Point of Care 119 mg/dl (70-99)
--- NOTE | 2024-06-02 08:45 | W.PN.UPDATE ---
Addendum entered and electronically signed by Jonny Bennett MD 06/02/24 12:19:
Appreciate cardiology consult. Case discussed with Dr. Cabrera who stated pt had PAF/PAT/ectopy/NSVT on tele. Will be on current dose of Toprol XL on d/c. Will also complete 7 further doses fo Eliquis 10mg PO BID (for Large L cephalic vein
superficial thrombosis) followed by maintenance Eliquis 5mg PO BID there after. Will be placed on PO Mg. Will follow-up with his in home aide in [place]. Will likely need a stress test.
Total time spent on d/c = 40 min. This included today's physical exam, progress note, review of laboratory and diagnostic data, preparation of discharge documents and prescriptions, and discussions about the pt's hospital course and discharge plan
with the patient and other healthcare or medical involved in the patient's care.
Original Note:
Update Note
Progress Note Update
I saw and evaluated the patient. I reviewed the resident�s note and agree with findings and plan as documented in the resident�s note.
No new complaints.
Gen: NAD, AAOx3.
Eyes: EOMI, PERRLA, no scleral icterus.
Neck: supple.
CV: Remains tachycardic, regular rhythm with frequent premature beats, +S1/S2, no m/r/g.
Resp: Continues to remain CTAB, no rales, wheezes, or rhonchi.
Abd: +BS, soft, NT, ND
Skin: No rashes.
Neuro: Continues to remain CN 2-12 intact, non-focal.
Psych: Normal mood and affect.
Echo: Normal left ventricular chamber size. Normal left ventricular systolic
function. Normal regional wall motion. Top normal left ventricular wall
thickness. Left ventricular ejection fraction is 65-70%.
No significant valvular disease.
No prior study available for comparison.
SR with PAC's/PVCs/SA:
-started on Toprol XL, now increased to 100mg daily
-Echo above, unremarkable
-pt still tachycardic, will place official cardiology c/s today.
Large L cephalic vein superficial thrombosis:
-was on heparin gtt, now transitioned to Eliquis
Alcohol use disorder with acute withdrawal:
-was on Precedex gtt, now off
-cont Thiamine/Folate
-Continue MSAS protocol
Essential HTN with hypertensive urgency:
-started on Toprol XL, now increased to 100mg daily
-cont Lisinopril/Procardia XL
Chronic opioid abuse disorder
-UDS positive for fentanyl
-cont COWS/suboxone
Other problems:
Severe sepsis with acute hypoxemic respiratory failure likely due to aspiration pneumonia: completed a course of abx with Unasyn
Thrombocytopenia: resolved HIT panel NEG
DM2: a1c 8.7%, SSI/accuchecks/diabetic diet, cont Lantus
Hypokalemia, resolved
Hypernatremia, resolved
Mild hyponatremia, resolved
FULL/Eliquis
--- NOTE | 2024-06-02 09:07 | W.PN.HOSP.TC ---
Today's Communication/Plan
-
Cardiology consult to review telemetry and any recommendation for medication changes
Discharge
Assessment / Plan
Assessment / Plan
63-year-old male who was brought to the ED with suspicious seizure activities, vomiting and shakiness morning after Thanksgiving suspicious of alcohol withdrawal.
Chronic medical conditions prior to admission
Chronic alcohol use disorder
Chronic opiate use disorder
Sbg-iekhlef-pquoxnbix diabetes type 2
# ETOH w/d /alcohol use disorder
- 4 pints whiskey daily
- Off precedex since evening of 05/24
- Downgraded from ICU to IMU on 05/25
- Downgraded from IMU to telemetry on 05/28
- Mental status improved-no confusion or agitation at this time
- MSAS @8 AM today was 1. Has not required phenobarb/Ativan since 05/26
- Continue thiamine and folate
- BCARES
- Appreciate PT/OT-can be discharged to brother's home with supervision on stairs
- Case management involved-patient currently does not have active insurance and cannot go to SNF-Friend 'Hedy' is working with case management to get him insurance
- Advised to gradually decrease and eventually quit alcohol
# Sepsis POA with acute hypoxic respiratory failure possibly due to aspiration pneumonia
- Able to tolerate food without any nausea/vomiting-speech cleared him for oral intake- No further dysphagia treatment warranted.
- Completed course of Unasyn on 05/26
- Weaned off FiO2-saturating well on RA during daytime
- Supplemental O2 HS as needed for sleep apnea
# Chronic opioid use disorder
- COWS @ 8 AM=1
- Suboxone SL per protocol
- No more loose bowels this AM (06/01)
- c/s CM/BCARES
- UDS positive for fentanyl
#Drop in platelet count-now resolved
- 4 T-score=14% (translating to intermediate risk); Lovenox on hold on 05/23 & 05/24
- Platelet count trended up-Lovenox HS restarted on 05/25
- Checked coagulation panel, hepatitis panel- normal
- HIT panel neg
- abdominal ultrasound (05/23): Some apparent heterogeneity of the hepatic echotexture with mildly irregular hepatic capsular contour, suspicious for cirrhosis. There is very small volume perihepatic ascites.
- Large area of ecchymosis seen on left arm around IV line- improved
# Tachycardia
- Paroxysmal A-fib with RVR on twelve-lead EKG on 05/22-now resolved
- Tachycardia with SA/PACs/PVCs-continue telemonitoring-cardiology consulted
- TSH within normal limits
- 2D-echo: Normal regional wall motion. Top normal left ventricular wall thickness. Left ventricular ejection fraction is 65-70%. No significant valvular disease.
- Added Toprol 50 on 05/31-increased to 100 on 06/02
- Lopressor 5 every 6 hours as needed to keep HR <110
# Left UE non-pitting edema
- Left UE U/S: Thrombus within the left cephalic vein throughout the upper arm-started on heparin drip on 05/27
- Transitioned to oral Eliquis 10 BID 05/30
# Hypomagnesemia
-Resolved
-Replete if needed
# Hypokalemia
- Resolved
- Replete with KCl as needed
# Chest pain/ heartburn
- EKG not suggestive of ischemia, troponin level normal
- GI consult placed yesterday-GI recommended Carafate 3 times daily, PPI twice daily, Pepcid at bedtime (communicated through [place] text)-patient's symptoms appear to have improved with this treatment.
TT with GI: there is not much more they can do at this time since alcoholic esophagitis takes time to improve, and given patient's improvement, consult can be canceled.
- Hiccups controlled with baclofen
#Labile BP
- Increased lisinopril to 20 and added Procardia
- Added Toprol XL
- Still not ideally controlled
- Continue hydralazine as needed with parameters
# History of DMII
- A1C 8.7%, noncompliant
- Bedside glucose monitoring
- Currently 6 units HS
- Advanced to carb-controlled diet on 05/26
- Blood sugars currently controlled with SSI and Lantus
# DVT prophylaxis
- Eliquis 10 BID
# BPH
- Continue Flomax
CODE STATUS: full code
Anticipated Discharge: Today
Subjective/Interval History
-
Date of Service: June 02, 2024
Patient is sitting comfortably in bed. Could tolerate breakfast without any difficulties. Heartburn has improved significantly. Hiccups resolved. Does not offer any complaints. Denies any chest pain or feeling of palpitations. Denies any
shortness of breath.
Objective Data
-
Labs:
Laboratory Results
06/02/24
05:32
WBC 5.7
Hgb 10.6 L
Hct 31.5 L
Plt Count 200
Sodium 133 L
Potassium 4.2
Chloride 101
Carbon Dioxide 28
BUN 12
Creatinine 0.7
Glucose 107 H
Calcium 8.2 L
Vital Signs:
Vital Signs
Temp Pulse Resp BP Pulse Ox
98 F 117 18 143/98 96
06/02/24 08:02 06/02/24 08:02 06/02/24 08:02 06/02/24 08:02 06/02/24 08:02
I&O
06/01/24 06/02/24 06/03/24
06:59 06:59 06:59
Intake Total 1380 / 1380 480 / 480
Output Total 2054 1080 / 1080 300 / 300
Balance -675 / -675 -600 / -600 -300 / -300
Review of Systems
-
History Source: Patient
All other systems: Reviewed and negative
Physical Exam
-
General: Well Developed, No Apparent Distress and Comfortable
HEENT: Normocephalic, Moist Mucous Membranes and Anicteric
Respiratory: Clear to Auscultation
Cardiac: S1/S2, Irregular Rhythm and Tachycardic
GI: Soft, Nontender, Nondistended and Normal Bowel Sounds
Musculoskeletal: No Clubbing, No Cyanosis, No Edema and Edema, Left Upper Extrem (improved)
Skin: Warm, Dry and Other (Ecchymosis area on left arm improved)
Neuro: Awake, Alert, Oriented and AO x 3
Psych: Calm
[2024-06-02] MEDS: NOVOLOG FLEXPEN-MODERATE RESISTANCE SC (09:28)
[2024-06-02] MEDS: CARAFATE 1 GRAM PO (09:30)
[2024-06-02] MEDS: ELIQUIS 10 MG PO (09:30)
[2024-06-02] MEDS: FLOMAX 0.4 MG PO (09:31)
[2024-06-02] MEDS: PROTONIX 40 MG PO (09:31)
[2024-06-02] MEDS: FOLVITE 1 MG PO (09:31)
[2024-06-02] MEDS: PROCARDIA XL (EXTENDED RELEASE) 30 MG PO ×2 (09:31→13:04)
[2024-06-02] MEDS: ZESTRIL 20 MG PO (09:32)
[2024-06-02] MEDS: VITAMIN B1 100 MG PO (09:32)
[2024-06-02] MEDS: SUBUTEX 4 MG SL (09:32)
[2024-06-02] MEDS: TOPROL XL 100 MG PO (09:32)
--- NOTE | 2024-06-02 09:32 | CM ---
Addendum entered by Yudy Sifuentes RN 06/02/24 15:12:
sent scripts to [facility] in [facility]. Pt given Eliquis coupon.
Spoke with patient gave him address and number to [facility] . Emphasized to pt to fill all meds before leaving town. He said he has used [facility] in past.
Hedy his friend will drive him back to [place] today.
He has a PCP in [place] that he will follow up. He said he will also will follow with a termite control technician.
He said his insurance should be reinstated next week . His friend assisted him.
Original Note:
Pt said he has resource for alcohol rehab in [place].
Plan is for patient to be dc to his brother Han altamirano in [place].
He also has friend Hedy that is helping him
He is working on renewing his insurance in [place].
Pt given Eliquis coupon for first month free.
PLAN Home to brothers home in [place]
[2024-06-02 10:49] LABS: Magnesium 1.6 mg/dl (1.6-2.3)
--- NOTE | 2024-06-02 10:49 | CON.CAR ---
Addendum entered and electronically signed by Loan Cabrera DO 06/02/24 13:08:
I saw and examined the patient.
The Immigration Consultant's note was reviewed and I agree with the note.
Comment: Patient seen and examined in room 401 bed 2 with nursing present. Cardiology consulted for tachycardia. Bill is a 63-year-old gentleman with alcoholism, IV heroin abuse, ongoing tobacco use, noncompliance, type 2 diabetes mellitus who
presents following a seizure complicated by aspiration pneumonia and sepsis. He had stopped using IV heroin 1 week prior to traveling up from [place] to spend Thanksgiving with friends however was still drinking 2 to 4 pints of whiskey daily.
Hospitalization also complicated by acute left cephalic vein thrombosis now on Eliquis anticoagulation, and electrolyte abnormalities. Patient states he has chronic upper and lower extremity edema. On EKG and telemetry he has been found to have
paroxysmal atrial fibrillation, sinus tachycardia, PACs, PVCs, PAT and some NSVT. He was started on metoprolol succinate which was increased this morning to 100 mg daily. He denies palpitations, shortness of breath, or chest pain. He denies a
history of known coronary artery disease or heart failure. He denies a history of known atrial fibrillation. He denies a history of stroke/TIA. He has not previously seen cardiology. Per hospitalist team, plan for discharge today.
General: Calm, no acute distress on room air
Heart: Regular with ectopy. Positive S1-S2. No murmurs.
Lungs: Bronchovesicular breath sounds with coarse rhonchi. No wheezes. No crackles
Abd: Positive BS, NT/ND, neg rebound/rigidity/guarding
Ext: Pitting edema right lower extremity greater than left, +1. Bilateral hand edema.
Neuro: nonfocal
Plan:
Tachyarrhythmia
-Review of available telemetry and EKGs noted mostly sinus tachycardia with PACs as well as PVCs and short runs of atrial tachycardia and nonsustained ventricular tachycardia.
-EKG read May 22 and May 25 with atrial fibrillation
-He is now on full dose Eliquis anticoagulation for a left cephalic superficial thrombosis but would continue Eliquis 5 mg twice daily after acute treatment completed
-2D echocardiogram with normal biventricular size and systolic function and no significant valve pathology
-Continue Toprol-XL 100 mg daily
-Start magnesium 400 mg daily
-Alcohol and drug cessation strongly advised
-I have recommended that he see a hedis review nurse near his home in [place] for follow-up
-I have also recommended an outpatient monitoring engineer and to consider an outpatient ischemic evaluation
No cardiac contraindication for discharge today
Original Note:
Consultation
Consultation Request
Date/Time Consultation Performed: 06/02/24
Requesting Provider: Dr. Bennett
Performing Provider: Alyce Keita PA-C for Dr. Cabrera
Reason for Consultation: abnormal heart rhythm
Medical History
-
Chief Complaint: seizure
History of Present Illness:
Patient is a 63 yo M with alcoholism, tobacco use (chewing tobacco), DM2, noncompliance who reports prior to admission had been drinking 2-4 pints of whisky daily as well as using IV heroin daily. He reports he came up to visit a friend in the area
for Thanksgiving and had a seizure, vomiting felt to be related to withdrawal (he had stopped using heroin ~ 1 week prior to travelling). He was treated for sepsis felt to be secondary to aspiration PNA in addition. Cardiology consulted due to
tachycardia and abnormal heart rhythm. Patient is asymptomatic and denies CP, SOB, palpitations, lightheadedness. Planned for DC today.
PMH:
Alcoholism
IV heroin use
DM2
Tobacco use (chewing tobacco)
Noncompliance
Past Medical History
Past Medical History: Other (in HPI)
Social History
Tobacco: Other (chews tobacco)
Alcohol: Daily (2-4 pints whisky)
Drug: IVDA
Living: Other (girlfriend)
Family History
Family History: CAD (in grandparents)
Allergies / Home Medications
Allergy/AdvReac Type Severity Reaction Status Date / Time
No Known Allergies Allergy Verified 05/20/24 08:50
�Medication �Instructions �Recorded �Confirmed �Type
folic acid 1 mg tablet 1 mg PO DAILY Supplement 05/20/24 05/20/24 History
therapeutic multivitamin 1 tab PO DAILY Supplement 05/20/24 05/20/24 History
Review of Systems
-
History Source: Patient
All other systems: Negative unless noted
Physical Exam
Vital Signs
Temp Pulse Resp BP Pulse Ox
98 F 117 18 143/98 96
06/02/24 08:02 06/02/24 08:02 06/02/24 08:02 06/02/24 08:02 06/02/24 08:02
Lab Results
06/02/24 05:32
06/02/24 05:32
Troponin I 0.016 ng/ml 05/26/24 22:38
Physical Exam
General: No Apparent Distress and Comfortable
HEENT: Normocephalic, Anicteric and Moist Mucous Membranes
Respiratory: Clear and Non Labored Respirations
Cardiac: S1/S2 and Irregular Rhythm
GI: Soft, Non Tender, Non Distended and Normal Bowel Sounds
Musculoskeletal: No Clubbing, No Cyanosis and Edema (1 + of B/L UE)
Skin: Warm, Dry and Other (ecchymoses to L elbow)
Neuro: AO x 3
Impression / Plan
-
Primary hedis review nurse: none
Assessment:
Presentation with seizure activity
Substance withdrawal
Alcoholism
IV heroin use
Sepsis secondary to aspiration PNA
HTN urgency
Hypomagnesemia
Cardiac ectopy - PACs, PVCs, PAT, NSVT
Large L cephalic vein superficial thrombosis
DM2
Tobacco use (chewing tobacco)
Noncompliance
ECHO 05/23/24: EF 65-70%, no significant valvular disease
Plan:
-Patient with alcoholism and IV heroin use who had stopped using approximately 1 week prior to traveling to the area for [employer] presented with seizure activity likely secondary to substance withdrawal. UDS was positive for fentanyl. he was
treated for sepsis secondary to aspiration pneumonia as well as correction of electrolyte abnormalities and hypertensive urgency. He is planned for discharge today. Cardiology consulted as noted on telemetry to have significant ectopy including
PACs PVCs paroxysmal atrial tachycardia and nonsustained ventricular tachycardia. An EKG on 05/22 was read as atrial fibrillation in addition. He is asymptomatic
-arrhythmia/ectopy likely secondary to acute withdrawal/chronic substance abuse
-Echocardiogram with results as above
-Would continue Toprol 100 mg daily, started this admission. also started on lisinopril and nifedipine for BP control.
-He is currently on Eliquis 10mg BID due to large left cephalic vein thrombosis
-Continue electrolyte repletion. Will place on daily magnesium to be continued upon DC
-He is from [place]. He will need to follow-up with hedis review nurse near his home and should be considered for stress testing and possible monitoring engineer.
-urged importance of cessation from tobacco, ETOH, and illicit drugs.
Data Reviewed
-
EKG: Tracing Personally Visualized and interpreted
Medical Tests (Nuc Med, Echo etc): Report Reviewed by me
Labs: Labs Reviewed by me
Old Records: Reviewed
--- NOTE | 2024-06-02 11:39 | W.DCSUMMARY ---
Addendum entered and electronically signed by Jonny Bennett MD 06/02/24 12:57:
Read, reviewed, and agree. See same day progress note for additional details.
Original Note:
Discharge Summary
Discharge Data
Date of Admission: 05/20/24
Date of Discharge: 06/02/24
-
Pending Results: No
Hospital Course
Patient is a 63-year-old male with past medical history of non-insulin dependent diabetes, chronic alcohol use disorder, chronic opioid use disorder. He lives in [place] and had visited [facility] for Thanksgiving with his friends. He had usual
amount of drink (4 pints of whiskey), however, started appearing confused and shaking in the morning after Thanksgiving. His friend suspected seizure activity in the morning and brought him to the ED. On admission, he admitted to probably stopping
heroin about a week ago. In the ED, he was hypomagnesemic and received magnesium drip, as well as Ativan, Zofran and fluids.
Patient was admitted to telemetry for further evaluation of possible alcohol withdrawal syndrome. He was placed on MSAS with ativan/ phenobarb taper for alcohol withdrawal. Also, was placed on COWS for opioid withdrawal with Subutex as needed. For
he is history of diabetes, he was placed on SSI and Lantus with bedside glucose monitoring. On the evening of admission, he became agitated and vomited couple times. He required frequent MSAS evaluation, thus was transferred to the IMU for closer
monitoring. Following day, he developed worsening agitation and was transferred to the ICU due to Precedex requirement. Meanwhile, he developed acute hypoxic respiratory failure with Chest x-ray suggesting possible pneumonia (likely due to
aspiration from nausea/vomiting). He was made n.p.o. placed on high flow oxygen with CPAP at bedtime due to signs of JENSEN. Also, was started on Unasyn and IV fluids. During his stay in the ICU, he experienced a notable drop in platelet count with 4
T-score=14% (translating to intermediate risk). Lovenox was held on 05/23 and 05/24 and SCD was placed for DVT prophylaxis. HIT panel was negative. Coagulation panel, hepatitis panel both within normal limits. platelet count trended up and
Lovenox was restarted on 05/25. On 05/25, he was downgraded from ICU to IMU since he did not require any Precedex but remained somewhat confused. He was also able to be weaned off oxygen and was made p.o. after speech evaluation. He complained of
heartburn after becoming p.o. which seem to improve after being given Carafate, PPI, Pepcid. Also his hiccups improved with baclofen. While in the IMU, left upper extremity swelling was noted. Ultrasound was performed which showed thrombus within
the left cephalic vein throughout the upper arm. According to radiology, although thrombosis and superficial pain, due to its proximity, they recommended DVT treatment. So, heparin drip was initially started with eventual transition to Eliquis 10
twice daily. Patient mental status improved and he was downgraded to telemetry. PT OT visited patient daily
Patient was found to have irregular heart rhythm suspicious for paroxysmal A-fib with RVR on twelve-lead EKG while in the ICU. 2D echo was requested which was unremarkable. Cardiology was consulted who reviewed telemetry and ruled out A-fib.
However, patient remained tachycardic with SA/PVCs/PACs on telemetry. He was initially started on metoprolol 5 as needed to control heart rate which was not enough. Toprol XL 50 was added which did not help with rate control. He also had high blood
pressures during his stay. Lisinopril, Procardia, Toprol XL and hydralazine (as needed) were given; however, blood pressure still remain relatively high. Cardiology was consulted for review of both tachycardia and elevated blood pressure not
responding to medication. They suggest outpatient follow-up with a histotechnologist in [place] for possible outpatient stress test and evaluation PAF/PAT/ectopy/NSVT and to continue current medications.
Chest x-ray (05/22):Subtle increased bronchovascular markings in the lung bases, and slightly more pronounced mild airspace opacity in the medial right lung base. Possibly reflecting hypoinflation/atelectasis. Cannot exclude mild pneumonia in the
proper setting.
Chest x-ray (05/27): parenchymal airspace opacity in both lower lungs, greater on the left compared to the right, and fairly similar to most recent radiograph of May 22, 2024. Main differential considerations of pneumonia and/or atelectasis
abdominal ultrasound (05/23): Some apparent heterogeneity of the hepatic echotexture with mildly irregular hepatic capsular contour, suspicious for cirrhosis. There is very small volume perihepatic ascites.
2D-echo (05/23): Normal regional wall motion. Top normal left ventricular wall thickness. Left ventricular ejection fraction is 65-70%. No significant valvular disease.
Peripheral vascular ultrasound (05/24):No evidence of deep venous thrombosis of the right upper extremity.Thrombus within the left cephalic vein throughout the upper arm.
Today patient is medically stable for discharge to home. He has been advised to quit alcohol and opioids. He has been given instruction regarding his new medications. And advised to follow-up with cardiology as outpatient.
Discharge Plan
-
Patient Disposition: Home (Routine Discharge)
Discharge Diagnosis/Procedures: Alcohol withdrawal syndrome
Condition: Fair
Diet: Low Fat, Low Cholesterol and Low Sodium
Additional Diets: Restrict alcohol intake
Activity: With assistance
Driving Restrictions: As prior to admission
Bathing Restrictions: None
Referrals:
PRIVATE,PHYSICIAN [Family Provider] -
Prescriptions:
New
loperamide 2 mg Capsule
2 mg PO Q6HPRN PRN (Reason: diarrhea) 14 Days Qty: 20 0RF
Eliquis 5 mg Tablet
10 mg PO BID Qty: 60 0RF
Rx Instructions:
take Eliquis 10mg twice daily for next 3 days and 5mg twice daily for another 23 days.
lisinopril 20 mg Tablet
20 mg PO DAILY 30 Days Qty: 30 0RF
nifedipine 30 mg Tablet Extended Release
30 mg PO DAILY 30 Days Qty: 30 0RF
sucralfate 1 gram Tablet
1 g PO TID 14 Days Qty: 42 0RF
pantoprazole 40 mg Tablet,Delayed Release (Dr/Ec)
40 mg PO BID 30 Days Qty: 60 0RF
famotidine 20 mg Tablet
20 mg PO HS 14 Days Qty: 14 0RF
baclofen 10 mg Tablet
10 mg PO Q6H 7 Days Qty: 28 0RF
metoprolol succinate 100 mg Tablet Extended Release 24 Hr
100 mg PO DAILY 30 Days Qty: 30 0RF
Continued
Theragen Tablet
1 tab PO DAILY
folic acid 1 mg Tablet
1 mg PO DAILY
Discharge Date and Time
Print Language: TOGOLESE
[2024-06-02 12:04] LABS: Glucose - Point of Care 190 mg/dl (70-99)
[2024-06-02] MEDS: MAGNESIUM OXIDE 500 MG PO (12:41)
[2024-06-02] MEDS: NOVOLOG FLEXPEN-MODERATE RESISTANCE 1 UNITS SC (12:41)
[2024-06-02] MEDS: LIORESAL 5 MG PO (13:04)
--- NOTE | 2024-06-02 18:34 | PTCARENOTE ---
Midline removed by VAT. Discharge instructions printed and reviewed with patient and family member who verbalized understanding. Pt transported off the floor via wheelchair by PCT with belongings from room.
== END 2024-06-02 17:59 | disposition home or self-care (01) | DRG 871 ==
LOC: 4 EAST ACU 14:10
PROVIDERS: Hospitalist; Internal Medicine; Internal Medicine Critical Care Medicine; Nurse Practitioner Family; Nurse Practitioner Gerontology; Student in an Organized Health Care Education/Training Program; ADMITTING PHYSICIAN Family Medicine; ATTENDING PHYSICIAN Internal Medicine; CONSULT PHYSICIAN Internal Medicine; CONSULT PHYSICIAN Internal Medicine Cardiovascular Disease; EMERGENCY PHYSICIAN Emergency Medicine
PROC: 5A09357 Assistance with Respiratory Ventilation, Less than 24 Consecutive Hours, Continuous Positive Airway Pressure (ICD-10-PCS; 2024-05-22)
DX: A41.9 Sepsis, unspecified organism (principal); J18.9 Pneumonia, unspecified organism; J69.0 Pneumonitis due to inhalation of food and vomit; J96.01 Acute respiratory failure with hypoxia; F10.231 Alcohol dependence with withdrawal delirium; E87.20 Acidosis, unspecified; F11.23 Opioid dependence with withdrawal; R18.8 Other ascites; D68.9 Coagulation defect, unspecified; E87.0 Hyperosmolality and hypernatremia; I47.19 Other supraventricular tachycardia; I47.20 Ventricular tachycardia, unspecified; I82.612 Acute embolism and thrombosis of superficial veins of left upper extremity; R65.20 Severe sepsis without septic shock; R41.82 Altered mental status, unspecified; K21.9 Gastro-esophageal reflux disease without esophagitis; I10 Essential (primary) hypertension; E11.65 Type 2 diabetes mellitus with hyperglycemia; R56.9 Unspecified convulsions; I48.0 Paroxysmal atrial fibrillation; F19.10 Other psychoactive substance abuse, uncomplicated; G47.33 Obstructive sleep apnea (adult) (pediatric); I49.3 Ventricular premature depolarization; I16.0 Hypertensive urgency; R12 Heartburn; F17.220 Nicotine dependence, chewing tobacco, uncomplicated; E83.42 Hypomagnesemia; E87.8 Other disorders of electrolyte and fluid balance, not elsewhere classified; D64.9 Anemia, unspecified; D69.6 Thrombocytopenia, unspecified; E87.6 Hypokalemia; Z59.71 Insufficient health insurance coverage; Z56.0 Unemployment, unspecified; Z91.199 Patient's noncompliance with other medical treatment and regimen due to unspecified reason; Z78.1 Physical restraint status; Z82.49 Family history of ischemic heart disease and other diseases of the circulatory system
CPT/HCPCS: 70450; 71045; 76700; 80048; 80053; 80306; 80307; 81003; 81015; 82010; 82077; 82248; 82805; 82947; 82962; 83036; 83605; 83735; 84100; 84443; 84484; 85025; 85027; 85610; 85730; 86022; 86704; 86705; 86706; 86708; 86709; 86803; 87040; 87086; 87340; 92526; 92610; 93005; 93306; 93970; 94660; 96374; 96375; 97116; 97163; 97167; 97535; 99285; J2358